=== PATIENT | male | born 1965 | race Caucasian/White ===

== ENCOUNTER 2016-05-24 19:09 | Emergency (ER) | payer MEDICARE ==
[~2016-05-24] VITALS: Ht 175.3 cm; Wt 79.4 kg
[2016-05-24] MEDS ORDERED: LITH600C PO (19:51)
[2016-05-24] MEDS ORDERED: SERO400T PO (19:51)
[2016-05-24 20:23] LABS: MEAN CORPUSCULAR HEMOGLOBIN 32.9 pg (27.0-33.0); MEAN CORPUSCULAR HGB CONC 34.6 g/dl (32.0-36.5); MEAN CORPUSCULAR VOLUME 95.1 fl (80.0-96.0); RED CELL DISTRIBUTION WIDTH 12.7 % (11.5-14.5); WHITE BLOOD COUNT 5.7 K/mm3 (4.0-10.0)
[2016-05-24 20:35] LABS: METHADONE URINE NEGATIVE (NEGATIVE)
[2016-05-24 20:50] LABS: ALBUMIN 4.2 GM/DL (3.2-5.2); ALBUMIN/GLOBULIN RATIO 1.45 (1.00-1.93); ALKALINE PHOSPHATASE 69 U/L (45-117); ALT/SGPT 181 U/L (12-78); ANION GAP 10 MEQ/L (8-16); AST/SGOT 118 U/L (15-37); BILIRUBIN,DIRECT 0.1 MG/DL (0.0-0.2); BILIRUBIN,TOTAL 0.3 MG/DL (0.2-1.0); BLOOD UREA NITROGEN 6 MG/DL (7-18); CALCIUM LEVEL 8.2 MG/DL (8.5-10.1); CARBON DIOXIDE LEVEL 23 MEQ/L (21-32); CHLORIDE LEVEL 104 MEQ/L (98-107); CREATININE FOR GFR 0.54 MG/DL (0.70-1.30); GLOMERULAR FILTRATION RATE > 60.0 (>56); GLUCOSE, FASTING 87 MG/DL (70-105); SODIUM LEVEL 137 MEQ/L (136-145); TOTAL PROTEIN 7.1 GM/DL (6.4-8.2)
[2016-05-25] MEDS ORDERED: METAL LOCK LOOP XX ONE ×2 (02:40→11:15)
[2016-05-25] MEDS ORDERED: OXAZEPAM 15 MG CAP PO ONE (06:45)
[2016-05-25 13:13] VITALS: BP 160/91
[2016-05-26] MEDS ORDERED: METAL LOCK LOOP XX ONE (18:40)
== END 2016-05-25 14:21 | disposition home or self-care (01) ==
LOC: M ED 19:09
DX: F10.229 Alcohol dependence with intoxication, unspecified (principal); F32.9 Major depressive disorder, single episode, unspecified; R45.851 Suicidal ideations; Z91.5 Personal history of self-harm; F17.210 Nicotine dependence, cigarettes, uncomplicated
CPT/HCPCS: 36415; 80048; 80076; 80178; 80306; 84443; 85027; 99285; G0480

== ENCOUNTER 2016-08-25 12:15 | Emergency (ER) | payer MEDICARE, OTHER ==
[~2016-08-25] VITALS: Ht 175.3 cm; Wt 79.5 kg
[~2016-08-25 12:15] MED LIST: LITH600C PO; SERO400T PO
[2016-08-25] MEDS ORDERED: ATIV1TAB7 PO (12:40)
[2016-08-25] MEDS ORDERED: GABA-283 PO (12:40)
[2016-08-25] MEDS ORDERED: AMLO10TA2 PO (12:40)
[2016-08-25 13:02] LABS: MEAN CORPUSCULAR HGB CONC 34.5 g/dl (32.0-36.5); MEAN CORPUSCULAR VOLUME 95.6 fl (80.0-96.0); RED CELL DISTRIBUTION WIDTH 13.3 % (11.5-14.5); WHITE BLOOD COUNT 9.2 K/mm3 (4.0-10.0)
[2016-08-25 13:22] LABS: ALBUMIN 3.7 GM/DL (3.2-5.2); ALBUMIN/GLOBULIN RATIO 1.03 (1.00-1.93); ALKALINE PHOSPHATASE 90 U/L (45-117); ALT/SGPT 63 U/L (12-78); ANION GAP 9 MEQ/L (8-16); AST/SGOT 49 U/L (15-37); BILIRUBIN,DIRECT 0.1 MG/DL (0.0-0.2); BILIRUBIN,TOTAL 0.4 MG/DL (0.2-1.0); BLOOD UREA NITROGEN 4 MG/DL (7-18); CALCIUM LEVEL 8.6 MG/DL (8.5-10.1); CARBON DIOXIDE LEVEL 25 MEQ/L (21-32); CHLORIDE LEVEL 103 MEQ/L (98-107); CREATININE FOR GFR 0.48 MG/DL (0.70-1.30); GLOMERULAR FILTRATION RATE > 60.0 (>56); GLUCOSE, FASTING 84 MG/DL (70-105); POTASSIUM SERUM 4.1 MEQ/L (3.5-5.1); SODIUM LEVEL 137 MEQ/L (136-145); TOTAL PROTEIN 7.3 GM/DL (6.4-8.2)
[2016-08-25 14:36] LABS: METHADONE URINE NEGATIVE (NEGATIVE)
[2016-08-25 22:22] VITALS: BP 134/74
== END 2016-08-25 22:24 | disposition home or self-care (01) ==
LOC: M ED 14:49
DX: F10.229 Alcohol dependence with intoxication, unspecified (principal); F32.9 Major depressive disorder, single episode, unspecified; Z91.5 Personal history of self-harm; F17.200 Nicotine dependence, unspecified, uncomplicated; Z79.899 Other long term (current) drug therapy; Z88.6 Allergy status to analgesic agent; Z88.5 Allergy status to narcotic agent; Z88.0 Allergy status to penicillin; Z91.040 Latex allergy status
CPT/HCPCS: 36415; 80048; 80076; 80306; 84443; 85027; 99284; G0480

== ENCOUNTER 2017-02-03 22:08 | Emergency (ER) | payer MEDICARE ==
[~2017-02-03] VITALS: Ht 177.8 cm; Wt 77.3 kg
[~2017-02-03 22:08] MED LIST changes: +AMLO10TA2 PO; +ATIV1TAB7 PO; +GABA-283 PO
[2017-02-03 23:15] LABS: MEAN CORPUSCULAR HEMOGLOBIN 32.7 pg (27.0-33.0); MEAN CORPUSCULAR HGB CONC 35.2 g/dl (32.0-36.5); PLATELET COUNT, AUTOMATED 297 10^3/uL (150-450); RED CELL DISTRIBUTION WIDTH 13.5 % (11.5-14.5); WHITE BLOOD COUNT 5.9 10^3/uL (4.0-10.0)
[2017-02-03 23:46] LABS: METHADONE URINE NEGATIVE (NEGATIVE)
[2017-02-03 23:58] LABS: ALBUMIN/GLOBULIN RATIO 1.14 (1.00-1.93); ALKALINE PHOSPHATASE 58 U/L (45-117); ALT/SGPT 74 U/L (12-78); ANION GAP 8 MEQ/L (8-16); AST/SGOT 63 U/L (7-37); BILIRUBIN,DIRECT < 0.1 MG/DL (0.0-0.2); BILIRUBIN,TOTAL 0.2 MG/DL (0.2-1.0); BLOOD UREA NITROGEN 8 MG/DL (7-18); CALCIUM LEVEL 8.5 MG/DL (8.5-10.1); CARBON DIOXIDE LEVEL 27 MEQ/L (21-32); CHLORIDE LEVEL 108 MEQ/L (98-107); CREATININE FOR GFR 0.75 MG/DL (0.70-1.30); GLOMERULAR FILTRATION RATE > 60.0 (>56); GLUCOSE, FASTING 92 MG/DL (70-105); POTASSIUM SERUM 4.2 MEQ/L (3.5-5.1); SODIUM LEVEL 143 MEQ/L (136-145); TOTAL PROTEIN 7.5 GM/DL (6.4-8.2)
[2017-02-04] MEDS ORDERED: LORazepam 1 MG TAB PO STA (10:24)
[2017-02-04] MEDS ORDERED: OXAZEPAM 15 MG CAP PO ONE (12:00)
[2017-02-04 18:29] VITALS: BP 172/112
== END 2017-02-04 18:32 ==
LOC: M ED 22:08
DX: F10.229 Alcohol dependence with intoxication, unspecified (principal)
CPT/HCPCS: 80048; 80076; 80307; 84443; 85027; 99284; G0480

== ENCOUNTER 2017-04-11 15:11 | Inpatient (IN) | payer MEDICARE ==
[2017-04-11 16:17] LABS: HEMATOCRIT 39.2 % (42.0-52.0); HEMOGLOBIN 13.7 g/dl (14.0-18.0); MEAN CORPUSCULAR HEMOGLOBIN 32.4 pg (27.0-33.0); MEAN CORPUSCULAR HGB CONC 34.9 g/dl (32.0-36.5); MEAN CORPUSCULAR VOLUME 92.7 fl (80.0-96.0); PLATELET COUNT, AUTOMATED 255 10^3/uL (150-450); RED BLOOD COUNT 4.23 10^6/uL (4.30-6.10); RED CELL DISTRIBUTION WIDTH 13.2 % (11.5-14.5); WHITE BLOOD COUNT 7.7 10^3/uL (4.0-10.0)
[2017-04-11 16:30] LABS: AMPHETAMINES LEVEL URINE NEGATIVE (NEGATIVE); BARBITURATES URINE NEGATIVE (NEGATIVE); BENZODIAZEPINES URINE NEGATIVE (NEGATIVE); CANNABINOIDS URINE NEGATIVE (NEGATIVE); COCAINE METABOLITE URINE NEGATIVE (NEGATIVE); METHADONE URINE NEGATIVE (NEGATIVE); OPIATES URINE NEGATIVE (NEGATIVE); PHENCYCLIDINE URINE NEGATIVE (NEGATIVE)
[2017-04-11 16:41] LABS: ALBUMIN 4.6 GM/DL (3.2-5.2); ALBUMIN/GLOBULIN RATIO 1.48 (1.00-1.93); ALKALINE PHOSPHATASE 65 U/L (45-117); ALT/SGPT 39 U/L (12-78); ANION GAP 10 MEQ/L (8-16); AST/SGOT 35 U/L (7-37); BILIRUBIN,DIRECT < 0.1 MG/DL (0.0-0.2); BILIRUBIN,TOTAL 0.2 MG/DL (0.2-1.0); BLOOD UREA NITROGEN 9 MG/DL (7-18); CARBON DIOXIDE LEVEL 25 MEQ/L (21-32); CHLORIDE LEVEL 105 MEQ/L (98-107); CREATININE FOR GFR 0.56 MG/DL (0.70-1.30); ETHYL ALCOHOL (ETHANOL) 0.307 % (0.000-0.010); GLOMERULAR FILTRATION RATE > 60.0 (>56); GLUCOSE, FASTING 83 MG/DL (70-100); POTASSIUM SERUM 4.1 MEQ/L (3.5-5.1); SALICYLATE LEVEL 5.7 MG/DL (5.0-30.0); SODIUM LEVEL 140 MEQ/L (136-145); THYROID STIMULATING HORMONE 0.272 uIU/ML (0.358-3.740); TOTAL PROTEIN 7.7 GM/DL (6.4-8.2)
[2017-04-11 16:47] LABS: ACETAMINOPHEN LEVEL < 2.0 UG/ML (10.0-30.0)
[2017-04-12] MEDS: PHENobarbital 30 MG TAB PO (04:30)
[2017-04-12] MEDS ORDERED: MOM 30ML SUSPENSION UDC PO (06:15)
[2017-04-12] MEDS ORDERED: MAALOX 30 ML SUSP *UDC PO (06:15)
[2017-04-12] MEDS: THIAMINE 100 MG TAB PO ×2 (10:58→21:15)
[2017-04-12] MEDS: FOLIC ACID 1 MG TAB PO (10:58)
[2017-04-12] MEDS: MULTIVITAMINS/MINERALS THERAP 1 TAB PO (10:58)
[2017-04-12] MEDS: LORazepam 2 MG TAB PO (11:06)
[2017-04-12] MEDS: NICOTINE 21MG/24HR 1 EA TRANSDERMAL TD (12:01)
[2017-04-12] MEDS: LISINOPRIL 40 MG TAB PO (12:31)
[2017-04-12] MEDS: QUEtiapine FUMARATE 200 MG TAB PO ×2 (12:49→21:15)
[2017-04-12] MEDS: levETIRAcetam 250MG TABLET (KEPPRA) PO ×2 (12:49→21:16)
[2017-04-12] MEDS: traZODone 50 MG TAB PO (21:15)
[2017-04-13] MEDS: MULTIVITAMINS/MINERALS THERAP 1 TAB PO (08:38)
[2017-04-13] MEDS: FOLIC ACID 1 MG TAB PO (08:38)
[2017-04-13] MEDS: THIAMINE 100 MG TAB PO ×2 (08:38→20:22)
[2017-04-13] MEDS: levETIRAcetam 250MG TABLET (KEPPRA) PO ×2 (08:38→20:22)
[2017-04-13] MEDS: LISINOPRIL 40 MG TAB PO (08:38)
[2017-04-13] MEDS: QUEtiapine FUMARATE 200 MG TAB PO ×2 (08:38→20:22)
[2017-04-13] MEDS: NICOTINE 21MG/24HR 1 EA TRANSDERMAL TD (08:39)
[2017-04-13] MEDS: LORazepam 2 MG TAB PO (14:32)
[2017-04-14] MEDS: LISINOPRIL 40 MG TAB PO (08:22)
[2017-04-14] MEDS: FOLIC ACID 1 MG TAB PO (08:23)
[2017-04-14] MEDS: levETIRAcetam 250MG TABLET (KEPPRA) PO ×2 (08:23→20:12)
[2017-04-14] MEDS: MULTIVITAMINS/MINERALS THERAP 1 TAB PO (08:23)
[2017-04-14] MEDS: THIAMINE 100 MG TAB PO ×2 (08:23→20:12)
[2017-04-14] MEDS: QUEtiapine FUMARATE 200 MG TAB PO ×2 (08:23→21:26)
[2017-04-14] MEDS: NICOTINE 21MG/24HR 1 EA TRANSDERMAL TD (08:24)
[2017-04-14] MEDS: hydrOXYzine 50 MG TAB PO (17:07)
[2017-04-15] MEDS: LISINOPRIL 40 MG TAB PO (08:06)
[2017-04-15] MEDS: MULTIVITAMINS/MINERALS THERAP 1 TAB PO (08:06)
[2017-04-15] MEDS: SERTRALINE HCL 50 MG TAB PO (08:06)
[2017-04-15] MEDS: QUEtiapine FUMARATE 200 MG TAB PO ×2 (08:06→20:04)
[2017-04-15] MEDS: FOLIC ACID 1 MG TAB PO (08:06)
[2017-04-15] MEDS: levETIRAcetam 250MG TABLET (KEPPRA) PO ×2 (08:06→20:04)
[2017-04-15] MEDS: NICOTINE 21MG/24HR 1 EA TRANSDERMAL TD (08:08)
[2017-04-15 08:17] LABS: FREE THYROXINE INDEX 1.9 % (1.4-3.8); T UPTAKE 33 % (33-40); THYROXINE (T4) 5.9 UG/DL (4.5-12.0)
[2017-04-15] MEDS ORDERED: traZODone 50 MG TAB PO (18:30)
[2017-04-16] MEDS: SERTRALINE HCL 50 MG TAB PO (08:41)
[2017-04-16] MEDS: FOLIC ACID 1 MG TAB PO (08:41)
[2017-04-16] MEDS: LISINOPRIL 40 MG TAB PO (08:41)
[2017-04-16] MEDS: QUEtiapine FUMARATE 200 MG TAB PO (08:41)
[2017-04-16] MEDS: levETIRAcetam 250MG TABLET (KEPPRA) PO (08:41)
[2017-04-16] MEDS: MULTIVITAMINS/MINERALS THERAP 1 TAB PO (08:41)
[2017-04-16] MEDS: NICOTINE 21MG/24HR 1 EA TRANSDERMAL TD (08:42)
== END 2017-04-16 13:57 | disposition home or self-care (01) | DRG 897 ==
LOC: M ED INP 04-12 06:15 → M PSY 04-12 09:06 → M ED 15:11
DX: F10.24 Alcohol dependence with alcohol-induced mood disorder (principal); R45.851 Suicidal ideations; I10 Essential (primary) hypertension; S62.101D Fracture of unspecified carpal bone, right wrist, subsequent encounter for fracture with routine healing; F17.210 Nicotine dependence, cigarettes, uncomplicated; R94.6 Abnormal results of thyroid function studies; Z79.899 Other long term (current) drug therapy; Z98.1 Arthrodesis status; Z88.0 Allergy status to penicillin; Z91.040 Latex allergy status; Z88.6 Allergy status to analgesic agent; Z88.5 Allergy status to narcotic agent; Z88.8 Allergy status to other drugs, medicaments and biological substances; X58.XXXD Exposure to other specified factors, subsequent encounter; Y93.9 Activity, unspecified

== ENCOUNTER 2017-10-01 10:29 | Day surgery (SDC) | payer MEDICARE ==
[2017-10-01] MEDS ORDERED: PROPOFOL 200 MG/20 ML VIAL As Ordered ×2 (10:39→12:32)
[2017-10-01] MEDS ORDERED: fentaNYL 100 MCG/2 ML INJECTION (J3010) As Ordered (10:40)
[2017-10-01] MEDS: NS 1,000 ML IV (10:45)
[2017-10-01] MEDS: MIDAZOLAM INJ 2 MG/2 ML VIAL (J2250) IV ×2 (11:27→11:32)
[2017-10-01] MEDS ORDERED: LIDOCAINE 2% INJ 100 MG/5 ML SDV (FOR ANES.) As Ordered (12:15)
== END 2017-10-01 13:27 | disposition home or self-care (01) ==
LOC: M OPP 10:29
DX: Z12.11 Encounter for screening for malignant neoplasm of colon (principal); Z80.0 Family history of malignant neoplasm of digestive organs; D12.5 Benign neoplasm of sigmoid colon; K62.1 Rectal polyp; K64.0 First degree hemorrhoids; K92.1 Melena; K44.9 Diaphragmatic hernia without obstruction or gangrene; K31.89 Other diseases of stomach and duodenum; I10 Essential (primary) hypertension; Z87.19 Personal history of other diseases of the digestive system; F32.9 Major depressive disorder, single episode, unspecified; F41.9 Anxiety disorder, unspecified; R56.9 Unspecified convulsions; J44.9 Chronic obstructive pulmonary disease, unspecified; J45.909 Unspecified asthma, uncomplicated; G47.30 Sleep apnea, unspecified; Z98.1 Arthrodesis status; F17.210 Nicotine dependence, cigarettes, uncomplicated; Z88.8 Allergy status to other drugs, medicaments and biological substances; Z91.040 Latex allergy status; Z88.2 Allergy status to sulfonamides; Z79.899 Other long term (current) drug therapy; Z80.42 Family history of malignant neoplasm of prostate
CPT/HCPCS: 45385

== ENCOUNTER 2018-05-08 11:50 | Emergency (ER) | payer MEDICARE, OTHER ==
[~2018-05-08] VITALS: Ht 177.8 cm; Wt 80.5 kg
[~2018-05-08 11:50] MED LIST changes: -AMLO10TA2 PO; +AMLO10TA5 PO; +ASPI1TAB PO; +FOLI1TAB11 PO; -GABA-283 PO; +GABA-845 PO; +KEPP1TAB PO; +KEPP250T5 PO; +LISI40TA PO; +NICO21PAT TD; +QUET1TAB9 PO; +RISP1TAB3 PO; +SERO200T PO; +SERT50TA PO; +TRAZO50TA PO; +VENTAER INH
[2018-05-08] MEDS ORDERED: HALOPERIDOL 5 MG/ML VIAL (J1630) IM ONE (13:00)
[2018-05-08] MEDS ORDERED: LORazepam 2 MG/ML VIAL (J2060) IM ONE (13:00)
[2018-05-08] MEDS ORDERED: LORazepam 2 MG/ML VIAL (J2060) As Ordered ONE (13:01)
[2018-05-08] MEDS ORDERED: HALOPERIDOL 5 MG/ML VIAL (J1630) As Ordered ONE (13:02)
[2018-05-08 14:10] LABS: HEMATOCRIT 40.4 % (42.0-52.0); HEMOGLOBIN 14.2 g/dl (13.5-17.5); MEAN CORPUSCULAR HEMOGLOBIN 31.8 pg (27.0-33.0); MEAN CORPUSCULAR HGB CONC 35.1 g/dl (32.0-36.5); MEAN CORPUSCULAR VOLUME 90.4 fl (80.0-96.0); PLATELET COUNT, AUTOMATED 266 10^3/uL (150-450); RED BLOOD COUNT 4.47 10^6/uL (4.30-6.10); WHITE BLOOD COUNT 8.5 10^3/uL (4.0-10.0)
[2018-05-08 14:18] LABS: AMPHETAMINES LEVEL URINE NEGATIVE (NEGATIVE); BARBITURATES URINE NEGATIVE (NEGATIVE); BENZODIAZEPINES URINE NEGATIVE (NEGATIVE); CANNABINOIDS URINE NEGATIVE (NEGATIVE); COCAINE METABOLITE URINE NEGATIVE (NEGATIVE); METHADONE URINE NEGATIVE (NEGATIVE); OPIATES URINE NEGATIVE (NEGATIVE); PHENCYCLIDINE URINE NEGATIVE (NEGATIVE)
[2018-05-08 14:28] LABS: ACETAMINOPHEN LEVEL < 2.0 UG/ML (10.0-30.0); ALBUMIN 4.4 GM/DL (3.2-5.2); ALT/SGPT 35 U/L (12-78); BILIRUBIN,DIRECT < 0.1 MG/DL (0.0-0.2); BILIRUBIN,TOTAL 0.2 MG/DL (0.2-1.0); BLOOD UREA NITROGEN 7 MG/DL (7-18); CALCIUM LEVEL 8.2 MG/DL (8.5-10.1); CARBON DIOXIDE LEVEL 17 MEQ/L (21-32); CHLORIDE LEVEL 104 MEQ/L (98-107); CREATININE FOR GFR 0.61 MG/DL (0.70-1.30); ETHYL ALCOHOL (ETHANOL) 0.231 % (0.000-0.010); GLOMERULAR FILTRATION RATE > 60.0 (>56); GLUCOSE, FASTING 87 MG/DL (70-100); SALICYLATE LEVEL 7.5 MG/DL (5.0-30.0); SODIUM LEVEL 135 MEQ/L (136-145); THYROID STIMULATING HORMONE 0.407 uIU/ML (0.358-3.740); TOTAL PROTEIN 7.7 GM/DL (6.4-8.2)
--- NOTE | 2018-05-08 16:11 | REP ---
RIGHT WRIST, FOUR VIEWS: There is no evidence of an acute fracture, dislocation or intrinsic bone disease. IMPRESSION: No fracture or dislocation. Electronically Signed by Rafi Be MD 05/11/2018 12:00 P
--- NOTE | 2018-05-08 16:12 | REP ---
RIGHT HAND: There is no evidence of an acute fracture, dislocation or intrinsic bone disease. IMPRESSION: No fracture or dislocation. Electronically Signed by Rafi Be MD 05/11/2018 12:01 P
[2018-05-08] MEDS ORDERED: OXAZEPAM 15 MG CAP PO ONE (20:45)
[2018-05-08] MEDS ORDERED: OXAZ30CA2 PO (21:24)
[2018-05-08 21:41] VITALS: BP 139/94
== END 2018-05-08 22:06 | disposition home or self-care (01) ==
LOC: M ED 11:50
DX: F10.129 Alcohol abuse with intoxication, unspecified (principal); F32.9 Major depressive disorder, single episode, unspecified; F43.0 Acute stress reaction; I10 Essential (primary) hypertension; F41.9 Anxiety disorder, unspecified; R45.851 Suicidal ideations; Z79.899 Other long term (current) drug therapy; Z88.0 Allergy status to penicillin; Z88.5 Allergy status to narcotic agent; Z88.8 Allergy status to other drugs, medicaments and biological substances; Z91.040 Latex allergy status
CPT/HCPCS: 73110; 73130; 80048; 80076; 80307; 84443; 85027; 96372; 99285; G0480; J1630; J2060

== ENCOUNTER 2018-05-25 23:09 | Emergency (ER) | payer MEDICARE ==
[~2018-05-25 23:09] MED LIST changes: -ASPI1TAB PO; +ASPI81TA26 PO; +OXAZ30CA2 PO; +SERT-141 PO; -SERT50TA PO
[2018-05-25] MEDS ORDERED: OLANZapine INTRAMUSCULAR 10 MG VIAL (S0166) IM ONE (23:15)
[2018-05-25] MEDS ORDERED: LORazepam 2 MG/ML VIAL (J2060) IM ONE (23:15)
[2018-05-25 23:51] LABS: HEMATOCRIT 39.6 % (42.0-52.0); HEMOGLOBIN 13.7 g/dl (13.5-17.5); MEAN CORPUSCULAR HEMOGLOBIN 31.7 pg (27.0-33.0); MEAN CORPUSCULAR HGB CONC 34.6 g/dl (32.0-36.5); MEAN CORPUSCULAR VOLUME 91.7 fl (80.0-96.0); PLATELET COUNT, AUTOMATED 175 10^3/uL (150-450); RED BLOOD COUNT 4.32 10^6/uL (4.30-6.10); WHITE BLOOD COUNT 7.5 10^3/uL (4.0-10.0)
--- NOTE | 2018-05-26 00:21 | REPVR ---
EXAM: CT Head Without Contrast EXAM DATE/TIME: 05/25/2018 11:21 PM CLINICAL HISTORY: 53 years old, male; Injury or trauma; Fall TECHNIQUE: Imaging protocol: Axial computed tomography images of the head/brain without contrast. Radiation optimization: All CT scans at this facility use at least one of these dose optimization techniques: automated exposure control; mA and/or kV adjustment per patient size (includes targeted exams where dose is matched to clinical indication); or iterative reconstruction. COMPARISON: No relevant prior studies available. FINDINGS: Brain: No evidence of mass, midline shift, or mass effect. Mild small vessel ischemic changes. No evidence of hemorrhage. Ventricles: Normal. No ventriculomegaly. Bones/joints: Unremarkable. No acute fracture. Sinuses: Mild mucosal thickening of the ethmoidal air cells and bilateral maxillary sinuses. Mastoid air cells: Visualized mastoid air cells are unremarkable. No mastoid effusion. Soft tissues: Mild right parietal soft tissue swelling. IMPRESSION: No acute intracranial abnormality. Electronically signed by: Cailin Mitchell On 05/26/2018 00:21:03 AM
[2018-05-26 00:23] LABS: AMPHETAMINES LEVEL URINE NEGATIVE (NEGATIVE); BARBITURATES URINE NEGATIVE (NEGATIVE); BENZODIAZEPINES URINE NEGATIVE (NEGATIVE); CANNABINOIDS URINE NEGATIVE (NEGATIVE); COCAINE METABOLITE URINE NEGATIVE (NEGATIVE); METHADONE URINE NEGATIVE (NEGATIVE); OPIATES URINE NEGATIVE (NEGATIVE); PHENCYCLIDINE URINE NEGATIVE (NEGATIVE)
--- NOTE | 2018-05-26 00:27 | REPVR ---
EXAM: CT Cervical Spine Without Contrast EXAM DATE/TIME: 05/25/2018 11:21 PM CLINICAL HISTORY: 53 years old, male; Injury or trauma; Fall; Initial encounter; Concussion /head injury TECHNIQUE: Imaging protocol: Axial computed tomography images of the cervical spine without intravenous contrast. Coronal and sagittal reformatted images were created and reviewed. Radiation optimization: All CT scans at this facility use at least one of these dose optimization techniques: automated exposure control; mA and/or kV adjustment per patient size (includes targeted exams where dose is matched to clinical indication); or iterative reconstruction. COMPARISON: No relevant prior studies available. FINDINGS: Vertebrae: No acute fracture. Normal alignment. Discs/Spinal canal/Neural foramina: No spinal stenosis. No neural foraminal narrowing. Soft tissues: Unremarkable. Lungs: Lung apices are normal. IMPRESSION: No acute findings. Electronically signed by: Cailin Mitchell On 05/26/2018 00:26:31 AM
[2018-05-26 00:39] LABS: ACETAMINOPHEN LEVEL < 2.0 UG/ML (10.0-30.0); ALBUMIN 4.2 GM/DL (3.2-5.2); ALT/SGPT 75 U/L (12-78); BILIRUBIN,DIRECT < 0.1 MG/DL (0.0-0.2); BILIRUBIN,TOTAL 0.2 MG/DL (0.2-1.0); BLOOD UREA NITROGEN 7 MG/DL (7-18); CALCIUM LEVEL 8.7 MG/DL (8.5-10.1); CARBON DIOXIDE LEVEL 23 MEQ/L (21-32); CHLORIDE LEVEL 111 MEQ/L (98-107); ETHYL ALCOHOL (ETHANOL) 0.291 % (0.000-0.010); GLOMERULAR FILTRATION RATE > 60.0 (>56); GLUCOSE, FASTING 89 MG/DL (70-100); POTASSIUM SERUM 4.1 MEQ/L (3.5-5.1); SALICYLATE LEVEL 4.7 MG/DL (5.0-30.0); SODIUM LEVEL 143 MEQ/L (136-145); THYROID STIMULATING HORMONE 0.771 uIU/ML (0.358-3.740); TOTAL PROTEIN 7.3 GM/DL (6.4-8.2)
[2018-05-26] MEDS ORDERED: NS 1,000 ML IV ONE ×2 (01:15→07:30)
[2018-05-26] MEDS ORDERED: OXAZEPAM 15 MG CAP PO ONE (01:15)
--- NOTE | 2018-05-26 06:53 | ECGEPIP ---
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
[2018-05-26] MEDS ORDERED: LORazepam 2 MG TAB PO PRN (07:30)
[2018-05-26] MEDS ORDERED: THIAMINE 100 MG TAB PO SCH (09:00)
[2018-05-26] MEDS ORDERED: FOLIC ACID 1 MG TAB PO SCH (09:00)
[2018-05-26] MEDS ORDERED: MULTIVITAMINS/MINERALS THERAP 1 TAB PO SCH (09:00)
[2018-05-26] MEDS ORDERED: levETIRAcetam INJection 1,000 MG in D5W 100 ML IV ONE (10:45)
[2018-05-26 12:01] VITALS: BP 140/109
== END 2018-05-26 13:50 | disposition home or self-care (01) ==
LOC: M ED 23:09
DX: F10.10 Alcohol abuse, uncomplicated (principal); R56.9 Unspecified convulsions; F17.210 Nicotine dependence, cigarettes, uncomplicated
CPT/HCPCS: 70450; 72125; 80048; 80076; 80307; 84443; 85027; 93005; 96361; 96365; 96366; 96372; 99285; G0480; J1953; J2060

== ENCOUNTER 2018-11-09 23:56 | Inpatient (IN) | payer MEDICARE ==
[~2018-11-09] VITALS: Ht 175.3 cm; Wt 79.5 kg
[~2018-11-09 23:56] MED LIST changes: -QUET1TAB9 PO; +QUET200T2 PO; +TRAZ1TAB10 PO; -TRAZO50TA PO
[2018-11-10] MEDS ORDERED: LISI-538 PO (00:08)
[2018-11-10] MEDS ORDERED: VENL150C43 (00:08)
[2018-11-10 00:44] LABS: HEMATOCRIT 42.2 % (42.0-52.0); HEMOGLOBIN 14.8 g/dl (13.5-17.5); MEAN CORPUSCULAR HEMOGLOBIN 33.7 pg (27.0-33.0); MEAN CORPUSCULAR HGB CONC 35.1 g/dl (32.0-36.5); MEAN CORPUSCULAR VOLUME 96.1 fl (80.0-96.0); PLATELET COUNT, AUTOMATED 148 10^3/uL (150-450); RED BLOOD COUNT 4.39 10^6/uL (4.30-6.10); WHITE BLOOD COUNT 8.3 10^3/uL (4.0-10.0)
[2018-11-10 00:50] LABS: AMPHETAMINES LEVEL URINE NEGATIVE (NEGATIVE); BARBITURATES URINE NEGATIVE (NEGATIVE); BENZODIAZEPINES URINE NEGATIVE (NEGATIVE); CANNABINOIDS URINE NEGATIVE (NEGATIVE); COCAINE METABOLITE URINE NEGATIVE (NEGATIVE); METHADONE URINE NEGATIVE (NEGATIVE); OPIATES URINE NEGATIVE (NEGATIVE); PHENCYCLIDINE URINE NEGATIVE (NEGATIVE)
[2018-11-10] MEDS ORDERED: levETIRAcetam INJection 1,000 MG in D5W 100 ML IV ONE (01:00)
[2018-11-10 01:26] LABS: ACETAMINOPHEN LEVEL < 2.0 UG/ML (10.0-30.0); ALBUMIN 4.2 GM/DL (3.2-5.2); ALT/SGPT 194 U/L (12-78); BILIRUBIN,DIRECT 0.1 MG/DL (0.0-0.2); BILIRUBIN,TOTAL 0.2 MG/DL (0.2-1.0); BLOOD UREA NITROGEN 7 MG/DL (7-18); CARBON DIOXIDE LEVEL 23 MEQ/L (21-32); CHLORIDE LEVEL 108 MEQ/L (98-107); CREATININE FOR GFR 0.59 MG/DL (0.70-1.30); ETHYL ALCOHOL (ETHANOL) 0.279 % (0.000-0.010); GLOMERULAR FILTRATION RATE > 60.0 (>56); GLUCOSE, FASTING 86 MG/DL (70-100); POTASSIUM SERUM 3.8 MEQ/L (3.5-5.1); SALICYLATE LEVEL 6.7 MG/DL (5.0-30.0); SODIUM LEVEL 141 MEQ/L (136-145); THYROID STIMULATING HORMONE 0.783 uIU/ML (0.358-3.740); TOTAL PROTEIN 7.4 GM/DL (6.4-8.2)
[2018-11-10] MEDS ORDERED: METAL LOCK LOOP XX ONE (03:42)
[2018-11-10] MEDS ORDERED: OXAZEPAM 15 MG CAP PO ONE ×2 (12:30→19:00)
[2018-11-10] MEDS ORDERED: ASPI81TA85 PO (13:31)
[2018-11-10] MEDS ORDERED: B-12100021 PO (13:31)
[2018-11-10] MEDS ORDERED: OMEP-218 PO (13:32)
[2018-11-10] MEDS ORDERED: LISINOPRIL 20 MG TAB PO ONE (16:15)
[2018-11-10] MEDS ORDERED: NICOTINE 21MG/24HR 1 EA TRANSDERMAL TD ONE (16:15)
[2018-11-10] MEDS ORDERED: MAALOX 30 ML SUSP *UDC PO PRN (21:30)
[2018-11-10] MEDS ORDERED: MOM 30ML SUSPENSION UDC PO PRN (21:30)
[2018-11-10] MEDS ORDERED: ACETAMINOPHEN TAB 650MG DOSE (2X325MG) PO PRN (21:30)
[2018-11-10] MEDS: THIAMINE 100 MG TAB PO SCH (21:57)
[2018-11-10] MEDS: LORazepam 2 MG TAB PO PRN (22:11)
[2018-11-11] VITALS (8 sets, daily range): BP systolic 117–145; BP diastolic 67–95
[2018-11-11] MEDS: traZODone 50 MG TAB PO PRN ×2 (00:36→20:17)
[2018-11-11] MEDS: FOLIC ACID 1 MG TAB PO SCH (08:49)
[2018-11-11] MEDS: THIAMINE 100 MG TAB PO SCH (08:49)
[2018-11-11] MEDS: MULTIVITAMINS/MINERALS THERAP 1 TAB PO SCH (08:49)
[2018-11-11] MEDS ORDERED: NITROGLYCERIN 0.3 MG SUBL TAB SL PRN (12:00)
[2018-11-11] MEDS ORDERED: ALBUTEROL SULFATE 2.5 MG/0.5 ML INH NEB SOLN INH PRN (12:00)
[2018-11-11] MEDS: ALBUTEROL SULFATE 2.5 MG/0.5 ML INH NEB SOLN INH SCH ×3 (12:00→18:05)
--- NOTE | 2018-11-11 12:09 | HPEPDOC ---
General Date of Admission Nov 10, 2018 at 21:27 Date of Service: Nov 11, 2018 Chief Complaint The patient is a 53-year-old male who presented to the ER after experiencing suicidal thoughts History of Present Illness Patient is a 53-year-old male with a past medical history significant for hypertension, COPD, history of alcohol abuse with withdrawal symptoms (Seizures), Depression / Anxiety / Hx of Suicidal Ideation who presented to the emergency room after experiencing suicidal thoughts. Patient reported that he received a letter from his daughter that was discouraging.. He soon felt depressed and began drinking heavily. He noted to his family that he felt unsafe and he contacted suicide Hotline. Hospitalist service was consultated for medical screening evaluation. . C urrently, patient reports mild headache. He does report a mild cough with chest tightness, however, this is not unusual for him. He denies any palpitations, shortness of breath, nausea, vomiting, abdominal pain, constipation, diarrhea, discomfort with urination. Patient denies any fevers or chills over the last 2 weeks. She reports that his appetite is normal. However, he does report a weight loss over the last 1 month of 10 pounds. Home Medications Scheduled Aspirin (Aspir 81) 81 Mg Tablet.dr, 81 MG PO DAILY, (Reported) Cyanocobalamin (Vitamin B-12) (B-12) 1,000 Mcg Tablet, 1,000 MCG PO DAILY, (Reported) Lisinopril (Lisinopril) 20 Mg Tablet, 20 MG PO DAILY, (Reported) Omeprazole (Omeprazole) 20 Mg Capsule.dr, 20 MG PO DAILY, (Reported) Allergies Coded Allergies: Penicillins (Verified Allergy, Unknown, 11/10/18) diphenhydramine (Verified Allergy, Unknown, 11/10/18) hydrocodone (Verified Allergy, Unknown, 11/10/18) latex (Verified Allergy, Unknown, 11/10/18) phenytoin (Verified Allergy, Unknown, 11/10/18) primidone (Verified Allergy, Unknown, 11/10/18) Past Medical History Medical History Hypertension, COPD, history of alcohol abuse with withdrawal symptoms (Seizures), Depression / Anxiety / Hx of Suicidal Ideation Surgical History Bilateral knee arthroscopy Lumbar fusion L4-5 Hernia repair at R inguinal area Right cervical lymph node biopsy, found to be benign Family History - Patient reports that his father was an alcoholic. 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 Review of Systems Other systems 10 point review of systems complete, all negative otherwise stated in HPI Vital Signs - Vitals: BP 135/88, HR 67, RR 18, Sat 97%RA, Temp 97.8F - General: Lying in bed, No acute distress, Speaking in full sentences, AAOx3 - HEENT: NC, AT, PERRLA - CVS: RRR, +S1S2 - Lungs: Fair air entry bilaterally, No rales / rhonchi; mild wheezing can be appreciated throughout upper and lower lung summers bilaterally - Abdomen: Soft, Non-distended, Non-tender - Extremities: No lower extremity edema, No calf tenderness - Neuro: No focal motor or sensory deficit - Skin: No visible rashes Plan / VTE VTE Prophylaxis Ordered?: Yes Plan Plan Suicidal ideation - Patient presented to the emergency room after experiencing suicidal thoughts and depression after receiving a discouraging her from his daughter - This currently being managed by psychiatry Transaminitis - likely 2/2 alcohol use - Will repeat lab work tomorrow AM to ensure stability Hypertension - BP well controlled - c/w Lisinorpil with holding parameters COPD - Patient is in no respiratory distress - Physical exam does reveal mild expiratory wheezing bilaterally - Will start Albuterol and Symbicort History of alcohol abuse - Patient is currently on CIWA scale with withdrawal precautions - c/w MVI, Thiamine and Folate Hx of withdrawal symptoms - Patient has a reported history of Seizures - Will restart Keppra from outpatient Depression / Anxiety / Hx of Suicidal Ideation - Currently being managed by psychiatry GERD - Will start Omeprazole DVT prophylaxis - c/w early ambulation Greenskeeper Laborer was present for the duration of his history and physical examination We will continue to follow this patient at this time for medical optimization JENA HERNÁNDEZ MD Nov 11, 2018 12:09
[2018-11-11] MEDS: LISINOPRIL 10 MG TAB PO SCH (12:44)
[2018-11-11] MEDS: ASPIRIN 81 MG ENTERIC TAB PO SCH (12:44)
[2018-11-11] MEDS: levETIRAcetam 250MG TABLET (KEPPRA) PO SCH ×2 (12:44→20:18)
[2018-11-11] MEDS: VENLAFAXINE **XR** 75MG CAPSULE PO SCH (12:45)
[2018-11-11] MEDS: OMEPRAZOLE 20 MG CAP PO SCH (12:46)
[2018-11-11] MEDS: FLUTICASONE PROP 0.05% NASAL SPRAY 16 GM (FLONASE) NARES SCH ×2 (12:48→20:18)
[2018-11-11] MEDS: SYMBICORT 160/4.5MCG INHALER 6GM INH SCH ×2 (12:48→20:17)
[2018-11-11] MEDS: LORazepam 2 MG TAB PO PRN (14:44)
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
[2018-11-11] MEDS: QUEtiapine FUMARATE 100 MG TAB PO SCH (20:17)
[2018-11-11] MEDS: LORazepam 1 MG TAB PO SCH (20:34)
[2018-11-12 06:00] VITALS: BP 144/78
[2018-11-12 06:31] VITALS: BP 144/78
[2018-11-12] MEDS: ALBUTEROL SULFATE 2.5 MG/0.5 ML INH NEB SOLN INH SCH ×5 (08:00→17:59)
[2018-11-12 10:06] LABS: ALBUMIN 3.4 GM/DL (3.2-5.2); ALT/SGPT 120 U/L (12-78); BILIRUBIN,TOTAL 0.3 MG/DL (0.2-1.0); BLOOD UREA NITROGEN 16 MG/DL (7-18); CALCIUM LEVEL 9.1 MG/DL (8.5-10.1); CARBON DIOXIDE LEVEL 26 MEQ/L (21-32); CHLORIDE LEVEL 108 MEQ/L (98-107); GLOMERULAR FILTRATION RATE > 60.0 (>56); GLUCOSE, FASTING 93 MG/DL (70-100); SODIUM LEVEL 141 MEQ/L (136-145); TOTAL PROTEIN 6.3 GM/DL (6.4-8.2)
[2018-11-12] MEDS: ASPIRIN 81 MG ENTERIC TAB PO SCH (10:06)
[2018-11-12] MEDS: levETIRAcetam 250MG TABLET (KEPPRA) PO SCH ×2 (10:06→20:27)
[2018-11-12] MEDS: THIAMINE 100 MG TAB PO SCH (10:06)
[2018-11-12] MEDS: LISINOPRIL 10 MG TAB PO SCH (10:06)
[2018-11-12] MEDS: MULTIVITAMINS/MINERALS THERAP 1 TAB PO SCH (10:06)
[2018-11-12] MEDS: OMEPRAZOLE 20 MG CAP PO SCH (10:06)
[2018-11-12] MEDS: FOLIC ACID 1 MG TAB PO SCH (10:06)
[2018-11-12] MEDS: LORazepam 1 MG TAB PO SCH (10:07)
[2018-11-12] MEDS: FLUTICASONE PROP 0.05% NASAL SPRAY 16 GM (FLONASE) NARES SCH ×2 (10:07→20:26)
[2018-11-12] MEDS: SYMBICORT 160/4.5MCG INHALER 6GM INH SCH ×2 (10:07→20:26)
[2018-11-12] MEDS: VENLAFAXINE **XR** 75MG CAPSULE PO SCH (10:07)
[2018-11-12 10:42] VITALS: BP 138/95
[2018-11-12] MEDS: LORazepam 2 MG TAB PO PRN (10:48)
[2018-11-12] MEDS: NICOTINE 21MG/24HR 1 EA TRANSDERMAL TD PRN (10:49)
--- NOTE | 2018-11-12 12:08 | IPNPDOC ---
Text Note Date of Service The patient was seen on 11/12/18. NOTE Subjective: Patient is a 53-year-old male with a past medical history significant for hypertension, COPD, history of alcohol abuse with withdrawal symptoms (Seizures), Depression / Anxiety / Hx of Suicidal Ideation who presented to the emergency room after experiencing suicidal thoughts. Patient reported that he received a letter from his daughter that was discouraging.. He soon felt depressed and began drinking heavily. He noted to his family that he felt unsafe and he contacted suicide Hotline. Hospitalist service was consulted for medical screening evaluation. Patient was seen and examined at the bedside. Currently patient reports that his breathing is doing significantly better. He denies any chest pain, palpitations or significant cough. He does report mild wheezing in eyes. A nausea, vomiting, abdominal pain. Denies any diarrhea. Objective: Vitals (See below) General: Lying in bed, no acute distress, comfortable, AAOx3 HEENT: NC, AT CVS: RRR, +S1S2 Lungs: Fair air entry b/l, mild wheezing appreciated bilaterally. Has improved significantly from yesterday, no rhonchi or rales Abdomen: Soft, ND, NT Extremities: - Edema, - Calf tenderness Assessment and plan: Suicidal ideation - Patient presented to the emergency room after experiencing suicidal thoughts and depression after receiving a discouraging her from his daughter - This currently being managed by psychiatry Transaminitis - likely 2/2 alcohol use - Hepatitis panel was pending - Counts appear to be improving Hypertension - BP well controlled - c/w Lisinopril with holding parameters COPD - Patient is in no respiratory distress - Physical exam shows improvement of wheezing - c/w Albuterol and Symbicort History of alcohol abuse - Patient is currently on CIWA scale with withdrawal precautions - c/w MVI, Thiamine and Folate Hx of withdrawal symptoms / Current Withdrawal precations - Patient has a reported history of Seizures - c/w Keppra from outpatient - c/w CIWA protocol and Ativan PRN - Will discuss with Psychiatry about considering Serax Depression / Anxiety / Hx of Suicidal Ideation - Currently being managed by psychiatry GERD - c/w Omeprazole DVT prophylaxis - c/w early ambulation Miniature Model Maker was present for the duration of his history and physical examination We will continue to follow this patient at this time for medical optimization VS,Fishbone, I+O VS, Fishbone, I+O Laboratory Tests 11/12/18 09:01 Calcium Level 9.1, Aspartate Amino Transf (AST/SGOT) 68 H, Alanine Aminotransferase (ALT/SGPT) 120 H, Alkaline Phosphatase 59, Total Bilirubin 0.3, Total Protein 6.3 L, Albumin 3.4 Vital Signs Date Time Temp Pulse Resp B/P (MAP) Pulse Ox O2 Delivery O2 Flow Rate FiO2 11/12/18 10:42 82 138/95 11/12/18 06:31 97.9 14 11/11/18 14:31 99 11/10/18 20:18 Room Air JENA HERNÁNDEZ MD Nov 12, 2018 12:08
[2018-11-12] MEDS: OXAZEPAM 15 MG CAP PO SCH ×2 (14:48→23:44)
[2018-11-12 18:00] VITALS: BP 128/80
--- NOTE | 2018-11-12 18:21 | MHIPN ---
DATE: 11/12/2018 SUBJECTIVE: "I'm feeling a little drowsy and when can I go home." OBJECTIVE: He is a 55-year-old male, , living with his who was admitted on legal status 9.39 for suicidal thoughts. He had an argument with his daughter. He got upset and wanted to kill himself by hanging. He changed his mind and called the crisis line. His was alerted. She went to the garage and found him with a dog chain. The patient was preparing for hanging. However, he denies it. He was intoxicated at the time. The patient has long history of alcohol dependence. He is partially compliant with his medication. Currently, the patient is somewhat drowsy. I spoke to his hospitalist who reported that the patient is withdrawing and he wants to place him on Serax instead of Ativan. He is clinical institute withdrawal assessment (CIWA) protocol. MENTAL STATUS EXAMINATION: Casually dressed, laying in his bed, somewhat drowsy. He was drowsy but after the evaluation he felt better. Speech is spontaneous. Mood is depressed. Affect is appropriate for the mood. Thought process: Linear and goal-directed. Thought content: Denied any suicidal or homicidal ideas. Denies any hallucinations. Cognition: Alert, oriented to time, place and person. Memory: Immediate, remote, recent are good. Insight and judgment are limited. VITAL SIGNS: Temperature 97.9, pulse is 56, respiratory rate is 14, blood pressure is 124/78. REVIEW OF SYSTEMS: Denied chest pain or palpitations. Denied abdominal pain or dysuria. Denied cough or shortness of breath. Denied dizziness, numbness or tingling. Gait is normal. CURRENT MEDICATIONS: - oxazepam 15 mg by mouth every eight hours - thiamine 100 mg daily - quetiapine 100 mg at night - venlafaxine 150 mg once daily - Keppra 1500 mg twice daily - lisinopril 10 mg daily - lorazepam 2 mg protocol as needed for CIWA protocol He has been followed up by Dr. Muir for medial issues. DIAGNOSES: 1. Mood disorder, not otherwise specified. 2. Rule out schizoaffective disorder. 3. Alcohol use disorder. 4. Posttraumatic stress disorder (PTSD). PLAN: Continue the current medications. Continue individual, group and milieu therapy. Watch for withdrawals.
[2018-11-12 20:26] VITALS: BP 134/91
[2018-11-12] MEDS: QUEtiapine FUMARATE 100 MG TAB PO SCH (20:27)
[2018-11-13] MEDS: OXAZEPAM 15 MG CAP PO SCH ×3 (06:26→21:47)
[2018-11-13 06:30] VITALS: BP 154/92
[2018-11-13] MEDS: ALBUTEROL SULFATE 2.5 MG/0.5 ML INH NEB SOLN INH SCH ×5 (06:36→18:33)
[2018-11-13] MEDS: SYMBICORT 160/4.5MCG INHALER 6GM INH SCH ×2 (08:39→20:00)
[2018-11-13] MEDS: LISINOPRIL 10 MG TAB PO SCH (08:40)
[2018-11-13] MEDS: FLUTICASONE PROP 0.05% NASAL SPRAY 16 GM (FLONASE) NARES SCH ×2 (08:40→20:51)
[2018-11-13] MEDS: FOLIC ACID 1 MG TAB PO SCH (08:40)
[2018-11-13] MEDS: OMEPRAZOLE 20 MG CAP PO SCH (08:40)
[2018-11-13] MEDS: levETIRAcetam 250MG TABLET (KEPPRA) PO SCH ×2 (08:40→20:51)
[2018-11-13] MEDS: ASPIRIN 81 MG ENTERIC TAB PO SCH (08:41)
[2018-11-13] MEDS: VENLAFAXINE **XR** 75MG CAPSULE PO SCH (08:41)
[2018-11-13] MEDS: MULTIVITAMINS/MINERALS THERAP 1 TAB PO SCH (08:41)
[2018-11-13] MEDS: THIAMINE 100 MG TAB PO SCH (08:41)
[2018-11-13] MEDS: NICOTINE 21MG/24HR 1 EA TRANSDERMAL TD PRN (08:44)
[2018-11-13 10:38] LABS: HEPATITIS B SURFACE ANTIGEN NEGATIVE (NEGATIVE)
[2018-11-13 11:05] LABS: HEPATITIS C VIRUS ABY INDEX 0.1 INDEX (<0.8)
[2018-11-13 11:06] LABS: HEPATITIS B CORE ANTIBODY IGM NEGATIVE (NEGATIVE)
[2018-11-13 11:07] LABS: HEPATITIS A ANTIBODY IGM NEGATIVE (NEGATIVE)
[2018-11-13 18:00] VITALS: BP 118/71
--- NOTE | 2018-11-13 19:37 | MHIPN ---
DATE: 11/13/2018 SUBJECTIVE: "I'm feeling better today, I don't have any withdrawals, I want to take withdrawal injection." OBJECTIVE: He is a 55-year-old male, , living with his , who was admitted for suicidal thoughts. He had an argument with his daughter, got upset, wanted to kill himself by hanging. He changed his mind and called the crisis line. His found him with a dog chain in his garage preparing for hanging. However, he denies it. He was intoxicated at the time. The patient has a long history of alcohol dependence. He is partially compliant with his medication. Currently, the patient is alert. However, he was drowsy yesterday. His medication was changed from lorazepam to oxazepam. MENTAL STATUS EXAMINATION: Casually dressed, cooperative, made good eye contact. Psychomotor activity is normal. Speech is spontaneous, goal-directed. Thought process: Linear, goal-directed. Mood is mildly depressed. Affect is appropriate for the mood. Thought content: Denied any delusions. Denied any suicidal or homicidal ideas. Cognition: Alert, oriented to time, place, and person. Memory: Immediate, remote, recent are good. Insight and judgment are good. VITAL SIGNS: Blood pressure 154/92, temperature 97.7, pulse 65, and respirations 12. REVIEW OF SYSTEMS: Denied chest pain or palpitations. Denied abdominal pain or dysuria. Denied shortness of breath or cough. Denied dizziness, numbness, or tingling. Gait is normal. MEDICATIONS: - oxazepam 50 mg every eight hours as needed - quetiapine 100 mg at night - venlafaxine 150 mg by mouth daily - Keppra 1500 mg twice a day for seizure disorder - lorazepam 2 mg as per [facility] protocol PLAN: Continue the current medications. Continue individual and group therapy. The patient will be discharged home with an outpatient substance abuse program referral.
[2018-11-13] MEDS: traZODone 50 MG TAB PO PRN (20:51)
[2018-11-13] MEDS: QUEtiapine FUMARATE 100 MG TAB PO SCH (20:51)
[2018-11-14 06:00] VITALS: BP 118/75
[2018-11-14] MEDS: OXAZEPAM 15 MG CAP PO SCH ×3 (06:00→23:02)
[2018-11-14 06:22] VITALS: BP 118/75
[2018-11-14] MEDS: ALBUTEROL SULFATE 2.5 MG/0.5 ML INH NEB SOLN INH SCH ×4 (08:00→18:44)
[2018-11-14] MEDS: SYMBICORT 160/4.5MCG INHALER 6GM INH SCH ×2 (09:11→20:27)
[2018-11-14] MEDS: VENLAFAXINE **XR** 75MG CAPSULE PO SCH (09:12)
[2018-11-14] MEDS: ASPIRIN 81 MG ENTERIC TAB PO SCH (09:12)
[2018-11-14] MEDS: THIAMINE 100 MG TAB PO SCH (09:12)
[2018-11-14] MEDS: OMEPRAZOLE 20 MG CAP PO SCH (09:12)
[2018-11-14] MEDS: FOLIC ACID 1 MG TAB PO SCH (09:12)
[2018-11-14] MEDS: FLUTICASONE PROP 0.05% NASAL SPRAY 16 GM (FLONASE) NARES SCH ×2 (09:12→20:27)
[2018-11-14] MEDS: LISINOPRIL 10 MG TAB PO SCH (09:12)
[2018-11-14] MEDS: MULTIVITAMINS/MINERALS THERAP 1 TAB PO SCH (09:12)
[2018-11-14] MEDS: levETIRAcetam 250MG TABLET (KEPPRA) PO SCH ×2 (09:12→20:26)
[2018-11-14] MEDS: LORazepam 2 MG TAB PO PRN ×2 (09:55→20:27)
[2018-11-14] MEDS: NICOTINE 21MG/24HR 1 EA TRANSDERMAL TD PRN (09:55)
[2018-11-14 16:13] VITALS: BP 129/82
[2018-11-14] MEDS: traZODone 50 MG TAB PO PRN (20:26)
[2018-11-14] MEDS: QUEtiapine FUMARATE 50 MG TAB PO SCH (20:26)
[2018-11-14 23:03] VITALS: BP 99/58
[2018-11-15] MEDS: OXAZEPAM 15 MG CAP PO SCH ×3 (06:44→20:44)
[2018-11-15] MEDS: ALBUTEROL SULFATE 2.5 MG/0.5 ML INH NEB SOLN INH SCH ×4 (07:14→19:31)
[2018-11-15] MEDS: LISINOPRIL 10 MG TAB PO SCH (09:00)
[2018-11-15] MEDS: levETIRAcetam 250MG TABLET (KEPPRA) PO SCH ×2 (09:06→20:16)
[2018-11-15] MEDS: THIAMINE 100 MG TAB PO SCH (09:06)
[2018-11-15] MEDS: SYMBICORT 160/4.5MCG INHALER 6GM INH SCH ×2 (09:06→20:16)
[2018-11-15] MEDS: VENLAFAXINE **XR** 75MG CAPSULE PO SCH (09:08)
[2018-11-15] MEDS: FOLIC ACID 1 MG TAB PO SCH (09:08)
[2018-11-15] MEDS: ASPIRIN 81 MG ENTERIC TAB PO SCH (09:08)
[2018-11-15] MEDS: MULTIVITAMINS/MINERALS THERAP 1 TAB PO SCH (09:08)
[2018-11-15] MEDS: OMEPRAZOLE 20 MG CAP PO SCH (09:08)
[2018-11-15] MEDS: NICOTINE 21MG/24HR 1 EA TRANSDERMAL TD PRN (09:11)
[2018-11-15] MEDS: FLUTICASONE PROP 0.05% NASAL SPRAY 16 GM (FLONASE) NARES SCH ×2 (09:25→20:16)
[2018-11-15 13:03] LABS: CK-MB VALUE MASS < 1.0 NG/ML (<3.6); CPK CREATINE PHOSPHOKINASE 55 U/L (39-308); MB/CK RELATIVE INDEX 1.82 (< OR =4); TROPONIN I < 0.02 NG/ML (< 0.10)
[2018-11-15 14:21] LABS: BLOOD UREA NITROGEN 22 MG/DL (7-18); CALCIUM LEVEL 9.5 MG/DL (8.5-10.1); CARBON DIOXIDE LEVEL 28 MEQ/L (21-32); CHLORIDE LEVEL 105 MEQ/L (98-107); CREATININE FOR GFR 0.83 MG/DL (0.70-1.30); GLOMERULAR FILTRATION RATE > 60.0 (>56); GLUCOSE, FASTING 107 MG/DL (70-100); POTASSIUM SERUM 4.9 MEQ/L (3.5-5.1); SODIUM LEVEL 139 MEQ/L (136-145)
[2018-11-15 15:57] VITALS: BP 116/85
--- NOTE | 2018-11-15 17:17 | ECGEPIP ---
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
[2018-11-15] MEDS: QUEtiapine FUMARATE 50 MG TAB PO SCH (20:16)
[2018-11-15] MEDS: traZODone 50 MG TAB PO PRN (20:16)
[2018-11-16] MEDS: OXAZEPAM 15 MG CAP PO SCH ×3 (06:00→21:06)
[2018-11-16 06:29] VITALS: BP 102/62
[2018-11-16] MEDS: ALBUTEROL SULFATE 2.5 MG/0.5 ML INH NEB SOLN INH SCH ×3 (06:47→15:30)
[2018-11-16] MEDS: SYMBICORT 160/4.5MCG INHALER 6GM INH SCH ×2 (08:00→20:03)
[2018-11-16] MEDS: FLUTICASONE PROP 0.05% NASAL SPRAY 16 GM (FLONASE) NARES SCH ×2 (08:29→20:03)
[2018-11-16] MEDS: VENLAFAXINE **XR** 75MG CAPSULE PO SCH (08:30)
[2018-11-16] MEDS: NICOTINE 21MG/24HR 1 EA TRANSDERMAL TD PRN (08:30)
[2018-11-16] MEDS: levETIRAcetam 250MG TABLET (KEPPRA) PO SCH ×2 (08:30→20:03)
[2018-11-16] MEDS: MULTIVITAMINS/MINERALS THERAP 1 TAB PO SCH (08:31)
[2018-11-16] MEDS: OMEPRAZOLE 20 MG CAP PO SCH (08:31)
[2018-11-16] MEDS: FOLIC ACID 1 MG TAB PO SCH (08:31)
[2018-11-16] MEDS: ASPIRIN 81 MG ENTERIC TAB PO SCH (08:31)
[2018-11-16] MEDS: LISINOPRIL 10 MG TAB PO SCH (08:32)
[2018-11-16] MEDS: THIAMINE 100 MG TAB PO SCH (08:32)
--- NOTE | 2018-11-16 16:34 | MHIPN ---
DATE: 11/14/2018 SUBJECTIVE: "I am feeling fine, I have no tremors. I want to be on Vitriol injection instead of naltrexone orally. OBJECTIVE: He is a 55-year-old male, , living with his , who was admitted for suicidal thoughts. He had an argument with his daughter, got upset and wanted to kill himself by hanging. He changed his mind and called the crisis line. His found him in a dark room in his garage preparing for hanging; however, he denies that he wanted to hang himself. The patient was intoxicated at the time. He has a long history of alcohol dependence. He is partially compliant with his medication. Currently, the patient is alert, oriented to time, place and person. MENTAL STATUS EXAMINATION: Casually dressed, cooperative. Made good eye contact. Psychomotor activity is normal. Speech is spontaneous, goal directed. Thought process is linear, goal directed. Mood is mildly anxious. Affect is appropriate for the mood. Thought content: Denies any delusions. Denies any suicidal or homicidal ideas. Cognition: Alert and oriented to time, place and person. Memory for immediate, remote and recent are good. REVIEW OF SYSTEMS: Denies chest pain, palpitations. Denies cough or shortness of breath. Denies abdominal pain, dysuria. Denies numbness or tingling or dizziness. Gait is normal. MEDICATIONS: - oxazepam 15 mg every 8 hours as needed - quetiapine 100 mg at night - venlafaxine 150 mg by mouth - Keppra 1500 mg twice a day - lorazepam 2 mg as per Clinical [place] Withdrawal Assessment (CIWA) protocol. PLAN: Increase the Seroquel to 150 mg at night as the patient complains of mood swings. Continue the rest of the medications. He will need either inpatient or outpatient rehabilitation treatment.
[2018-11-16 16:40] VITALS: BP 122/80
[2018-11-16] MEDS: QUEtiapine FUMARATE 50 MG TAB PO SCH (20:03)
[2018-11-16] MEDS: traZODone 50 MG TAB PO PRN (20:05)
[2018-11-17] MEDS: OXAZEPAM 15 MG CAP PO SCH (05:19)
[2018-11-17 07:02] VITALS: BP 135/73
[2018-11-17] MEDS: SYMBICORT 160/4.5MCG INHALER 6GM INH SCH (07:49)
[2018-11-17] MEDS: ALBUTEROL SULFATE 2.5 MG/0.5 ML INH NEB SOLN INH SCH ×2 (08:00→11:40)
--- NOTE | 2018-11-17 08:03 | MHIPN ---
DATE: 11/16/2018 SUBJECTIVE: I have stopped the lorazepam and I am feeling good. OBJECTIVE: This is a 55-year-old male, living with his . He was admitted because of suicidal thoughts. He had an argument with his daughter, got upset and wanted to kill himself by hanging. He changed his mind and called the crisis line. His found him in the garage preparing to hang himself. The patient has history of alcohol dependence and he was intoxicated. Currently patient is improving. His sleep and appetite are good. His benzodiazepines have been weaned off. MENTAL STATUS EXAM: Causally dressed, cooperative, made good eye contact. Psychomotor activity is normal. Speech is spontaneous and goal directed. Thought process is linear and goal directed. Mood is mildly depressed. Affect is appropriate for the mood. Thought content, denies any delusions. Denied any suicidal or homicidal ideations. Cognition alert and oriented to time, place and person. Memory, immediate and remote are good. Insight and judgment are fair. VITAL SIGNS: Temperature 98.6, pulse 73, respiratory rate 16, blood pressure 102/62. REVIEW OF SYSTEMS: Denies chest pain, palpitation, denied abdominal pain and dysuria. Denied cough but shortness of breath. Denied dizziness numbness and tingling. Gait is normal. CURRENT MEDICATIONS: Quetiapine 150 mg at night. Patient refused his Serax today, venlafaxine 150 mg once daily. LABS: CBC were within normal limits. AST and ALT are improving. Patient complained of chest pain. Troponin I was done and it was less than 0.92. His labs ethyl alcohol at the time of his admission was 0.279. DIAGNOSIS: Mood disorder, not specific, rule out schizoaffective disorder, alcohol use disorder, PTSD. PLAN: Continue current medication. Continue individual, group and milieu therapy. Coordination of his care was done with social work lecturer and nursing staff.
[2018-11-17] MEDS: VENLAFAXINE **XR** 75MG CAPSULE PO SCH (08:15)
[2018-11-17] MEDS: MULTIVITAMINS/MINERALS THERAP 1 TAB PO SCH (08:15)
[2018-11-17] MEDS: ASPIRIN 81 MG ENTERIC TAB PO SCH (08:15)
[2018-11-17] MEDS: FLUTICASONE PROP 0.05% NASAL SPRAY 16 GM (FLONASE) NARES SCH (08:15)
[2018-11-17] MEDS: THIAMINE 100 MG TAB PO SCH (08:15)
[2018-11-17] MEDS: FOLIC ACID 1 MG TAB PO SCH (08:15)
[2018-11-17] MEDS: OMEPRAZOLE 20 MG CAP PO SCH (08:15)
[2018-11-17] MEDS: levETIRAcetam 250MG TABLET (KEPPRA) PO SCH (08:15)
[2018-11-17 08:17] VITALS: BP 110/78
[2018-11-17] MEDS: LISINOPRIL 10 MG TAB PO SCH (08:17)
[2018-11-17] MEDS: NICOTINE 21MG/24HR 1 EA TRANSDERMAL TD PRN (08:20)
[2018-11-17] MEDS ORDERED: VIVI380I IM (11:01)
[2018-11-17] MEDS ORDERED: VENL150C43 PO (11:01)
[2018-11-17] MEDS ORDERED: NICO21PAT TD (11:02)
--- NOTE | 2018-11-17 11:03 | MHDSPDOC ---
[facility] Discharge Summary Discharge Summary DATE OF ADMISSION: Nov 10, 2018 at 21:27 DATE OF DISCHARGE: 11/17/18 Date of Service: 11/17/2018 Diagnoses Unspecified depressive disorder. Rule out schizoaffective versus substance induced. Alcohol use disorder, severe. PTSD, chronic. 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 He had been brought in after his became concerned. He was initially seeing in the ER by this provider where he reported that he had little connection to outpatient Psychiatry. His primary care had been managing the majority of his medications. He reported he suffered from severe alcohol problems, but was interested in treatment and additionally in Vivitrol. He was admitted to the inpatient unit. Consultants Involved Hospitalist/PCP screening Treatment and Progress On The Unit The patient was admitted to the unit and subsequently resumed on his home medications as well as placed on a alcohol withdrawal protocol. He was titrated up to 150 mg of Effexor and 150 mg of quetiapine at night with positive effects. After he had detoxed from his alcohol, he had become much improved, able to go to groups social and had requested to go. He did not meet involuntary criteria as he was denying any suicidal or homicidal ideation for significant portion of his admission. He had been free of any signs of major mental health problems and was able to attend to his needs on the unit and declined further voluntary admission. Thus, he was discharged in good edith. He was provided a Vivitrol injection as he had tried naltrexone with positive results in the past, but noted that his non-compliance as an outpatient made it difficult to fully benefit. Discharge Assessment A 53-year-old man with a history of severe alcohol problems and mood issues, he reported history of schizoaffective disorder, presents severely depressed and reportedly suicidal. He make significant progress after detoxing from alcohol suggesting a likely substance-induced component with his mood disorder. His overall diagnosis is unclear as his significant alcohol use could complicate the picture and further neuropsychological testing could be helpful. Mental Status Examination General: Well dressed with good hygiene Speech: Spontaneous and fluid Thought processes: Linear and logical MSK: Smooth and coordinated gait, no signs of tremors or involuntary orofacial movements Thought content: Future orientated Abstract reasoning, and computation: Intact Description of associations: Intact Description of abnormal or psychotic thoughts: Denies any suicidal or homicidal ideation. Denies any auditory or visual hallucinations. Does not appear to be responding to internal stimuli. Does not appear to be endorsing any bizarre or paranoid ideation. Judgment: fair Insight: fair Orientation: Alert and orientated 3 Cognition: Grossly normal Recent and remote memory: Intact Attention span and concentration: Intact Fund of knowledge: Adequate Mood: "okay" Affect: Euthymic with a full range Follow Up The social work team worked during the predischarge meeting in order to evaluate for further issues of lethality address them fully before discharge. They worked on safety planning with the patient's family members in order to ensure that the patient will have a safe and effective discharge. Time Spent The amount of time spent in the coordination of care for this patient was approximately 20 minutes. Friday Vital Signs/I&Os Vital Signs Date Time Temp Pulse Resp B/P (MAP) Pulse Ox O2 Delivery O2 Flow Rate FiO2 11/17/18 08:17 110/78 11/17/18 07:02 97.3 66 14 11/11/18 14:31 99 Medications Scheduled Aspirin (Aspir 81) 81 Mg Tablet.dr, 81 MG PO DAILY, (Reported) Cyanocobalamin (Vitamin B-12) (B-12) 1,000 Mcg Tablet, 1,000 MCG PO DAILY, (Reported) Lisinopril (Lisinopril) 20 Mg Tablet, 20 MG PO DAILY, (Reported) Naltrexone Microspheres (Vivitrol) 380 Mg Elsi.er.rec, 380 MG IM Q30D for alcohol for 30 Days, #380 Omeprazole (Omeprazole) 20 Mg Capsule.dr, 20 MG PO DAILY, (Reported) Venlafaxine HCl (Venlafaxine HCl ER) 150 Mg Cap.er.24h, 1 CAP PO DAILY for mood for 7 Days, #7 Scheduled PRN Nicotine (Nicotine Patch) 21 Mg Patch.td24, 1 PATCH TD DAILY PRN for NICOTIN WITHDRAWL for 30 Days, #30 Allergies Coded Allergies: Penicillins (Verified Allergy, Unknown, 11/10/18) diphenhydramine (Verified Allergy, Unknown, 11/10/18) hydrocodone (Verified Allergy, Unknown, 11/10/18) latex (Verified Allergy, Unknown, 11/10/18) phenytoin (Verified Allergy, Unknown, 11/10/18) primidone (Verified Allergy, Unknown, 11/10/18) JOEL CABRERA DO Nov 17, 2018 11:03
[2018-11-17] MEDS ORDERED: FLUBLOK(EGG FREE)(QUAD)INFLUENZA VACC 0.5ML SYRINGE (90682)18YRS&OLDER IM ONE (12:00)
== END 2018-11-17 13:35 | disposition home or self-care (01) | DRG 881 ==
LOC: M ED 23:56 → M ED INP 11-10 21:27 → M PSY 11-10 23:19
PROVIDERS: ADMIT Psychiatry & Neurology Addiction Medicine; ATTEND Psychiatry & Neurology Addiction Medicine
DX: F32.9 Major depressive disorder, single episode, unspecified (principal); G40.89 Other seizures; F10.20 Alcohol dependence, uncomplicated; F43.12 Post-traumatic stress disorder, chronic; F25.9 Schizoaffective disorder, unspecified; Z79.899 Other long term (current) drug therapy; Z88.0 Allergy status to penicillin; Z91.040 Latex allergy status; Z88.8 Allergy status to other drugs, medicaments and biological substances; M19.90 Unspecified osteoarthritis, unspecified site; J43.9 Emphysema, unspecified; I10 Essential (primary) hypertension; Z62.810 Personal history of physical and sexual abuse in childhood; K21.9 Gastro-esophageal reflux disease without esophagitis

== ENCOUNTER → 2018-11-27 | Outpatient (CLI) | payer MEDICARE ==
[~2018-11-27] MED LIST changes: +ASPI81TA85 PO; +B-12100021 PO; +LISI-538 PO; +OMEP-218 PO; +VENL150C43; +VENL150C43 PO; +VIVI380I IM
== END ==
LOC: M OUTALCOH 08:02
PROVIDERS: ATTEND Psychiatry & Neurology Psychiatry
DX: F10.20 Alcohol dependence, uncomplicated (principal)

== ENCOUNTER 2018-12-10 09:00 | Outpatient (RCR) | payer MEDICARE | END 2018-12-31 | LOC: M OUTALCOH 09:00 | PROVIDERS: ATTEND Psychiatry & Neurology Psychiatry | DX: F10.20 Alcohol dependence, uncomplicated (principal); F17.200 Nicotine dependence, unspecified, uncomplicated ==

== ENCOUNTER 2019-01-05 14:40 | Emergency (ER) | payer MEDICARE ==
[~2019-01-05] VITALS: Ht 177.8 cm; Wt 72.4 kg
[2019-01-05 15:58] LABS: HEMATOCRIT 43.7 % (42.0-52.0); HEMOGLOBIN 14.5 g/dl (13.5-17.5); RED BLOOD COUNT 4.52 10^6/uL (4.30-6.10); WHITE BLOOD COUNT 7.8 10^3/uL (4.0-10.0)
[2019-01-05 15:59] LABS: MEAN CORPUSCULAR HEMOGLOBIN 32.1 pg (27.0-33.0); MEAN CORPUSCULAR HGB CONC 33.2 g/dl (32.0-36.5); MEAN CORPUSCULAR VOLUME 96.7 fl (80.0-96.0); PLATELET COUNT, AUTOMATED 203 10^3/uL (150-450)
[2019-01-05] MEDS ORDERED: OXAZEPAM 15 MG CAP PO ONE (16:00)
[2019-01-05 16:27] LABS: AMPHETAMINES LEVEL URINE NEGATIVE (NEGATIVE); BARBITURATES URINE NEGATIVE (NEGATIVE); BENZODIAZEPINES URINE NEGATIVE (NEGATIVE); CANNABINOIDS URINE NEGATIVE (NEGATIVE); COCAINE METABOLITE URINE NEGATIVE (NEGATIVE); METHADONE URINE NEGATIVE (NEGATIVE); OPIATES URINE NEGATIVE (NEGATIVE); PHENCYCLIDINE URINE NEGATIVE (NEGATIVE)
[2019-01-05 16:47] LABS: ACETAMINOPHEN LEVEL < 2.0 UG/ML (10.0-30.0); ALBUMIN 4.4 GM/DL (3.2-5.2); ALT/SGPT 179 U/L (12-78); BILIRUBIN,DIRECT 0.1 MG/DL (0.0-0.2); BILIRUBIN,TOTAL 0.4 MG/DL (0.2-1.0); BLOOD UREA NITROGEN 6 MG/DL (7-18); CALCIUM LEVEL 9.1 MG/DL (8.5-10.1); CARBON DIOXIDE LEVEL 28 MEQ/L (21-32); CHLORIDE LEVEL 104 MEQ/L (98-107); CREATININE FOR GFR 0.79 MG/DL (0.70-1.30); GLOMERULAR FILTRATION RATE > 60.0 (>56); GLUCOSE, FASTING 104 MG/DL (70-100); POTASSIUM SERUM 4.3 MEQ/L (3.5-5.1); SODIUM LEVEL 138 MEQ/L (136-145); THYROID STIMULATING HORMONE 0.501 uIU/ML (0.358-3.740); TOTAL PROTEIN 8.2 GM/DL (6.4-8.2)
[2019-01-05] MEDS ORDERED: THIAMINE 100 MG TAB PO SCH (21:00)
[2019-01-06] MEDS ORDERED: OXAZEPAM 15 MG CAP PO ONE
[2019-01-06] MEDS ORDERED: LORazepam 2 MG TAB PO PRN
[2019-01-06] MEDS ORDERED: LORazepam 2 MG/ML VIAL (J2060) IM STA (00:03)
[2019-01-06 02:13] VITALS: BP 151/94
[2019-01-06] MEDS ORDERED: FOLIC ACID 1 MG TAB PO SCH (09:00)
[2019-01-06] MEDS ORDERED: MULTIVITAMINS/MINERALS THERAP 1 TAB PO SCH (09:00)
== END 2019-01-06 02:16 | disposition home or self-care (01) ==
LOC: M ED 14:40
DX: F10.929 Alcohol use, unspecified with intoxication, unspecified (principal); F19.10 Other psychoactive substance abuse, uncomplicated; I10 Essential (primary) hypertension; J45.909 Unspecified asthma, uncomplicated; G47.33 Obstructive sleep apnea (adult) (pediatric); E78.5 Hyperlipidemia, unspecified; F20.9 Schizophrenia, unspecified; Z88.0 Allergy status to penicillin; Z88.5 Allergy status to narcotic agent; Z88.8 Allergy status to other drugs, medicaments and biological substances; Z91.040 Latex allergy status; Z79.899 Other long term (current) drug therapy
CPT/HCPCS: 80048; 80076; 80307; 84443; 85027; 96372; 99284; G0480; J2060

== ENCOUNTER 2019-03-26 18:08 | Emergency (ER) | payer MEDICARE ==
[~2019-03-26] VITALS: Ht 177.8 cm; Wt 76.2 kg
[2019-03-26] MEDS ORDERED: LEVE10003 (21:10)
[2019-03-26] MEDS ORDERED: TRAZ-252 (21:10)
[2019-03-26] MEDS ORDERED: SERO1TAB3 PO (21:10)
[2019-03-26 21:56] VITALS: BP 133/74
== END 2019-03-26 21:57 | disposition home or self-care (01) ==
LOC: M ED 18:08
DX: F43.20 Adjustment disorder, unspecified (principal); I10 Essential (primary) hypertension; F33.9 Major depressive disorder, recurrent, unspecified; G40.909 Epilepsy, unspecified, not intractable, without status epilepticus; F10.10 Alcohol abuse, uncomplicated; Z79.899 Other long term (current) drug therapy; Z79.82 Long term (current) use of aspirin; Z88.0 Allergy status to penicillin; Z88.5 Allergy status to narcotic agent; Z88.8 Allergy status to other drugs, medicaments and biological substances; Z91.040 Latex allergy status; F17.210 Nicotine dependence, cigarettes, uncomplicated

== ENCOUNTER 2019-07-20 01:25 | Emergency (ER) | payer MEDICARE ==
[~2019-07-20] VITALS: Ht 175.3 cm; Wt 80.9 kg
[~2019-07-20 01:25] MED LIST changes: +LEVE10003; +SERO1TAB3 PO; +TRAZ-252
[2019-07-20 01:42] VITALS: BP 145/77
== END 2019-07-20 02:40 | disposition home or self-care (01) ==
LOC: M ED 01:25
DX: F32.9 Major depressive disorder, single episode, unspecified (principal); I10 Essential (primary) hypertension; J44.9 Chronic obstructive pulmonary disease, unspecified; F41.9 Anxiety disorder, unspecified; F10.10 Alcohol abuse, uncomplicated; F17.200 Nicotine dependence, unspecified, uncomplicated; Z88.0 Allergy status to penicillin; Z88.8 Allergy status to other drugs, medicaments and biological substances; Z88.5 Allergy status to narcotic agent; Z91.040 Latex allergy status; Z79.899 Other long term (current) drug therapy; Z79.82 Long term (current) use of aspirin

== ENCOUNTER 2019-09-06 19:13 | Emergency (ER) | payer MEDICARE ==
[~2019-09-06] VITALS: Ht 177.8 cm; Wt 75.0 kg
[~2019-09-06 19:13] MED LIST changes: -AMLO10TA5 PO; +AMLO1TAB25 PO; -ASPI81TA85 PO; +ASPI81TA86 PO
[2019-09-06] MEDS ORDERED: DIVA250T67 (19:34)
[2019-09-06] MEDS ORDERED: lisinopriL 20 MG TAB PO ONE (20:00)
[2019-09-06] MEDS ORDERED: FOLIC ACID 1 MG TAB PO SCH (20:00)
[2019-09-06] MEDS ORDERED: DIVALPROEX 250 MG TAB PO ONE (20:00)
[2019-09-06] MEDS ORDERED: OXAZEPAM 15 MG CAP PO ONE (20:00)
[2019-09-06] MEDS ORDERED: MULTIVITAMINS/MINERALS THERAP 1 TAB PO SCH (20:00)
[2019-09-06] MEDS ORDERED: LORazepam 2 MG TAB PO PRN (20:00)
[2019-09-06] MEDS ORDERED: THIAMINE 100 MG TAB PO SCH (21:00)
[2019-09-06] MEDS ORDERED: cloNIDine 0.1 MG TAB PO ONE (21:45)
[2019-09-06 22:07] VITALS: BP 169/100
[2019-09-06 22:08] VITALS: BP 169/100
== END 2019-09-06 23:14 | disposition home or self-care (01) ==
LOC: M ED 19:13
DX: F10.129 Alcohol abuse with intoxication, unspecified (principal); Y90.1 Blood alcohol level of 20-39 mg/100 ml; G40.909 Epilepsy, unspecified, not intractable, without status epilepticus; Z79.899 Other long term (current) drug therapy; Z79.82 Long term (current) use of aspirin; Z88.0 Allergy status to penicillin; Z88.5 Allergy status to narcotic agent; Z88.8 Allergy status to other drugs, medicaments and biological substances; Z91.040 Latex allergy status; F17.210 Nicotine dependence, cigarettes, uncomplicated

== ENCOUNTER 2019-11-04 16:12 | Emergency (ER) | payer MEDICARE ==
[~2019-11-04] VITALS: Ht 177.8 cm; Wt 81.8 kg
[~2019-11-04 16:12] MED LIST changes: +DIVA250T67
[2019-11-04] MEDS ORDERED: OXAZEPAM 15 MG CAP PO ONE (16:30)
[2019-11-04] MEDS ORDERED: FOLI1TAB11 PO (16:31)
[2019-11-04] MEDS ORDERED: lisinopriL 10 MG TAB PO ONE ×2 (16:45→17:15)
[2019-11-04 17:31] VITALS: BP 165/105
[2019-11-04 18:17] VITALS: BP 143/80
== END 2019-11-04 18:52 | disposition home or self-care (01) ==
LOC: M ED 16:12
DX: F10.10 Alcohol abuse, uncomplicated (principal); F31.9 Bipolar disorder, unspecified; Z79.899 Other long term (current) drug therapy; Z79.82 Long term (current) use of aspirin; Z88.0 Allergy status to penicillin; Z88.8 Allergy status to other drugs, medicaments and biological substances; Z88.5 Allergy status to narcotic agent; Z91.040 Latex allergy status

== ENCOUNTER 2020-02-08 19:16 | Inpatient (IN) | payer MEDICARE ==
[~2020-02-08] VITALS: Ht 177.8 cm; Wt 78.3 kg
[~2020-02-08 19:16] MED LIST changes: +RISP-8 PO; -RISP1TAB3 PO
[2020-02-08] MEDS ORDERED: OXAZEPAM 15 MG CAP PO ONE (20:30)
[2020-02-08] MEDS ORDERED: SERT50TA29 PO (20:50)
[2020-02-08] MEDS ORDERED: QUET100T2 PO (20:50)
[2020-02-08] MEDS ORDERED: ASPI81TA26 PO (20:50)
[2020-02-08] MEDS ORDERED: traZODone 50 MG TAB PO PRN (21:30)
[2020-02-08] MEDS ORDERED: MAALOX 30 ML SUSP *UDC PO PRN (21:30)
[2020-02-08] MEDS ORDERED: LORazepam 2 MG TAB PO PRN (21:30)
[2020-02-08] MEDS ORDERED: MOM 30ML SUSPENSION UDC PO PRN (21:30)
[2020-02-08] MEDS ORDERED: ACETAMINOPHEN TAB 650MG DOSE (2X325MG) PO PRN (21:30)
[2020-02-08 23:32] VITALS: BP 131/90
[2020-02-09] MEDS ORDERED: FLUBLOK(EGG FREE)(QUAD)INFLUENZA VACC 0.5ML SYRINGE 18YRS & OLDER IM ONE (09:00)
[2020-02-09] MEDS ORDERED: SERTRALINE HCL 50 MG TAB PO SCH (09:00)
[2020-02-09] MEDS ORDERED: NICOTINE 21MG/24HR 1 EA TRANSDERMAL TD SCH (09:00)
[2020-02-09] MEDS ORDERED: ASPIRIN 81 MG ENTERIC TAB PO SCH (09:00)
[2020-02-09] MEDS ORDERED: lisinopriL 20 MG TAB PO SCH (09:00)
[2020-02-09] MEDS ORDERED: THIAMINE 100 MG TAB PO SCH (09:00)
[2020-02-09] MEDS ORDERED: FOLIC ACID 1 MG TAB PO SCH (09:00)
[2020-02-09] MEDS ORDERED: MULTIVITAMINS/MINERALS THERAP 1 TAB PO SCH (09:00)
[2020-02-09 09:49] VITALS: BP 138/96
[2020-02-09 09:55] VITALS: BP 138/96
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
[2020-02-09] MEDS ORDERED: VITMTA PO (12:03)
[2020-02-09] MEDS ORDERED: THIA100TA PO (12:03)
[2020-02-09] MEDS ORDERED: FOLI1TAB11 PO (12:03)
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
--- NOTE | 2020-02-09 13:37 | HPEPDOC ---
[facility] Medical History & Physical Date of Admission Feb 09, 2020 Date of Service: Feb 09, 2020 History and Physical CHIEF COMPLAINT: suicidal ideation HISTORY OF PRESENT ILLNESS: 53 yo M with a hx of hypertension, COPD, history of alcohol abuse with withdrawal symptoms (Seizures), Depression and suicidal i deation. He was seen at [facility] for alcohol intoxication and made a SI statement to a provider about shooting his dogs and himself. Hospitalist service consulted for medical screening evaluation. Patient denies any physical complaints. He denies chest pain, shortness of breath, subjective fevers or chills. He does states that his last etoh induced seizure was 1 week ago. He is compliant with his medications but continues to drink. PAST MEDICAL HISTORY: etoh use disorder seizure disorder HTN COPD Depression PAST SURGICAL HISTORY: Bilateral knee arthroscopy Lumbar fusion L4-5 Hernia repair at R inguinal area Right cervical lymph node biopsy, found to be benign SOCIAL HISTORY: heavy smoker, 2 packs per day etoh use disorder, drinks 30 pack of beer daily Lives with Denies illicits FAMILY HISTORY: Father: hx of etoh use disorder ALLERGIES: Please see below. REVIEW OF SYSTEMS: 10 point ROS completed, negative unless otherwise stated in HPI. HOME MEDICATIONS: Please see below. PHYSICAL EXAMINATION: VITAL SIGNS: please see below GENERAL APPEARANCE: alert and oriented. appears mildly anxious/tremulous HEENT: PERRLA CARDIOVASCULAR: RRR, normal S1, S2 LUNGS: CTAB ABDOMEN: soft, non tender MUSCULOSKELETAL: normal ROM, no edema. EXTREMITIES: no joint deformity NEUROLOGICAL: no focal neuro deficits PSYCHIATRIC: denies SI. Calm and cooperative LABORATORY DATA: See below. IMAGING: MICROBIOLOGY: Please see below. ASSESSMENT: 54 yo M admitted to [facility] for SI. Hospitalist consult for medical screening. . PLAN: #Transaminitis - consistent with prior labs - alcoholic hepatitis - actively drinking - in counseling #HTN - BP well controlled - conitnue lisinopril #COPD - not in exacerbation - c/w inhalers #Seizure disorder - C/w meds #ETOH disorder - mildly tremulous - declined serax, wishes to proceed with slow taper of etoh consumption - he was offered to stay in [facility] or go to detox in [place], patient declined and wished to go home. - advised to return CATHERINE to nearest ER or call 911 if experiences severe withdrawal or seizures - patient is decisional and has competence to refuse - c/w thiamine, folic acid, MVT #SI/depression: per psychiatry DVT ppx: early ambulation Vital Signs Vital Signs Date Time Temp Pulse Resp B/P (MAP) Pulse Ox O2 Delivery O2 Flow Rate FiO2 02/09/20 11:06 16 02/09/20 09:55 88 138/96 02/08/20 23:32 98.5 98 Room Air Home Medications Scheduled Aspirin (Aspirin EC) 81 Mg Tablet.dr, 81 MG PO DAILY Cyanocobalamin (Vitamin B-12) (B-12) 1,000 Mcg Tablet, 1,000 MCG PO DAILY Folic Acid (Folic Acid) 1 Mg Tablet, 1 MG PO DAILY for Vitamin Replacement Lisinopril (Lisinopril) 20 Mg Tablet, 20 MG PO DAILY Multivitamins (Thera M Plus Tablet) 1 Each Tablet, 1 TAB PO DAILY for Vitamin Replacement Quetiapine Fumarate (Quetiapine Fumarate) 100 Mg Tablet, 200 MG PO QHS Sertraline HCl (Sertraline HCl) 50 Mg Tablet, 50 MG PO DAILY Thiamine Hcl (Vitamin B-1) 100 Mg Tablet, 100 MG PO BID for Vitamin Replacement Allergies Coded Allergies: Penicillins (Verified Allergy, Mild, hives, 02/08/20) diphenhydramine (Verified Allergy, Mild, rash, 02/08/20) hydrocodone (Verified Allergy, Mild, rash, 02/08/20) latex (Verified Allergy, Mild, hives, 02/08/20) phenytoin (Verified Allergy, Mild, rash, 02/08/20) primidone (Verified Allergy, Mild, rash, 02/08/20) A-FIB/CHADSVASC A-FIB History Current/History of A-Fib/PAF?: No Current PO Anticoag Therapy: No STEVAN CONDE MD Feb 09, 2020 13:36
== END 2020-02-09 14:43 | disposition home or self-care (01) | DRG 897 ==
LOC: M ED 19:16 → M ED INP 21:27 → M PSY 23:21
PROVIDERS: ADMIT Psychiatry & Neurology Psychiatry; ATTEND Psychiatry & Neurology Psychiatry
DX: F10.24 Alcohol dependence with alcohol-induced mood disorder (principal); F32.9 Major depressive disorder, single episode, unspecified; Z79.899 Other long term (current) drug therapy; Z88.0 Allergy status to penicillin; Z91.040 Latex allergy status; Z88.8 Allergy status to other drugs, medicaments and biological substances; Z88.5 Allergy status to narcotic agent; G40.909 Epilepsy, unspecified, not intractable, without status epilepticus; J44.9 Chronic obstructive pulmonary disease, unspecified; I10 Essential (primary) hypertension; F17.200 Nicotine dependence, unspecified, uncomplicated

== ENCOUNTER 2020-02-12 10:22 | Emergency (ER) | payer MEDICARE ==
[~2020-02-12] VITALS: Ht 177.8 cm; Wt 80.5 kg
[~2020-02-12 10:22] MED LIST changes: +QUET100T2 PO; +SERT50TA29 PO; +THIA100TA PO; +VITMTA PO
[2020-02-12 15:06] VITALS: BP 136/94
[2020-02-13] MEDS ORDERED: SERT50TA29 PO (21:48)
[2020-02-13] MEDS ORDERED: B-1100TA2 PO (21:50)
[2020-02-13] MEDS ORDERED: NALT50TA4 PO (21:50)
== END 2020-02-12 15:07 | disposition home or self-care (01) ==
LOC: M ED 10:22
DX: T43.591A Poisoning by other antipsychotics and neuroleptics, accidental (unintentional), initial encounter (principal); F10.10 Alcohol abuse, uncomplicated; F31.9 Bipolar disorder, unspecified; Z91.5 Personal history of self-harm; Z88.0 Allergy status to penicillin; Z88.8 Allergy status to other drugs, medicaments and biological substances; Z88.5 Allergy status to narcotic agent; Z91.040 Latex allergy status; F17.200 Nicotine dependence, unspecified, uncomplicated; Z79.899 Other long term (current) drug therapy; Z79.82 Long term (current) use of aspirin

== ENCOUNTER 2020-02-22 15:36 | Emergency (ER) | payer MEDICARE ==
[~2020-02-22] VITALS: Ht 177.8 cm; Wt 85.5 kg
[~2020-02-22 15:36] MED LIST changes: +B-1100TA2 PO; +NALT50TA4 PO
[2020-02-22 16:00] VITALS: BP 131/84
== END 2020-02-22 17:40 | disposition home or self-care (01) ==
LOC: M ED 15:36
DX: F43.0 Acute stress reaction (principal); F10.10 Alcohol abuse, uncomplicated; I10 Essential (primary) hypertension; R56.9 Unspecified convulsions; F17.200 Nicotine dependence, unspecified, uncomplicated; Z79.82 Long term (current) use of aspirin; Z79.899 Other long term (current) drug therapy; Z88.0 Allergy status to penicillin; Z88.5 Allergy status to narcotic agent; Z88.8 Allergy status to other drugs, medicaments and biological substances; Z91.040 Latex allergy status

== ENCOUNTER 2020-09-14 07:36 | Observation (INO) | payer MEDICARE ==
[~2020-09-14] VITALS: Ht 177.8 cm; Wt 81.0 kg
[~2020-09-14 07:36] MED LIST changes: +GABA-283 PO; -GABA-845 PO; -LISI-538 PO; +LISI20TA33 PO; -LISI40TA PO; +LISI40TA4 PO
[2020-09-14] MEDS ORDERED: LORazepam 2 MG/ML VIAL IV STA (08:03)
[2020-09-14] MEDS ORDERED: levETIRAcetam INJection 1,000 MG in D5W 100 ML IV ONE (08:05)
[2020-09-14] MEDS ORDERED: MULTIVITAMIN -ADULT INJECTION 10 ML, THIAMINE INJection 100 MG, FOLIC ACID 1 MG in NS 1... IV ONE (08:10)
[2020-09-14 08:27] LABS: BASO # 0.1 10^3/uL (0.0-0.2); BASO % 1.3 % (0.0-1.0); EOS # 0.5 10^3/uL (0.0-0.5); EOS % 6.6 % (0.0-3.0); HEMATOCRIT 39.6 % (42.0-52.0); HEMOGLOBIN 13.4 g/dl (13.5-17.5); LYMPH % 26.6 % (24.0-44.0); MEAN CORPUSCULAR HEMOGLOBIN 31.5 pg (27.0-33.0); MEAN CORPUSCULAR HGB CONC 33.8 g/dl (32.0-36.5); MONO # 0.8 10^3/uL (0.0-0.8); MONO % 10.5 % (2.0-8.0); NEUTROPHILS # 4.1 10^3/uL (1.5-8.5); NEUTROPHILS % 54.5 % (36.0-66.0); PLATELET COUNT, AUTOMATED 257 10^3/uL (150-450); RED BLOOD COUNT 4.26 10^6/uL (4.30-6.10); WHITE BLOOD COUNT 7.6 10^3/uL (4.0-10.0)
[2020-09-14 08:38] LABS: INR 0.84; PROTHROMBIN TIME 11.7 SECONDS (12.5-14.3)
--- NOTE | 2020-09-14 08:47 | REP ---
INDICATION: seizure COMPARISON: None. TECHNIQUE: Portable AP view of the chest FINDINGS: Examination is limited by underpenetration, portable technique, and poor inspiratory effort which accentuate the pulmonary vasculature and interstitium. Subtle area of right infrahilar airspace disease cannot be excluded. No discrete focal consolidation, effusion, or pneumothorax. Skeletal structures appear intact. IMPRESSION: Limited examination cannot exclude right basilar airspace disease. <Electronically signed by Tim Ferrera > 09/14/20 [id number]
[2020-09-14 08:59] LABS: RSV AMPLIFICATION NEGATIVE (NEGATIVE)
[2020-09-14 09:10] LABS: ALBUMIN 4.3 GM/DL (3.2-5.2); ALT/SGPT 112 U/L (12-78); BILIRUBIN,DIRECT < 0.1 MG/DL (0.0-0.2); BILIRUBIN,TOTAL 0.2 MG/DL (0.2-1.0); BLOOD UREA NITROGEN 5 MG/DL (7-18); CALCIUM LEVEL 8.9 MG/DL (8.5-10.1); CARBON DIOXIDE LEVEL 25 MEQ/L (21-32); CHLORIDE LEVEL 103 MEQ/L (98-107); CREATININE FOR GFR 0.56 MG/DL (0.70-1.30); GLOMERULAR FILTRATION RATE > 60.0 (>56); GLUCOSE, FASTING 99 MG/DL (70-100); POTASSIUM SERUM 4.4 MEQ/L (3.5-5.1); SODIUM LEVEL 138 MEQ/L (136-145); TOTAL PROTEIN 8.1 GM/DL (6.4-8.2)
[2020-09-14] MEDS ORDERED: HYDR-3363 PO (09:42)
[2020-09-14] MEDS ORDERED: QUET50TA3 PO (09:42)
[2020-09-14] MEDS ORDERED: SILD100T PO (09:42)
[2020-09-14] MEDS ORDERED: NITR0.4S14 SL (09:42)
[2020-09-14] MEDS ORDERED: MED REC COMMENT (09:44)
[2020-09-14] MEDS ORDERED: HOME MED LIST COMPLETE! XX SCH (09:45)
[2020-09-14] MEDS ORDERED: ACETAMINOPHEN TAB 650MG DOSE (2X325MG) PO PRN (11:40)
[2020-09-14] MEDS ORDERED: MOM 30ML SUSPENSION UDC PO PRN (11:40)
[2020-09-14] MEDS ORDERED: MAALOX 30 ML SUSP *UDC PO PRN (11:40)
[2020-09-14] MEDS ORDERED: OXAZEPAM 15 MG CAP PO ONE (12:00)
[2020-09-14 12:04] LABS: AMPHETAMINES LEVEL URINE NEGATIVE (NEGATIVE); BARBITURATES URINE NEGATIVE (NEGATIVE); BENZODIAZEPINES URINE POSITIVE (NEGATIVE); CANNABINOIDS URINE NEGATIVE (NEGATIVE); COCAINE METABOLITE URINE NEGATIVE (NEGATIVE); METHADONE URINE NEGATIVE (NEGATIVE); OPIATES URINE NEGATIVE (NEGATIVE); PHENCYCLIDINE URINE NEGATIVE (NEGATIVE)
[2020-09-14] MEDS: SERTRALINE HCL 50 MG TAB PO SCH (12:09)
[2020-09-14] MEDS: QUEtiapine FUMARATE 100 MG TAB PO SCH (12:10)
[2020-09-14] MEDS: FOLIC ACID 1 MG TAB PO SCH (12:11)
[2020-09-14] MEDS: THIAMINE 100 MG TAB PO SCH ×2 (12:11→22:10)
[2020-09-14] MEDS: MULTIVITAMINS/MINERALS THERAP 1 TAB PO SCH (12:12)
[2020-09-14] MEDS: DOCUSATE SODIUM 100MG CAPSULE PO SCH ×2 (12:21→22:10)
[2020-09-14] MEDS ORDERED: NICOTINE 14 MG/24 HR TRANSDERMAL TD ONE (13:00)
[2020-09-14] MEDS ORDERED: NS 1,000 ML IV ONE (14:25)
--- NOTE | 2020-09-14 15:33 | HPEPDOC ---
General Date of Admission Sep 14, 2020 at 11:36 Date of Service: Sep 14, 2020 Attending Physician: TRELL JIM MD Chief Complaint The patient is a 55-year-old male admitted with a reason for visit of Alcohol Abuse With Intoxication, Withdrawal Seizur. History of Present Illness History of present illness: 55-year old male patient history of hypertension, COPD, history of alcohol abuse with withdrawal symptoms including seizures, depression with suicidal ideation in the past. Was brought into the emergency department by EMS as patient is alcohol intoxicated. Patient was drowsy, and could not answer any of the question. Most of the history was obtained from ED physician. Patient presented in the ENT office for an appointment but patient was alcohol intoxicated during that time and did not get the procedure he needs to get. In the ED patient did have an clonic seizure, no incontinence, which lasted about 10 minutes followed by about 5 to 10 minutes of postictal state. In the ED patient was given 1 g of Ativan, 1000 mg of Keppra and a banana bag. When I saw him in the ED patient was drowsy from the medication he got Most of the history has been taken from the prior admissions. Past medical history: Hypertension COPD History of alcohol abuse with withdrawal symptoms including seizures Depression with suicidal ideation Past surgical history: Bilateral knee arthroscopy Lumbar fusion L4-L5 Hernia repair at right inguinal area Right cervical node biopsy, found to be benign. Social history: Heavy smoker, smokes 2 packs/day Alcohol drinks heavily. Denies any illicit drug use Family History: History of EtOH use disorder REVIEW OF SYSTEMS: Could not elicit as patient was nonresponsive/drowsy PHYSICAL EXAMINATION: General: Patient was drowsy from the medication he got in the ED. Was opening eyes to vocal commands. Eyes: Conjunctiva clear, pupils equal round and reactive to light. Cardiovascular: S1, S2, normal rhythm, no murmur appreciated Respiratory: Chest is clear to auscultation bilaterally and lateral lungs Abdomen: Soft, bowel sounds positive. Extremities: No edema appreciated Central nervous system (SOLE TIER): Patient is drowsy. Pertinent Diagnostic tests: Initial vitals were stable, patient is on 3 L of nasal cannula saturating at 95% LABS: CBC: WBC 7.6, Hb 13.4, HCT 39.6, platelet 257 CMP: NA 138, K4.4, CL 103, HCO3 25, BUN 5, CR 0.56, AST 81, ALT 112, alk phos 103. Toxicology: Ethyl alcohol 0.34, positive for benzodiazepines. Imaging: Chest x-ray done on 07/15/2020: FINDINGS: Examination is limited by underpenetration, portable technique, and poor inspiratory effort which accentuate the pulmonary vasculature and interstitium. Subtle area of right infrahilar airspace disease cannot be excluded. No discrete focal consolidation, effusion, or pneumothorax. Skeletal structures appear intact. Impression: Limited examination cannot exclude right basilar airspace disease. Assessment: 55-year-old male patient with PMH HTN, COPD, alcohol abuse, with withdrawal symptoms including seizures in the past, depression with suicidal ideology in the past was brought in by EMS with alcohol intoxication, in the ED patient had an withdrawal seizure with EtOH level of 0.3. Patient is being admitted for further management and evaluation Plan: Alcohol intoxication: -Patient has an blood alcohol level of 0.34 -We will put him on CIWA protocol -We will start him on thiamine, vitamin B12 and folic acid. -Patient is on fall precaution, aspiration precaution, seizure precaution -Patient did get a dose of Ativan, Keppra, Serax in the ED -Keep him n.p.o. for now, once patient is much awake we can put him on regular diet. -Given that he is n.p.o. we will continue him on maintenance dose of IV fluids. Alcohol withdrawal seizures: -Patient has a seizure episode in the ED, witnessed, clonic type, lasted about less than 10 minutes. -He was given a dose of Keppra in the ED -We will get a head CT to rule out any intracranial bleed -We will get an EEG to rule out any baseline seizure activity. -Patient is not on any seizure medication at home. Elevated transaminases: -Patient has elevated AST and ALT [ALT more than AST] Active smoker: -We will place patient on nicotine patches COPD: -Patient is not in exacerbation. -Patient does not use any inhalers at home Hypertension: -Patient's blood pressure is well controlled -He actually is hypotensive given that he got Ativan. -We will hold his lisinopril for now. Will consider restarting it tomorrow if patient is having high blood pressures. DVT prophylaxis; -We will start patient on Lovenox 40 mg daily. Home Medications Scheduled Lisinopril (Lisinopril) 20 Mg Tablet, 20 MG PO DAILY, (Reported) Quetiapine Fumarate (Quetiapine Fumarate) 50 Mg Tablet, 100 MG PO DAILY, ( Reported) Sertraline HCl (Sertraline HCl) 50 Mg Tablet, 50 MG PO DAILY, (Reported) Scheduled PRN Hydroxyzine HCl (Hydroxyzine HCl) 25 Mg Tablet, 25 MG PO Q6H PRN for ANXIETY, (Reported) Nitroglycerin (Nitroglycerin) 0.4 Mg Tab.subl, 0.4 MG SL ASDIRECTED PRN for CHEST PAIN, (Reported) Sildenafil Citrate (Sildenafil Citrate) 100 Mg Tablet, 100 MG PO ASDIRECTED PRN for ERECTILE DYSFUNCTION, (Reported) Miscellaneous Medications [Med Rec Comment] , (Reported) LIST OBTAINED FROM PHARMACY; UNABLE TO OBTAIN INFORMATION FROM PATIENT Allergies Coded Allergies: Penicillins (Verified Allergy, Mild, hives, 02/08/20) diphenhydramine (Verified Allergy, Mild, rash, 02/08/20) hydrocodone (Verified Allergy, Mild, rash, 02/08/20) latex (Verified Allergy, Mild, hives, 02/08/20) phenytoin (Verified Allergy, Mild, rash, 02/08/20) primidone (Verified Allergy, Mild, rash, 02/08/20) A-FIB/CHADSVASC A-FIB History Current/History of A-Fib/PAF?: No Current PO Anticoag Therapy: No Vital Signs Vital Signs Date Time Temp Pulse Resp B/P (MAP) Pulse Ox O2 Delivery O2 Flow Rate FiO2 09/14/20 14:34 111 20 95 Nasal Cannula 3.0 09/14/20 14:26 94/51 (65) 09/14/20 07:36 97.7 Laboratory Data Labs 24H Laboratory Tests 2 09/14/20 08:15: Immature Granulocyte % (Auto) 0.5, Neutrophils (%) (Auto) 54.5, Lymphocytes (%) (Auto) 26.6, Monocytes (%) (Auto) 10.5H, Eosinophils (%) (Auto) 6.6H, Basophils (%) (Auto) 1.3H, Neutrophils # (Auto) 4.1, Lymphocytes # (Auto) 2.0, Monocytes # (Auto) 0.8, Eosinophils # (Auto) 0.5, Basophils # (Auto) 0.1, Nucleated Red Blood Cells % (auto) 0.0, Prothrombin Time 11.7L, Prothromb Time International Ratio 0.84, Anion Gap 10, Glomerular Filtration Rate > 60.0, Calcium Level 8.9, Total Bilirubin 0.2, Direct Bilirubin < 0.1, Aspartate Amino Transf (AST/SGOT) 81H, Alanine Aminotransferase (ALT/SGPT) 112H, Alkaline Phosphatase 103, Total Protein 8.1, Albumin 4.3, Albumin/Globulin Ratio 1.1, Ethyl Alcohol Level 0.340H, Coronavirus (COVID-19)(PCR) NEGATIVE, Influenza Type A (RT-PCR) NEGATIVE, Influenza Type B (RT-PCR) NEGATIVE, Respiratory Syncytial Virus (PCR) NEGATIVE 09/14/20 11:23: Urine Opiates Screen NEGATIVE, Urine Methadone Screen NEGATIVE, Urine Barbiturates Screen NEGATIVE, Urine Phencyclidine Screen NEGATIVE, Urine Amphetamines Screen NEGATIVE, Urine Benzodiazepines Screen POSITIVEH, Urine Cocaine Metabolite Screen NEGATIVE, Urine Cannabinoids Screen NEGATIVE CBC/BMP Laboratory Tests 09/14/20 08:15 Plan / VTE VTE Prophylaxis Ordered?: Yes GME ATTESTATION GME ATTESTATION My faculty preceptor for this patient encounter was physically present during the encounter and was fully available. All aspects of the patient interview, examination, medical decision making process, and medical care plan development were reviewed and approved by the faculty preceptor. The faculty preceptor is aware and concurs with the plan as stated in the body of this note and will attest to such by his/her cosignature. ATTENDING NOTE I, Trell Jim MD, have independently examined this patient and performed my ow n physical exam, as well as reviewed the documentation and edited where necessary. I have discussed in detail with the resident / student the findings and plan of treatment as documented by the resident / student and edited their note. I agree with their findings and treatment plan and have edited their documentation. Jak Kaye MD Sep 14, 2020 15:33 TRELL JIM MD Sep 19, 2020 14:39
[2020-09-14] MEDS: NS 1,000 ML IV SCH (15:35)
--- NOTE | 2020-09-14 16:00 | REPVR ---
PROCEDURE INFORMATION: Exam: CT Head Without Contrast Exam date and time: 09/14/2020 3:04 PM Age: 55 years old Clinical indication: Other: Seizure; Additional info: Patient had a seizure TECHNIQUE: Imaging protocol: Computed tomography of the head without contrast. Radiation optimization: All CT scans at this facility use at least one of these dose optimization techniques: automated exposure control; mA and/or kV adjustment per patient size (includes targeted exams where dose is matched to clinical indication); or iterative reconstruction. COMPARISON: CT Head without contrast 05/25/2018 11:20 PM FINDINGS: Brain: There are patchy areas of low density consistent with chronic ischemic changes and unchanged since 2019. Symmetric cerebral sulci. Cerebral ventricles: Normal appearing ventricles. Paranasal sinuses: Clear paranasal sinuses. Mastoid air cells: Clear mastoid air cells. Orbital cavity: Symmetric orbits. Bones/joints: No evidence of fracture. Soft tissues: No evidence of soft tissue swelling. IMPRESSION: No evidence of bleed. No evidence of mass effect. Electronically signed by: Daniel López On 09/14/2020 16:00:18 PM
--- NOTE | 2020-09-14 16:51 | ECGEPIP ---
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
[2020-09-15] VITALS (9 sets, daily range): BP systolic 118–137; BP diastolic 70–83
[2020-09-15] MEDS: NS 1,000 ML IV SCH (00:08)
[2020-09-15] MEDS: LORazepam 2 MG TAB PO PRN ×2 (01:43→20:56)
[2020-09-15 05:44] LABS: BASO # 0.1 10^3/uL (0.0-0.2); BASO % 1.3 % (0.0-1.0); EOS # 0.3 10^3/uL (0.0-0.5); EOS % 4.2 % (0.0-3.0); HEMATOCRIT 35.1 % (42.0-52.0); HEMOGLOBIN 11.5 g/dl (13.5-17.5); LYMPH # 1.3 10^3/uL (1.5-5.0); LYMPH % 16.9 % (24.0-44.0); MEAN CORPUSCULAR HEMOGLOBIN 31.2 pg (27.0-33.0); MEAN CORPUSCULAR HGB CONC 32.8 g/dl (32.0-36.5); MEAN CORPUSCULAR VOLUME 95.1 fl (80.0-96.0); MONO % 12.7 % (2.0-8.0); NEUTROPHILS # 4.9 10^3/uL (1.5-8.5); NEUTROPHILS % 64.5 % (36.0-66.0); PLATELET COUNT, AUTOMATED 207 10^3/uL (150-450); RED BLOOD COUNT 3.69 10^6/uL (4.30-6.10); WHITE BLOOD COUNT 7.6 10^3/uL (4.0-10.0)
[2020-09-15 06:14] LABS: ALBUMIN 3.5 GM/DL (3.2-5.2); ALT/SGPT 85 U/L (12-78); BILIRUBIN,TOTAL 0.7 MG/DL (0.2-1.0); BLOOD UREA NITROGEN 8 MG/DL (7-18); CALCIUM LEVEL 7.7 MG/DL (8.5-10.1); CARBON DIOXIDE LEVEL 26 MEQ/L (21-32); CHLORIDE LEVEL 106 MEQ/L (98-107); CREATININE FOR GFR 0.55 MG/DL (0.70-1.30); GLOMERULAR FILTRATION RATE > 60.0 (>56); GLUCOSE, FASTING 64 MG/DL (70-100); MAGNESIUM LEVEL 1.8 MG/DL (1.8-2.4); POTASSIUM SERUM 4.3 MEQ/L (3.5-5.1); SODIUM LEVEL 139 MEQ/L (136-145); TOTAL PROTEIN 6.4 GM/DL (6.4-8.2)
[2020-09-15] MEDS: FOLIC ACID 1 MG TAB PO SCH (09:11)
[2020-09-15] MEDS: SERTRALINE HCL 50 MG TAB PO SCH (09:11)
[2020-09-15] MEDS: MULTIVITAMINS/MINERALS THERAP 1 TAB PO SCH (09:11)
[2020-09-15] MEDS: ENOXAPARIN 40MG/0.4ML SYRINGE (J1650 PER 10MG) SC SCH (09:11)
[2020-09-15] MEDS: DOCUSATE SODIUM 100MG CAPSULE PO SCH ×2 (09:11→20:56)
[2020-09-15] MEDS: THIAMINE 100 MG TAB PO SCH ×2 (09:11→20:56)
[2020-09-15] MEDS: QUEtiapine FUMARATE 100 MG TAB PO SCH (10:01)
--- NOTE | 2020-09-15 18:28 | IPNPDOC ---
Text Note Date of Service The patient was seen on 09/15/20. NOTE Subjective: Patient was seen at bedside. Patient is alert oriented x3 this morning. He reports having pain in his right upper quadrant about 3/10, epigastric region about 5/10, left upper quadrant and left chest about 8 / 10. His right upper quadrant can be due to his alcohol and elevated transaminitis from it, epigastric pain can be because of his gastritis from low alcohol intake, likely his left upper quadrant to left chest pain due to either a rib fracture because of his fall. Patient reports he had a fall and since then he is having this pain. We will get a chest x-ray to rule out any rib fractures. On further questioning he reports he has a history of seizure disorder and takes Keppra at home per the reconciled medication does not have Keppra. Nurse reported that he had hallucinations overnight and was given Ativan . Today morning when I went to see him patient is very shaky and having tremors in his hands. Objective: General: Patient is alert oriented x3. Able to answer most of the questions. Cardiac: S1 and S2 normal, regular rate and rhythm, no murmurs appreciated. Respiratory: Clear to auscultation bilaterally, no wheezes or rhonchi appr eciated. Patient reports having pain on palpation on the right side over the ribs. He reports to have a fall in the past and is having pain on palpation. Abdomen: Reports having right upper quadrant pain and epigastric pain on palpation. Extremities: No pedal edema appreciated SPORTS JOURNALIST: Patient is alert oriented x3, patient has tremors in his bilateral upper limbs. Labs: Vitals are stable CBC: WBC 7.8, Hb 11.5, HCT 35.1, platelets 0.7, BMP: NA 139, K4.3, CL 106, HCO3 26, BUN 8, creatinine 0.5, glucose 69 MG 1.8, AST 64 [trended down from 81], ALT 85 [trended down from 112] Imaging: Imaging: Chest x-ray done on 09/14/2020: FINDINGS: Examination is limited by underpenetration, portable technique, and poor inspiratory effort which accentuate the pulmonary vasculature and interstitium. Subtle area of right infrahilar airspace disease cannot be excluded. No discrete focal consolidation, effusion, or pneumothorax. Skeletal structures appear intact. Impression: Limited examination cannot exclude right basilar airspace disease. Head CT without contrast done on 09/14/2020: Reported as: No evidence of bleed. No evidence of mass-effect. Assessment: Assessment: 55-year-old male patient with PMH HTN, COPD, alcohol abuse, with withdrawal symptoms including seizures in the past, depression with suicidal ideology in the past was brought in by EMS with alcohol intoxication, in the ED patient had an withdrawal seizure with EtOH level of 0.3. Patient is being admitted for further management and evaluation. Plan: Alcohol intoxication: -Patient has an blood alcohol level was 0.34 on admission -We will continue CIWA protocol, thiamine, vitamin B12, folic acid. -Patient does have bilateral tremors, patient is still on fall precaution, aspiration precaution, seizure precaution given -Patient is on regular diet as he is alert oriented x3. -PT OT were ordered for therapeutic purposes Alcohol withdrawal seizures: -Patient has a seizure episode in the ED, witnessed, clonic type, lasted about less than 10 minutes. -He was given a dose of Keppra in the ED -Patient had a head CT which was negative for bleed, EEG was ordered for his seizures- Pending -Patient reports he uses Keppra daily at home but the reconciled medication did not help Keppra. Based on the EEG if needed we will start patient on Keppra. Abdominal pain: -Patient's right quadrant abdominal pain likely due to his transaminitis from alcoholism -Patient's epigastric pain likely due to gastritis. Will start patient on PPI -Patient left-sided chest pain is likely due to rib fractures he sustained when he had a fall. Chest x-ray was ordered for tomorrow morning. Elevated transaminases: Patient AST and ALT are trending down. AST 64, ALT 85 Active smoker: -We will place patient on nicotine patches COPD: -Patient is not in exacerbation. -Patient does not use any inhalers at home Hypertension: -Patient is on lisinopril at home. -We will continue lisinopril. Depression: -We will continue the home medication DVT prophylaxis; -We will start patient on Lovenox 40 mg daily. VS,Fishbone, I+O VS, Fishbone, I+O Laboratory Tests 09/15/20 04:46 Vital Signs Date Time Temp Pulse Resp B/P (MAP) Pulse Ox O2 Delivery O2 Flow Rate FiO2 09/15/20 16:00 99.0 85 16 118/70 (86) 95 Room Air 09/15/20 12:00 2.0 I&O- Last 24 Hours up to 6 AM 09/15/20 06:00 Intake Total 1370 ml Balance 1370 ml GME ATTESTATION GME ATTESTATION My faculty preceptor for this patient encounter was physically present during the encounter and was fully available. All aspects of the patient interview, exa mination, medical decision making process, and medical care plan development were reviewed and approved by the faculty preceptor. The faculty preceptor is aware and concurs with the plan as stated in the body of this note and will attest to such by his/her cosignature. ATTENDING NOTE I, Trell Pop MD, have independently examined this patient and performed my own physical exam, as well as reviewed the documentation and edited where necessary. I have discussed in detail with the resident / student the findings and plan of treatment as documented by the resident / student and edited their note. I agree with their findings and treatment plan and have edited their documentation. Jak Kaye MD Sep 15, 2020 18:28 TRELL POP MD Sep 19, 2020 14:48
[2020-09-16] VITALS (10 sets, daily range): BP systolic 98–149; BP diastolic 54–99
[2020-09-16] MEDS: LORazepam 2 MG TAB PO PRN ×2 (00:25→09:51)
[2020-09-16] MEDS: NS 1,000 ML IV SCH ×3 (01:00→18:09)
[2020-09-16 05:17] LABS: BASO # 0.1 10^3/uL (0.0-0.2); BASO % 1.5 % (0.0-1.0); EOS # 0.5 10^3/uL (0.0-0.5); EOS % 10.2 % (0.0-3.0); HEMATOCRIT 34.5 % (42.0-52.0); HEMOGLOBIN 11.6 g/dl (13.5-17.5); LYMPH # 1.4 10^3/uL (1.5-5.0); LYMPH % 26.6 % (24.0-44.0); MEAN CORPUSCULAR HEMOGLOBIN 31.1 pg (27.0-33.0); MEAN CORPUSCULAR HGB CONC 33.6 g/dl (32.0-36.5); MEAN CORPUSCULAR VOLUME 92.5 fl (80.0-96.0); MONO # 0.8 10^3/uL (0.0-0.8); MONO % 14.5 % (2.0-8.0); NEUTROPHILS # 2.4 10^3/uL (1.5-8.5); NEUTROPHILS % 46.8 % (36.0-66.0); PLATELET COUNT, AUTOMATED 200 10^3/uL (150-450); RED BLOOD COUNT 3.73 10^6/uL (4.30-6.10); WHITE BLOOD COUNT 5.2 10^3/uL (4.0-10.0)
[2020-09-16 05:57] LABS: ALBUMIN 3.1 GM/DL (3.2-5.2); ALT/SGPT 63 U/L (12-78); BILIRUBIN,TOTAL 0.2 MG/DL (0.2-1.0); BLOOD UREA NITROGEN 10 MG/DL (7-18); CALCIUM LEVEL 8.5 MG/DL (8.5-10.1); CARBON DIOXIDE LEVEL 30 MEQ/L (21-32); CHLORIDE LEVEL 105 MEQ/L (98-107); CREATININE FOR GFR 0.51 MG/DL (0.70-1.30); GLOMERULAR FILTRATION RATE > 60.0 (>56); GLUCOSE, FASTING 90 MG/DL (70-100); MAGNESIUM LEVEL 1.8 MG/DL (1.8-2.4); POTASSIUM SERUM 3.8 MEQ/L (3.5-5.1); SODIUM LEVEL 138 MEQ/L (136-145); TOTAL PROTEIN 6.2 GM/DL (6.4-8.2)
[2020-09-16] MEDS ORDERED: NICOTINE 21MG/24HR 1 EA TRANSDERMAL TD SCH (09:00)
[2020-09-16] MEDS ORDERED: PANTOPRAZOLE 40MG TAB (PROTONIX) PO SCH (09:00)
[2020-09-16] MEDS: QUEtiapine FUMARATE 100 MG TAB PO SCH (09:51)
[2020-09-16] MEDS: ENOXAPARIN 40MG/0.4ML SYRINGE (J1650 PER 10MG) SC SCH (09:51)
[2020-09-16] MEDS: MULTIVITAMINS/MINERALS THERAP 1 TAB PO SCH (09:51)
[2020-09-16] MEDS: THIAMINE 100 MG TAB PO SCH (09:52)
[2020-09-16] MEDS: SERTRALINE HCL 50 MG TAB PO SCH (09:52)
[2020-09-16] MEDS: FOLIC ACID 1 MG TAB PO SCH (09:52)
[2020-09-16] MEDS: DOCUSATE SODIUM 100MG CAPSULE PO SCH ×2 (09:52→21:24)
[2020-09-16] MEDS: levETIRAcetam 250MG TABLET (KEPPRA) PO SCH ×2 (09:52→21:24)
[2020-09-16] MEDS: LORazepam 2 MG TAB PO SCH ×4 (10:00→21:24)
--- NOTE | 2020-09-16 10:26 | IPNPDOC ---
Subjective Date Seen The patient was seen on 09/16/20. Subjective Chief Complaint/HPI Patient complaining of increasing shakes as per patient he feels better if when he gets his Ativan once in a while, also complaining of increasing thirst and dehydration. According to the nursing patient was having visual hallucinations last night. Patient is very cooperative but clearly in the severe withdrawal at the present time. General: Reports: Other Symptoms (Tremors) Constitutional: Denies: Chills, Fever, Malaise, Night Sweats, Weakness, Fatigue, Weight Loss, Lethargy, Other Pulmonary: Denies: Dyspnea, Cough, Pleuritic Chest Pain, Other Symptoms Cardiovascular: Denies: Chest Pain, Palpitations, Orthopnea, Paroxysmal Noc. Dyspnea, Edema, Lt Headedness, Other Symptoms Gastrointestinal: Denies: Nausea, Vomiting, Abdominal Pain, Diarrhea, Constipation, Melena, Hematochezia, Other Symptoms Musculoskeletal: Denies: Neck Pain, Back Pain, Shoulder Pain, Arm Pain, Hand Pain, Leg Pain, Foot Pain, Joint Pain, Muscle Pain, Spasms, Other Symptoms Neurological: Reports: Other Symptoms (Bilateral arm tremors) Psych: Reports: Mood Normal, Anxiety Objective Physical Examination General Exam: Positive: Alert, Cooperative, Other (In moderate distress) Eye Exam: Positive: PERRLA, Conjunctiva & lids normal Chest Exam: Positive: Clear to auscultation, Normal air movement Heart Exam: Positive: Rate Normal, Normal S1, Normal S2 Abdomen Exam: Positive: Normal bowel sounds, Soft Skin Exam: Positive: Nl turgor and temperature Neuro Exam: Positive: Other (Positive resting tremors bilateral upper extremities but no focal motor or sensory deficit) Assessment /Plan Problems (1) Alcohol withdrawal delirium, acute, hypoactive Status: Acute (2) Alcohol related seizure (3) Dehydration Status: Acute (4) Nicotine addiction Status: Acute Plan/VTE VTE Prophylaxis Ordered?: Yes Plan 1. Alcohol withdrawal with acute hypoactive delirium #2 alcohol withdrawal induced seizure #3 clinical dehydration #4 nicotine addiction Patient on physical examination is clearly clearly in a fulminant alcohol withdrawal with the poor control. Patient will require standing dose alcohol detox protocol with Ativan and Ativan as needed as per symptomatic CIWA protocol. Patient also requires thiamine folic acid multivitamin and magnesium and will check all the labs and orders and will add to the orders if needed. Patient will benefit from a higher dose thiamine IV injections for at least 3 days and then he can be continued on p.o. thiamine as it will improve his mental status and improved delirium symptoms. Patient has a history of alcohol withdrawal seizures, he did not get any witnessed seizure in the hospital but will be prudent to place him on Keppra 500 mg p.o. twice daily as prophylactic for at least 7 days. Patient clinically of slow dehydrated with a dry mucous membrane of mouth and dry skin on touch, he will benefit from IV hydration with normal saline 150 cc/h as well as it will help with removal of alcohol metabolic byproduct. Patient is significant history of cigarette smoking he smokes more than 2 packs/day again withdrawal could contribute to his anxiety and will place him on nicotine withdrawal with the NicoDerm 21 mg patch daily. Patient will probably require social work intervention for possible inpatient rehab placement for long-term care otherwise patient will bounce back again with similar symptoms in the near future. DVT prophylaxis as per orders Diet is regular VS, I&O, 24H, Fishbone Vital Signs/I&O Vital Signs Date Time Temp Pulse Resp B/P (MAP) Pulse Ox O2 Delivery O2 Flow Rate FiO2 09/16/20 09:18 125/85 (98) 09/16/20 09:00 100 09/16/20 08:00 98.6 18 98 Room Air 09/16/20 07:48 2.0 I&O- Last 24 Hours up to 6 AM 09/16/20 06:00 Intake Total 3420 ml Output Total 1950 ml Balance 1470 ml Laboratory Data 24H LABS Laboratory Tests 2 09/15/20 16:53: Bedside Glucose (Misc Panel) 84 09/16/20 04:58: Immature Granulocyte % (Auto) 0.4, Neutrophils (%) (Auto) 46.8, Lymphocytes (%) (Auto) 26.6, Monocytes (%) (Auto) 14.5H, Eosinophils (%) (Auto) 10.2H, Basophils (%) (Auto) 1.5H, Neutrophils # (Auto) 2.4, Lymphocytes # (Auto) 1.4L, Monocytes # (Auto) 0.8, Eosinophils # (Auto) 0.5, Basophils # (Auto) 0.1, Nucleated Red Blood Cells % (auto) 0.0, Anion Gap 3L, Glomerular Filtration Rate > 60.0, Calcium Level 8.5, Magnesium Level 1.8, Total Bilirubin 0.2#, Aspartate Amino Transf (AST/SGOT) 35, Alanine Aminotransferase (ALT/SGPT) 63, Alkaline Phosphatase 73, Total Protein 6.2L, Albumin 3.1L, Albumin/Globulin Ratio 1.0 CBC/BMP Laboratory Tests 09/16/20 04:58 SEDRICK TILLMAN MD Sep 16, 2020 10:26
[2020-09-16] MEDS ORDERED: THIAMINE INJection 500 MG in NS 100 ML IV SCH (12:00)
--- NOTE | 2020-09-16 13:48 | REP ---
INDICATION: To rule out any rib fractures as patient had a fall.. COMPARISON: 09/14/2020 portable. TECHNIQUE: PA lateral FINDINGS: Lung summers are much better inflated than on the previous study. There is no pleural effusion, lateral pleural thickening or pneumothorax. See no acute infiltrate atelectasis or parenchymal mass. Heart not grossly enlarged. The aorta is calcified at the arch but without aneurysm hilar and mediastinal contours are unremarkable bony thorax shows no compression deformity in the spine malalignment. Visualized clavicles scapulae and humeral heads were unremarkable. See no visualized or displaced rib fractures on these images. IMPRESSION: No acute cardiopulmonary change. There is no visible of the fracture or spine compression deformity. Please recall that two-view chest radiography cannot "rule out" a rib fracture. A dedicated rib series is much more sensitive for rib injuries. <Electronically signed by Wilmer Saxena > 09/16/20 [id number]
--- NOTE | 2020-09-16 18:22 | EEG ---
ELECTROENCEPHALOGRAM DATE: 09/15/2020 REFERRING PHYSICIAN: Dr. Trell Jim DIAGNOSIS: Seizure. EEG# [id number] HISTORY: The patient is a 55-year-old man who was admitted to [facility] due to a possible seizure. His blood alcohol level was 0.34. He is currently taking folic acid, oxazepam, Sertraline, thiamine, Lisinopril, quetiapine, etc. TECHNICAL DESCRIPTION: This digital electroencephalogram (EEG) was recorded by 21 scalp, ear, and two electrocardiogram (EKG) electrodes and was reviewed in bipolar and referential montages following reformatting in 10-20 international electrode placement system. INTERPRETATION: The patient was noted to be in awake and drowsy states during this EEG. Resting and awake background rhythm consisted of 9 Hz alpha activity measuring 15-30 microvolts in amplitude which was symmetric and reactive to eye opening. Attenuation of posterior dominant rhythm was seen during transition to drowsiness. Anteriorly low voltage, mixed frequency activity was noted. Excessive beta activity was noted in frontal head regions. Stages I and II sleep were reviewed and were symmetric bilaterally. Hyperventilation was not performed. Photic stimulation remained unremarkable. EKG revealed normal sinus rhythm. No focal, lateralizing, or epileptiform abnormalities were seen. No relevant clinical activity was noted. CONCLUSION: This EEG in awake, drowsy states, stage I and II sleep is within normal limits. Excessive beta activity is due to medication effect.
[2020-09-16] MEDS ORDERED: RAMELTEON 8 MG TAB (ROZEREM) PO PRN (21:35)
[2020-09-17] VITALS: BP 128/80
[2020-09-17] MEDS: LORazepam 2 MG TAB PO SCH ×2 (02:32→06:03)
[2020-09-17 04:00] VITALS: BP 154/94
[2020-09-17 05:45] LABS: BASO # 0.1 10^3/uL (0.0-0.2); BASO % 1.6 % (0.0-1.0); EOS # 0.7 10^3/uL (0.0-0.5); EOS % 10.8 % (0.0-3.0); HEMATOCRIT 32.5 % (42.0-52.0); HEMOGLOBIN 10.9 g/dl (13.5-17.5); LYMPH # 1.6 10^3/uL (1.5-5.0); LYMPH % 25.4 % (24.0-44.0); MEAN CORPUSCULAR HEMOGLOBIN 31.2 pg (27.0-33.0); MEAN CORPUSCULAR HGB CONC 33.5 g/dl (32.0-36.5); MEAN CORPUSCULAR VOLUME 93.1 fl (80.0-96.0); MONO # 0.7 10^3/uL (0.0-0.8); MONO % 11.7 % (2.0-8.0); NEUTROPHILS # 3.2 10^3/uL (1.5-8.5); PLATELET COUNT, AUTOMATED 212 10^3/uL (150-450); RED BLOOD COUNT 3.49 10^6/uL (4.30-6.10); WHITE BLOOD COUNT 6.3 10^3/uL (4.0-10.0)
[2020-09-17 06:09] LABS: ALT/SGPT 59 U/L (12-78); BILIRUBIN,TOTAL 0.3 MG/DL (0.2-1.0); BLOOD UREA NITROGEN 5 MG/DL (7-18); CALCIUM LEVEL 8.4 MG/DL (8.5-10.1); CARBON DIOXIDE LEVEL 28 MEQ/L (21-32); CHLORIDE LEVEL 106 MEQ/L (98-107); CREATININE FOR GFR 0.52 MG/DL (0.70-1.30); GLOMERULAR FILTRATION RATE > 60.0 (>56); GLUCOSE, FASTING 93 MG/DL (70-100); MAGNESIUM LEVEL 1.8 MG/DL (1.8-2.4); POTASSIUM SERUM 3.8 MEQ/L (3.5-5.1); SODIUM LEVEL 138 MEQ/L (136-145); TOTAL PROTEIN 6.2 GM/DL (6.4-8.2)
[2020-09-17] MEDS: NS 1,000 ML IV SCH (06:24)
[2020-09-17 08:00] VITALS: BP 148/95
[2020-09-17] MEDS ORDERED: THIAMINE 200MG/2ML VIAL (J3411 PER 100MG) IV SCH (09:00)
--- NOTE | 2020-09-17 11:36 | DS.PDOC ---
Discharge Summary General Date of Admission Sep 14, 2020 at 11:36 Date of Discharge 09/17/2020 Attending Physician: SHALINI FERGUSON MD [facility] Discharge Summary Patient elected to sign out AMA and was cognitively able to make that decision. PROCEDURES PERFORMED DURING STAY: EEG ADMITTING DIAGNOSES: Acute alcohol intoxication with seizure activity DISCHARGE DIAGNOSES: Acute alcohol intoxication with delirium tremens COMPLICATIONS/CHIEF COMPLAINT: Alcohol Abuse With Intoxication, Withdrawal Seizure. HISTORY OF PRESENT ILLNESS: 55-year old male patient history of hypertension, COPD, history of alcohol abuse with withdrawal symptoms including seizures, depression with suicidal ideation in the past. Was brought into the emergency department by EMS as patient is alcohol intoxicated. Patient was drowsy, and could not answer any of the question. Most of the history was obtained from ED physician. Patient presented in the ENT office for an appointment but patient was alcohol intoxicated during that time and did not get the procedure he needs to get. In the ED patient did have an clonic seizure, no incontinence, which lasted about 10 minutes followed by about 5 to 10 minutes of postictal state. In the ED patient was given 1 g of Ativan, 1000 mg of Keppra and a banana bag. When I saw him in the ED patient was drowsy from the medication he got HOSPITAL COURSE: Patient received Ativan multiple times during admission including 2 hours prior to signing out AMA however was able to reiterate the risks of leaving AMA to include repeat seizures, heart attacks, falls, strokes, and or serious injury. DISCHARGE MEDICATIONS: Please see below. ALLERGIES: Please see below. PHYSICAL EXAMINATION ON DISCHARGE: VITAL SIGNS: Please see below. GENERAL: WD/WN HEENT: EOMI NECK: Supple CARDIOVASCULAR EXAMINATION: RRR, no M/R/G, no peripheral edema RESPIRATORY EXAMINATION: CTAB, no accessory muscle use ABDOMINAL EXAMINATION: Non distended EXTREMITIES: No obvious deformities SKIN: No appreciated laceration NEUROLOGICAL EXAMINATION: AOx3 PSYCHIATRIC EXAMINATION: Euthymic LABORATORY DATA: Please see below. IMAGING: CXR: IMPRESSION: Limited examination cannot exclude right basilar airspace disease. CT Head: IMPRESSION: No evidence of bleed. No evidence of mass effect. EEG: INTERPRETATION: The patient was noted to be in awake and drowsy states during this EEG. Resting and awake background rhythm consisted of 9 Hz alpha activity measuring 15-30 microvolts in amplitude which was symmetric and reactive to eye opening. Attenuation of posterior dominant rhythm was seen during transition to drowsiness. Anteriorly low voltage, mixed frequency activity was noted. Excessive beta activity was noted in frontal head regions. Stages I and II sleep were reviewed and were symmetric bilaterally. Hyperventilation was not performed. Photic stimulation remained unremarkable. EKG revealed normal sinus rhythm. No focal, lateralizing, or epileptiform abnormalities were seen. No relevant clinical activity was noted. PROGNOSIS: Fair ACTIVITY: [As tolerated]. DIET: Regular, abstain from alcohol DISCHARGE PLAN: Follow up with counselor and established PCM within 3 days of discharge. DISPOSITION: 07 Against Medical Advice. ITEMS TO FOLLOWUP ON ON OUTPATIENT: 1. Alcohol withdrawals 2. Seizure history DISCHARGE CONDITION: [Stable]. TIME SPENT ON DISCHARGE: Greater than 33 minutes. Vital Signs/I&Os Vital Signs Date Time Temp Pulse Resp B/P (MAP) Pulse Ox O2 Delivery O2 Flow Rate FiO2 09/17/20 08:00 97.6 87 16 148/95 (112) 97 Nasal Cannula 2.0 I&O- Last 24 Hours up to 6 AM 09/17/20 06:00 Intake Total 4880 ml Output Total 3025 ml Balance 1855 ml Laboratory Data Labs 24H Laboratory Tests 2 09/17/20 05:11: Immature Granulocyte % (Auto) 0.5, Neutrophils (%) (Auto) 50.0, Lymphocytes (%) (Auto) 25.4, Monocytes (%) (Auto) 11.7H, Eosinophils (%) (Auto) 10.8H, Basophils (%) (Auto) 1.6H, Neutrophils # (Auto) 3.2, Lymphocytes # (Auto) 1.6, Monocytes # (Auto) 0.7, Eosinophils # (Auto) 0.7H, Basophils # (Auto) 0.1, Nucleated Red Blood Cells % (auto) 0.0, Anion Gap 4L, Glomerular Filtration Rate > 60.0, Calcium Level 8.4L, Magnesium Level 1.8, Total Bilirubin 0.3, Aspartate Amino Transf (AST/SGOT) 35, Alanine Aminotransferase (ALT/SGPT) 59, Alkaline Phosphatase 73, Total Protein 6.2L, Albumin 3.0L, Albumin/Globulin Ratio 0.9 CBC/BMP Laboratory Tests 09/17/20 05:11 Discharge Medications Scheduled Lisinopril (Lisinopril) 20 Mg Tablet, 20 MG PO DAILY, (Reported) Quetiapine Fumarate (Quetiapine Fumarate) 50 Mg Tablet, 100 MG PO DAILY, (Rep orted) Sertraline HCl (Sertraline HCl) 50 Mg Tablet, 50 MG PO DAILY, (Reported) Scheduled PRN Hydroxyzine HCl (Hydroxyzine HCl) 25 Mg Tablet, 25 MG PO Q6H PRN for ANXIETY, (Reported) Nitroglycerin (Nitroglycerin) 0.4 Mg Tab.subl, 0.4 MG SL ASDIRECTED PRN for CHEST PAIN, (Reported) Sildenafil Citrate (Sildenafil Citrate) 100 Mg Tablet, 100 MG PO ASDIRECTED PRN for ERECTILE DYSFUNCTION, (Reported) Miscellaneous Medications [Med Rec Comment] , (Reported) LIST OBTAINED FROM PHARMACY; UNABLE TO OBTAIN INFORMATION FROM PATIENT Allergies Coded Allergies: Penicillins (Verified Allergy, Mild, hives, 02/08/20) diphenhydramine (Verified Allergy, Mild, rash, 02/08/20) hydrocodone (Verified Allergy, Mild, rash, 02/08/20) latex (Verified Allergy, Mild, hives, 02/08/20) phenytoin (Verified Allergy, Mild, rash, 02/08/20) primidone (Verified Allergy, Mild, rash, 02/08/20) SHALINI FERGUSON MD [facility] Sep 17, 2020 11:36
[2020-09-17] MEDS ORDERED: LORazepam 2 MG TAB PO SCH (12:00)
[2020-09-18] MEDS ORDERED: LORazepam 1 MG TAB PO SCH (10:00)
[2020-09-19] MEDS ORDERED: LORazepam 1 MG TAB PO SCH (12:00)
== END 2020-09-17 09:06 | disposition left against medical advice (07) ==
LOC: M ED 07:36 → M PCU 07:37 → UNDOADMIN 11:36 → M ED INP 11:36 → M PCU 21:45 → UNDODISIN 09-17 09:06
PROVIDERS: ADMIT Internal Medicine; ATTEND Internal Medicine
DX: F10.129 Alcohol abuse with intoxication, unspecified (principal); R56.9 Unspecified convulsions; F10.131 Alcohol abuse with withdrawal delirium; I10 Essential (primary) hypertension; J44.9 Chronic obstructive pulmonary disease, unspecified; F32.9 Major depressive disorder, single episode, unspecified; F17.200 Nicotine dependence, unspecified, uncomplicated; E86.0 Dehydration; R74.01 Elevation of levels of liver transaminase levels; Z79.899 Other long term (current) drug therapy; Z88.0 Allergy status to penicillin; Z88.5 Allergy status to narcotic agent; Z88.8 Allergy status to other drugs, medicaments and biological substances; Z91.040 Latex allergy status; Z98.1 Arthrodesis status; Z20.822 Contact with and (suspected) exposure to COVID-19
CPT/HCPCS: 36415; 70450; 71045; 71046; 80048; 80053; 80076; 80307; 82077; 83735; 85025; 85610; 87631; 93005; 93041; 94760; 95819; 96361; 96365; 96366; 96372; 96375; 97161; 97165; 99285; G0378; J1650; J1953; J2060; J3411

== ENCOUNTER 2020-09-17 09:34 | Emergency (ER) | payer MEDICARE ==
[~2020-09-17] VITALS: Ht 177.8 cm; Wt 86.3 kg
[~2020-09-17 09:34] MED LIST changes: +HYDR-3363 PO; +MED REC COMMENT; +NITR0.4S14 SL; +QUET50TA3 PO; +SILD100T PO
--- NOTE | 2020-09-17 10:31 | REP ---
INDICATION: trauma. COMPARISON: None. TECHNIQUE: AP pelvis with two views bilateral hips FINDINGS: AP pelvis pelvic ring intact SI joints symmetric. Iliac wings, pubic rami, symphysis pubis, acetabula E intact. No gross fracture about the hips. There is sacralization of transverse processes of L5 right greater than left. Degenerative disc and facet changes lower lumbar spine at L4-5. Right hip: Two views show minor degenerative spurring acetabular roof. Hip joint space is preserved. There is no evidence of AVN or fracture. Femoral head, neck, trochanters and subtrochanteric femoral shaft are unremarkable. Acetabulum, pubic rami, pubic symphysis and inferior right SI joint were unremarkable. Left hip: Two view show minor degenerative spurring acetabular roof. Hip joint space is preserved. There is no evidence of AVN or fracture. Femoral head, neck, trochanters and subtrochanteric femoral shaft are unremarkable. Acetabulum, pubic rami, symphysis pubis and inferior left SI joint were unremarkable. IMPRESSION: 1. Minor degenerative changes at the hips with acetabular roof small spurs and sclerosis. 2. Facet arthropathy and degenerative disc changes L4-5 and sacralization transverse processes of L5. 3. No acute bony abnormality of the pelvis and bilateral hips. <Electronically signed by Wilmer Saxena > 09/17/20 [id number]
[2020-09-17 11:46] VITALS: BP 166/104
== END 2020-09-17 11:48 | disposition home or self-care (01) ==
LOC: M ED 09:34
DX: S70.02XA Contusion of left hip, initial encounter (principal); V03.10XA Pedestrian on foot injured in collision with car, pick-up truck or van in traffic accident, initial encounter; Y92.481 Parking lot as the place of occurrence of the external cause; I10 Essential (primary) hypertension; J44.9 Chronic obstructive pulmonary disease, unspecified; F10.10 Alcohol abuse, uncomplicated; F33.9 Major depressive disorder, recurrent, unspecified; Z79.899 Other long term (current) drug therapy; Z88.0 Allergy status to penicillin; Z88.5 Allergy status to narcotic agent; Z88.8 Allergy status to other drugs, medicaments and biological substances; Z91.040 Latex allergy status; F17.210 Nicotine dependence, cigarettes, uncomplicated

== ENCOUNTER 2020-10-24 22:38 | Emergency (ER) | payer MEDICARE ==
[~2020-10-24] VITALS: Ht 177.8 cm; Wt 84.1 kg
[~2020-10-24 22:38] MED LIST changes: -QUET50TA3 PO; +QUET50TA4 PO
[2020-10-25 01:33] VITALS: BP 164/87
== END 2020-10-25 02:09 | disposition home or self-care (01) ==
LOC: M ED 22:38
DX: F10.129 Alcohol abuse with intoxication, unspecified (principal); Z79.899 Other long term (current) drug therapy; Z88.0 Allergy status to penicillin; Z88.8 Allergy status to other drugs, medicaments and biological substances; Z88.5 Allergy status to narcotic agent; Z91.040 Latex allergy status

== ENCOUNTER → 2021-01-22 | Outpatient (REF) | LOC: M LAB REF 17:37 | PROVIDERS: ATTEND Hospitalist | DX: Z00.00 Encounter for general adult medical examination without abnormal findings (principal) ==

== ENCOUNTER 2023-03-17 06:39 | Inpatient (IN) | payer MEDICARE ==
[~2023-03-17] VITALS: Ht 177.8 cm; Wt 95.4 kg
[~2023-03-17 06:39] MED LIST changes: -GABA-283 PO; +GABA-284 PO; +OMEP-173 PO; -OMEP-218 PO; +RISP-105 PO; -RISP-8 PO
[2023-03-17 07:58] LABS: HEMATOCRIT 37.4 % (42.0-52.0); HEMOGLOBIN 12.8 g/dl (13.5-17.5); MEAN CORPUSCULAR HEMOGLOBIN 29.2 pg (27.0-33.0); MEAN CORPUSCULAR HGB CONC 34.2 g/dl (32.0-36.5); MEAN CORPUSCULAR VOLUME 85.4 fl (80.0-96.0); PLATELET COUNT, AUTOMATED 245 10^3/uL (150-450); RED BLOOD COUNT 4.38 10^6/uL (4.30-6.10); WHITE BLOOD COUNT 8.3 10^3/uL (4.0-10.0)
[2023-03-17 08:21] LABS: ETHYL ALCOHOL (ETHANOL) 0.239 % (0.000-0.010)
[2023-03-17 08:23] LABS: ALBUMIN 4.1 G/DL (3.2-5.2); ALKALINE PHOSPHATASE 78 U/L (46-116); ALT/SGPT 41 U/L (7.0-40); AST/SGOT 39 U/L (<34); BILIRUBIN,DIRECT < 0.1 MG/DL (<0.4); BILIRUBIN,TOTAL 0.3 MG/DL (0.3-1.2); BLOOD UREA NITROGEN 13 MG/DL (9-23); CALCIUM LEVEL 8.7 MG/DL (8.5-10.1); CARBON DIOXIDE LEVEL 20 MMOL/L (20-31); CHLORIDE LEVEL 100 MMOL/L (98-107); CREATININE FOR GFR 0.53 MG/DL (0.70-1.30); GLOMERULAR FILTRATION RATE > 60.0 (>56); GLUCOSE, FASTING 101 MG/DL (60-100); SALICYLATE LEVEL < 3.0 MG/DL (<30); SODIUM LEVEL 132 MMOL/L (136-145); TOTAL PROTEIN 7.1 G/DL (5.7-8.2)
[2023-03-17] MEDS ORDERED: TRAZ-252 PO (08:26)
[2023-03-17] MEDS ORDERED: LAMO25TA4 PO (08:26)
[2023-03-17] MEDS ORDERED: QUET100T2 PO (08:26)
[2023-03-17] MEDS ORDERED: PRAZ1CAP PO (08:26)
[2023-03-17] MEDS ORDERED: DULO1CAP5 PO (08:26)
[2023-03-17] MEDS ORDERED: GABA-282 PO (08:26)
[2023-03-17] MEDS ORDERED: CELE1CAP99 PO (08:26)
[2023-03-17] MEDS ORDERED: PRAZ2CAP PO (08:26)
[2023-03-17] MEDS ORDERED: MED REC COMMENT (08:29)
[2023-03-17] MEDS ORDERED: HOME MED LIST COMPLETE! XX SCH ×2 (08:30→16:40)
[2023-03-17] MEDS ORDERED: LORazepam 2 MG TAB PO PRN ×2 (08:30→16:35)
[2023-03-17] MEDS ORDERED: THIAMINE 100 MG TAB PO SCH (09:00)
[2023-03-17] MEDS ORDERED: FOLIC ACID 1MG TAB PO SCH (09:00)
[2023-03-17] MEDS ORDERED: MULTIVITAMINS/MINERALS THERAP 1 TAB PO SCH (09:00)
[2023-03-17 09:21] LABS: AMPHETAMINES LEVEL URINE NEGATIVE (NEGATIVE); BARBITURATES URINE NEGATIVE (NEGATIVE); BENZODIAZEPINES URINE NEGATIVE (NEGATIVE); COCAINE METABOLITE URINE NEGATIVE (NEGATIVE)
[2023-03-17 09:22] LABS: CANNABINOIDS URINE NEGATIVE (NEGATIVE); METHADONE URINE NEGATIVE (NEGATIVE); OPIATES URINE NEGATIVE (NEGATIVE); PHENCYCLIDINE URINE NEGATIVE (NEGATIVE)
[2023-03-17] MEDS ORDERED: traZODone 50 MG TAB PO PRN (16:35)
[2023-03-17] MEDS ORDERED: MAALOX 30 ML SUSP *UDC PO PRN (16:35)
[2023-03-17] MEDS ORDERED: IBUPROFEN 400MG TAB PO PRN (16:35)
[2023-03-17] MEDS ORDERED: ACETAMINOPHEN TAB 650MG DOSE (2X325MG) PO PRN (16:35)
[2023-03-17] MEDS ORDERED: MOM 30ML SUSPENSION UDC PO PRN (16:35)
[2023-03-17] MEDS ORDERED: VENTAER INH (16:35)
[2023-03-17] MEDS ORDERED: diphenhydrAMINE 25MG CAP PO PRN (16:35)
[2023-03-17] MEDS ORDERED: ADV100INH INH (16:36)
[2023-03-17] MEDS: THIAMINE 100 MG TAB PO SCH (21:03)
[2023-03-17 23:49] VITALS: BP 140/83; TEMP 98.3; O2SAT 98
[2023-03-18 01:11] VITALS: BP 140/83
[2023-03-18] MEDS: THIAMINE 100 MG TAB PO SCH ×2 (08:11→21:17)
[2023-03-18] MEDS: MULTIVITAMINS/MINERALS THERAP 1 TAB PO SCH ×2 (08:11→11:15)
[2023-03-18] MEDS: FOLIC ACID 1MG TAB PO SCH (08:11)
[2023-03-18] MEDS ORDERED: PRAZOSIN 1 MG CAP PO SCH ×3 (09:00→14:23)
[2023-03-18] MEDS ORDERED: traZODone 50 MG TAB PO SCH (09:00)
[2023-03-18] MEDS ORDERED: QUEtiapine FUMARATE 100 MG TAB PO SCH ×2 (09:00→21:00)
[2023-03-18 09:30] VITALS: BP 127/84
[2023-03-18] MEDS ORDERED: NITROGLYCERIN 0.4MG SUBL TABLET SL PRN (10:20)
[2023-03-18] MEDS: ALBUTEROL 90 MCG/ACT 8GM HFA INHALER INH SCH (11:11)
[2023-03-18] MEDS: NICOTINE 21MG/24HR 1 EA TRANSDERMAL TD SCH (11:14)
[2023-03-18] MEDS: SERTRALINE HCL 50 MG TAB PO SCH (11:14)
[2023-03-18] MEDS: GABAPENTIN 300 MG CAP PO SCH (11:15)
[2023-03-18] MEDS: lamoTRIgine 25MG TAB PO SCH ×2 (11:15→21:17)
[2023-03-18] MEDS: ADVAIR HFA 45/21MCG INHALER INH SCH ×2 (11:24→21:16)
[2023-03-18] MEDS: CelecoXIB (CeleBREX) 100 MG CAP PO SCH ×2 (13:12→21:17)
[2023-03-18 16:24] VITALS: BP 111/71; TEMP 98.6; O2SAT 96
[2023-03-18 17:30] VITALS: BP 111/71
[2023-03-18] MEDS: traZODone 50 MG TAB PO SCH (21:17)
[2023-03-18] MEDS: QUEtiapine FUMARATE 100 MG TAB PO SCH (21:17)
[2023-03-19] VITALS: BP 114/57
[2023-03-19 06:42] VITALS: BP 129/83
[2023-03-19 06:49] VITALS: BP 129/83; TEMP 97.1; O2SAT 98
[2023-03-19 08:33] VITALS: BP 129/71
[2023-03-19] MEDS: ALBUTEROL 90 MCG/ACT 8GM HFA INHALER INH SCH (08:34)
[2023-03-19] MEDS: ADVAIR HFA 45/21MCG INHALER INH SCH ×2 (08:34→21:36)
[2023-03-19] MEDS: SERTRALINE HCL 50 MG TAB PO SCH (08:35)
[2023-03-19] MEDS: lamoTRIgine 25MG TAB PO SCH ×2 (08:35→20:17)
[2023-03-19] MEDS: GABAPENTIN 300 MG CAP PO SCH (08:35)
[2023-03-19] MEDS: CelecoXIB (CeleBREX) 100 MG CAP PO SCH ×2 (08:35→20:17)
[2023-03-19] MEDS: FOLIC ACID 1MG TAB PO SCH (08:36)
[2023-03-19] MEDS: THIAMINE 100 MG TAB PO SCH (08:36)
[2023-03-19] MEDS: MULTIVITAMINS/MINERALS THERAP 1 TAB PO SCH (08:36)
[2023-03-19] MEDS: PRAZOSIN 1 MG CAP PO SCH (08:36)
[2023-03-19] MEDS: NICOTINE 21MG/24HR 1 EA TRANSDERMAL TD SCH (08:41)
[2023-03-19 17:31] VITALS: BP 115/77; TEMP 98.4
[2023-03-19] MEDS: QUEtiapine FUMARATE 100 MG TAB PO SCH (20:17)
[2023-03-19] MEDS: traZODone 50 MG TAB PO SCH (20:17)
[2023-03-20] MEDS: ADVAIR HFA 45/21MCG INHALER INH SCH ×3 (09:00→21:47)
[2023-03-20] MEDS: ALBUTEROL 90 MCG/ACT 8GM HFA INHALER INH SCH ×2 (09:00→10:11)
[2023-03-20 09:45] VITALS: BP 162/102
[2023-03-20] MEDS: NICOTINE 21MG/24HR 1 EA TRANSDERMAL TD SCH (10:09)
[2023-03-20] MEDS: GABAPENTIN 300 MG CAP PO SCH (10:10)
[2023-03-20] MEDS: SERTRALINE HCL 50 MG TAB PO SCH (10:11)
[2023-03-20] MEDS: lamoTRIgine 25MG TAB PO SCH ×2 (10:11→21:47)
[2023-03-20] MEDS: CelecoXIB (CeleBREX) 100 MG CAP PO SCH ×2 (10:11→21:47)
[2023-03-20] MEDS: PRAZOSIN 1 MG CAP PO SCH (10:19)
[2023-03-20 13:00] VITALS: BP 135/92
[2023-03-20] MEDS ORDERED: LORazepam 2 MG TAB PO PRN (13:00)
[2023-03-20] MEDS: FOLIC ACID 1MG TAB PO SCH (13:31)
[2023-03-20] MEDS: MULTIVITAMINS/MINERALS THERAP 1 TAB PO SCH (13:31)
[2023-03-20] MEDS: THIAMINE 100 MG TAB PO SCH ×2 (13:31→21:47)
[2023-03-20 17:12] VITALS: BP 128/84; TEMP 98.4; O2SAT 95
[2023-03-20 21:08] VITALS: BP 162/102
[2023-03-20] MEDS: QUEtiapine FUMARATE 100 MG TAB PO SCH (21:47)
[2023-03-20] MEDS: traZODone 50 MG TAB PO SCH (21:47)
[2023-03-21 06:35] VITALS: BP 128/79
[2023-03-21 06:36] VITALS: BP 128/79; TEMP 97.8; O2SAT 93
[2023-03-21] MEDS: ALBUTEROL 90 MCG/ACT 8GM HFA INHALER INH SCH (08:07)
[2023-03-21] MEDS: lamoTRIgine 25MG TAB PO SCH (08:09)
[2023-03-21] MEDS: FOLIC ACID 1MG TAB PO SCH (08:09)
[2023-03-21] MEDS: GABAPENTIN 300 MG CAP PO SCH (08:09)
[2023-03-21 08:10] VITALS: BP 150/98
[2023-03-21] MEDS: MULTIVITAMINS/MINERALS THERAP 1 TAB PO SCH (08:10)
[2023-03-21] MEDS: THIAMINE 100 MG TAB PO SCH (08:10)
[2023-03-21] MEDS: CelecoXIB (CeleBREX) 100 MG CAP PO SCH (08:11)
[2023-03-21] MEDS: ADVAIR HFA 45/21MCG INHALER INH SCH (08:14)
[2023-03-21] MEDS: NICOTINE 21MG/24HR 1 EA TRANSDERMAL TD SCH (08:14)
[2023-03-21] MEDS ORDERED: SERTRALINE HCL 50 MG TAB PO SCH (09:00)
[2023-03-21] MEDS ORDERED: SERTRALINE HCL 25 MG TABLET PO SCH (09:00)
[2023-03-21] MEDS ORDERED: NICO21PAT TD (10:16)
[2023-03-21] MEDS ORDERED: SERT50TA29 PO (10:16)
[2023-03-21] MEDS ORDERED: LAMO25TA4 PO (10:16)
[2023-03-21] MEDS ORDERED: QUET100T2 PO (10:16)
[2023-03-21] MEDS ORDERED: SERT25TA21 PO (10:16)
[2023-03-21] MEDS ORDERED: MINI1CAP PO (10:16)
[2023-03-21] MEDS ORDERED: GABA-282 PO (10:16)
[2023-03-21] MEDS ORDERED: OLAN1TAB16 PO (10:17)
[2023-03-21] MEDS ORDERED: PRAZOSIN 1 MG CAP PO SCH (21:00)
== END 2023-03-21 13:27 | disposition home or self-care (01) | DRG 881 ==
LOC: M ED 06:39 → M ED INP 16:34 → M PSY 23:10
PROVIDERS: ADMIT Student in an Organized Health Care Education/Training Program; ATTEND Student in an Organized Health Care Education/Training Program
DX: F32.A Depression, unspecified (principal); E87.1 Hypo-osmolality and hyponatremia; F10.24 Alcohol dependence with alcohol-induced mood disorder; R45.851 Suicidal ideations; F10.229 Alcohol dependence with intoxication, unspecified; F25.9 Schizoaffective disorder, unspecified; F60.89 Other specific personality disorders; R45.850 Homicidal ideations; F17.210 Nicotine dependence, cigarettes, uncomplicated; I10 Essential (primary) hypertension; G89.29 Other chronic pain; M54.9 Dorsalgia, unspecified; J44.9 Chronic obstructive pulmonary disease, unspecified; M19.90 Unspecified osteoarthritis, unspecified site; R74.01 Elevation of levels of liver transaminase levels; K21.9 Gastro-esophageal reflux disease without esophagitis; Z79.899 Other long term (current) drug therapy; Z98.1 Arthrodesis status; Z88.0 Allergy status to penicillin; Z62.811 Personal history of psychological abuse in childhood; Z62.810 Personal history of physical and sexual abuse in childhood; Z88.5 Allergy status to narcotic agent; Z81.8 Family history of other mental and behavioral disorders; Z63.0 Problems in relationship with spouse or partner; Z88.8 Allergy status to other drugs, medicaments and biological substances; Z91.040 Latex allergy status; Z91.51 Personal history of suicidal behavior

== ENCOUNTER 2023-04-03 15:21 | Emergency (ER) | payer MEDICARE ==
[~2023-04-03] VITALS: Ht 177.8 cm; Wt 97.3 kg
[~2023-04-03 15:21] MED LIST changes: +ADV100INH INH; +CELE1CAP99 PO; +DULO1CAP5 PO; +GABA-282 PO; +LAMO25TA4 PO; +MINI1CAP PO; +OLAN1TAB16 PO; +PRAZ1CAP PO; +PRAZ2CAP PO; +SERT25TA21 PO; +TRAZ-252 PO
[2023-04-03] MEDS ORDERED: LORazepam 2 MG TAB PO PRN (15:55)
[2023-04-03] MEDS ORDERED: THIAMINE 100 MG TAB PO SCH (17:00)
[2023-04-03] MEDS ORDERED: FOLIC ACID 1MG TAB PO SCH (17:00)
[2023-04-03] MEDS ORDERED: MULTIVITAMINS/MINERALS THERAP 1 TAB PO SCH (17:00)
[2023-04-03 18:00] VITALS: BP 153/97; TEMP 96.4; O2SAT 98
== END 2023-04-03 18:13 | disposition home or self-care (01) ==
LOC: M ED 15:21
DX: F10.129 Alcohol abuse with intoxication, unspecified (principal); F31.9 Bipolar disorder, unspecified; F25.9 Schizoaffective disorder, unspecified; F43.10 Post-traumatic stress disorder, unspecified; F17.200 Nicotine dependence, unspecified, uncomplicated; Z79.899 Other long term (current) drug therapy; Z88.0 Allergy status to penicillin; Z88.5 Allergy status to narcotic agent; Z88.8 Allergy status to other drugs, medicaments and biological substances; Z91.040 Latex allergy status

== ENCOUNTER 2023-09-23 18:44 | Inpatient (IN) | payer MEDICARE ==
[~2023-09-23] VITALS: Ht 177.8 cm; Wt 87.0 kg
[2023-09-23] MEDS ORDERED: PANT40TA29 PO (19:14)
[2023-09-23] MEDS: levETIRAcetam INJection 1,000 MG in D5W 100 ML IV ONE (20:14)
[2023-09-23] MEDS: NS 1,000 ML IV ONE (20:14)
[2023-09-23 20:30] LABS: BASO # 0.1 10^3/uL (0.0-0.2); BASO % 1.4 % (0.0-1.0); EOS # 0.2 10^3/uL (0.0-0.5); EOS % 3.7 % (0.0-3.0); HEMATOCRIT 35.2 % (42.0-52.0); HEMOGLOBIN 12.2 g/dl (13.5-17.5); LYMPH # 1.6 10^3/uL (1.5-5.0); LYMPH % 25.1 % (24.0-44.0); MEAN CORPUSCULAR HEMOGLOBIN 31.8 pg (27.0-33.0); MEAN CORPUSCULAR HGB CONC 34.7 g/dl (32.0-36.5); MEAN CORPUSCULAR VOLUME 91.7 fl (80.0-96.0); MONO # 0.5 10^3/uL (0.0-0.8); MONO % 8.3 % (2.0-8.0); NEUTROPHILS % 61.3 % (36.0-66.0); PLATELET COUNT, AUTOMATED 121 10^3/uL (150-450); RED BLOOD COUNT 3.84 10^6/uL (4.30-6.10); WHITE BLOOD COUNT 6.5 10^3/uL (4.0-10.0)
[2023-09-23 20:47] LABS: CPK CREATINE PHOSPHOKINASE 289 U/L (46-171); SALICYLATE LEVEL < 3.0 MG/DL (<30)
[2023-09-23 20:49] LABS: THYROID STIMULATING HORMONE 0.206 uIU/ML (0.55-4.78)
[2023-09-23 20:54] LABS: ALKALINE PHOSPHATASE 76 U/L (46-116); ALT/SGPT 176 U/L (7.0-40); AST/SGOT 145 U/L (<34); BILIRUBIN,DIRECT 0.1 MG/DL (<0.4); BILIRUBIN,TOTAL 0.3 MG/DL (0.3-1.2); BLOOD UREA NITROGEN 5 MG/DL (9-23); CALCIUM LEVEL 8.6 MG/DL (8.5-10.1); CARBON DIOXIDE LEVEL 26 MMOL/L (20-31); CHLORIDE LEVEL 108 MMOL/L (98-107); CREATININE FOR GFR 0.52 MG/DL (0.70-1.30); GLOMERULAR FILTRATION RATE > 60.0 (>56); GLUCOSE, FASTING 89 MG/DL (60-100); SODIUM LEVEL 141 MMOL/L (136-145); TOTAL PROTEIN 6.8 G/DL (5.7-8.2)
[2023-09-23 23:56] LABS: AMPHETAMINES LEVEL URINE NEGATIVE (NEGATIVE); BARBITURATES URINE NEGATIVE (NEGATIVE); BENZODIAZEPINES URINE NEGATIVE (NEGATIVE); CANNABINOIDS URINE NEGATIVE (NEGATIVE); COCAINE METABOLITE URINE NEGATIVE (NEGATIVE); METHADONE URINE NEGATIVE (NEGATIVE); OPIATES URINE NEGATIVE (NEGATIVE); PHENCYCLIDINE URINE NEGATIVE (NEGATIVE)
[2023-09-24] MEDS: MULTIVITAMIN -ADULT INJECTION 10 ML, THIAMINE INJection 100 MG, FOLIC ACID 1 MG in NS 1... IV ONE (00:38)
[2023-09-24] MEDS: LORazepam 2 MG TAB PO PRN ×2 (00:38→15:53)
[2023-09-24] MEDS: ASPIRIN 81MG CHEW TABLET PO ONE (11:36)
[2023-09-24] MEDS: NS 1,000 ML IV ONE (12:33)
[2023-09-24] MEDS: levETIRAcetam INJection 1,000 MG in D5W 100 ML IV ONE (12:37)
[2023-09-24] MEDS ORDERED: ALBUTEROL 90 MCG/ACT 8GM HFA INHALER INH PRN (13:55)
[2023-09-24] MEDS ORDERED: HYDR-3363 PO (13:55)
[2023-09-24] MEDS ORDERED: TRAZ-252 PO (13:55)
[2023-09-24] MEDS ORDERED: ACAM0.05 PO (13:55)
[2023-09-24] MEDS ORDERED: MAGN400T2 PO (13:55)
[2023-09-24] MEDS ORDERED: MOM 30ML SUSPENSION UDC PO PRN (13:55)
[2023-09-24] MEDS ORDERED: SERT-141 PO (13:55)
[2023-09-24] MEDS ORDERED: VENTAER INH (13:55)
[2023-09-24] MEDS ORDERED: ASPI81CH33 PO (13:55)
[2023-09-24] MEDS ORDERED: B-1100TA2 PO (13:55)
[2023-09-24] MEDS ORDERED: QUET200T2 PO (13:55)
[2023-09-24] MEDS ORDERED: KEPP10002 PO (13:55)
[2023-09-24] MEDS ORDERED: FLUT1BLS4 INH (13:55)
[2023-09-24] MEDS ORDERED: med rec comment (13:56)
[2023-09-24] MEDS ORDERED: HOME MED LIST COMPLETE! XX SCH (14:00)
[2023-09-24 14:03] LABS: VENOUS BASE EXCESS 0.4 (-2.0-2.0); VENOUS HCO3 24.8 MMOL/L (23.0-27.0); VENOUS O2 SATURATION 99.1 % (60.0-80.0); VENOUS PARTIAL PRESSURE CO2 39.1 mmHg (38.0-50.0); VENOUS PARTIAL PRESSURE O2 159.1 mmHg (30.0-50.0); VENOUS STANDARD HCO3 24.9 MMOL/L
[2023-09-24] MEDS ORDERED: ONDANSETRON 4MG ORAL DISINTEGRATING TAB SL PRN (14:10)
[2023-09-24] MEDS: NICOTINE 21MG/24HR 1 EA TRANSDERMAL TD SCH (14:31)
[2023-09-24] MEDS: GABAPENTIN 300 MG CAP PO SCH (14:31)
[2023-09-24 14:38] LABS: FREE T4 1.01 NG/DL (0.89-1.76)
[2023-09-24 15:01] LABS: MAGNESIUM LEVEL 1.6 MG/DL (1.8-2.4)
[2023-09-24 15:20] LABS: INR 0.99; PARTIAL THROMBOPLASTIN TIME 24.9 SECONDS (24.8-34.2); PROTHROMBIN TIME 12.8 SECONDS (12.5-14.5)
[2023-09-24] MEDS: HEPARIN SOD (PORCINE) 5000UNITS/ML 1ML VIAL/SYRINGE SC SCH (15:50)
[2023-09-24] MEDS: CAPTOpril 12.5 MG TAB PO SCH (15:52)
[2023-09-24 15:54] LABS: HEPATITIS B SURFACE ANTIGEN NEGATIVE (NEGATIVE)
[2023-09-24] MEDS: MAG SULF 1GM/100ML (MAG RUN) 1 GM in IV 1 EA IV SCH (16:02)
[2023-09-24 16:15] LABS: HEPATITIS C VIRUS ABY INDEX < 0.02 INDEX (<0.8)
[2023-09-24 16:16] LABS: HEPATITIS B CORE ANTIBODY IGM NEGATIVE (NEGATIVE)
[2023-09-24] MEDS: diazePAM 5MG TABLET PO SCH (18:00)
[2023-09-24] MEDS: THIAMINE INJection 500 MG in NS 100 ML IV SCH (18:14)
[2023-09-24] MEDS: ACAMPROSATE CALCIUM 333MG TABLET (CAMPRAL) PO SCH (18:15)
[2023-09-24] MEDS: ADVAIR HFA 45/21MCG INHALER INH SCH (19:22)
[2023-09-24 20:57] VITALS: BP 176/109; TEMP 97.5; O2SAT 93
[2023-09-24 20:59] VITALS: BP 176/109
[2023-09-24] MEDS ORDERED: ADVAIR HFA 230/21MCG INHALER INH SCH (21:00)
[2023-09-24] MEDS: DOCUSATE SODIUM 100MG CAPSULE PO SCH (21:06)
[2023-09-24] MEDS: traZODone 50 MG TAB PO SCH (21:06)
[2023-09-24] MEDS: levETIRAcetam 250MG TABLET (KEPPRA) PO SCH (21:06)
[2023-09-24] MEDS: MAGNESIUM OXIDE 400MG TAB (MAG-OX) PO SCH (21:15)
[2023-09-24] MEDS: QUEtiapine FUMARATE 200 MG TAB PO SCH (21:16)
[2023-09-24 21:55] VITALS: BP 121/73; O2SAT 98
[2023-09-24 23:00] VITALS: O2SAT 96
[2023-09-24 23:53] VITALS: BP 135/87; TEMP 98.3; O2SAT 97
[2023-09-24 23:57] VITALS: BP 137/85
[2023-09-25] VITALS (23 sets, daily range): BP systolic 109–143; BP diastolic 56–92; TEMP 98–98.8; O2SAT 93–99
[2023-09-25 06:03] LABS: HEMATOCRIT 35.9 % (42.0-52.0); HEMOGLOBIN 12.4 g/dl (13.5-17.5); MEAN CORPUSCULAR HGB CONC 34.5 g/dl (32.0-36.5); MEAN CORPUSCULAR VOLUME 92.8 fl (80.0-96.0); PLATELET COUNT, AUTOMATED 103 10^3/uL (150-450); RED BLOOD COUNT 3.87 10^6/uL (4.30-6.10)
[2023-09-25 06:26] LABS: ALBUMIN 3.4 G/DL (3.2-5.2); ALKALINE PHOSPHATASE 74 U/L (46-116); ALT/SGPT 120 U/L (7.0-40); AST/SGOT 77 U/L (<34); BILIRUBIN,DIRECT 0.3 MG/DL (<0.4); BILIRUBIN,TOTAL 0.7 MG/DL (0.3-1.2); BLOOD UREA NITROGEN 8 MG/DL (9-23); CALCIUM LEVEL 8.9 MG/DL (8.5-10.1); CARBON DIOXIDE LEVEL 29 MMOL/L (20-31); CHLORIDE LEVEL 104 MMOL/L (98-107); CREATININE FOR GFR 0.51 MG/DL (0.70-1.30); GLOMERULAR FILTRATION RATE > 60.0 (>56); GLUCOSE, FASTING 79 MG/DL (60-100); MAGNESIUM LEVEL 2.5 MG/DL (1.8-2.4); POTASSIUM SERUM 3.8 MMOL/L (3.5-5.1); SODIUM LEVEL 139 MMOL/L (136-145)
[2023-09-25] MEDS: ASPIRIN 81MG CHEW TABLET PO SCH (09:13)
[2023-09-25] MEDS: SERTRALINE HCL 50 MG TAB PO SCH (09:15)
[2023-09-25] MEDS: PRAZOSIN 1 MG CAP PO SCH (09:15)
[2023-09-25] MEDS: MULTIVITAMINS/MINERALS THERAP 1 TAB PO SCH (09:16)
[2023-09-25] MEDS: FOLIC ACID 1MG TAB PO SCH (09:16)
[2023-09-25] MEDS: PANTOPRAZOLE 40MG TAB (PROTONIX) PO SCH (09:16)
[2023-09-25] MEDS: lisinopriL 40MG TAB PO SCH (13:22)
[2023-09-26 03:20] VITALS: BP 139/65; TEMP 98.2; O2SAT 95
[2023-09-26 07:29] LABS: HEMATOCRIT 34.6 % (42.0-52.0); HEMOGLOBIN 11.9 g/dl (13.5-17.5); MEAN CORPUSCULAR HEMOGLOBIN 32.1 pg (27.0-33.0); MEAN CORPUSCULAR HGB CONC 34.4 g/dl (32.0-36.5); MEAN CORPUSCULAR VOLUME 93.3 fl (80.0-96.0); PLATELET COUNT, AUTOMATED 110 10^3/uL (150-450); RED BLOOD COUNT 3.71 10^6/uL (4.30-6.10); WHITE BLOOD COUNT 4.2 10^3/uL (4.0-10.0)
[2023-09-26 08:00] VITALS: BP 154/98; TEMP 96.8
[2023-09-26 08:07] LABS: ALKALINE PHOSPHATASE 73 U/L (46-116); ALT/SGPT 97 U/L (7.0-40); AST/SGOT 55 U/L (<34); BILIRUBIN,DIRECT 0.1 MG/DL (<0.4); BILIRUBIN,TOTAL 0.3 MG/DL (0.3-1.2); BLOOD UREA NITROGEN 13 MG/DL (9-23); CALCIUM LEVEL 9.6 MG/DL (8.5-10.1); CARBON DIOXIDE LEVEL 27 MMOL/L (20-31); CHLORIDE LEVEL 106 MMOL/L (98-107); CREATININE FOR GFR 0.52 MG/DL (0.70-1.30); GLOMERULAR FILTRATION RATE > 60.0 (>56); GLUCOSE, FASTING 133 MG/DL (60-100); MAGNESIUM LEVEL 1.8 MG/DL (1.8-2.4); POTASSIUM SERUM 4.1 MMOL/L (3.5-5.1); SODIUM LEVEL 138 MMOL/L (136-145); TOTAL PROTEIN 5.6 G/DL (5.7-8.2)
[2023-09-26 12:00] VITALS: BP 139/74; TEMP 97.9; O2SAT 97
[2023-09-26 16:00] VITALS: BP 130/74; TEMP 97.5
[2023-09-26 19:38] VITALS: BP 138/81; TEMP 98.3; O2SAT 99
[2023-09-26 23:33] VITALS: BP 134/76; TEMP 98.5; O2SAT 95
[2023-09-27 03:50] VITALS: BP 137/80; TEMP 97.5; O2SAT 94
[2023-09-27 05:43] LABS: HEMATOCRIT 37.4 % (42.0-52.0); HEMOGLOBIN 12.7 g/dl (13.5-17.5); MEAN CORPUSCULAR HEMOGLOBIN 31.9 pg (27.0-33.0); PLATELET COUNT, AUTOMATED 109 10^3/uL (150-450); RED BLOOD COUNT 3.98 10^6/uL (4.30-6.10); WHITE BLOOD COUNT 4.7 10^3/uL (4.0-10.0)
[2023-09-27 06:11] LABS: ALBUMIN 3.3 G/DL (3.2-5.2); ALKALINE PHOSPHATASE 81 U/L (46-116); ALT/SGPT 132 U/L (7.0-40); AST/SGOT 97 U/L (<34); BILIRUBIN,DIRECT < 0.1 MG/DL (<0.4); BILIRUBIN,TOTAL 0.3 MG/DL (0.3-1.2); BLOOD UREA NITROGEN 11 MG/DL (9-23); CALCIUM LEVEL 9.6 MG/DL (8.5-10.1); CARBON DIOXIDE LEVEL 28 MMOL/L (20-31); CHLORIDE LEVEL 109 MMOL/L (98-107); GLOMERULAR FILTRATION RATE > 60.0 (>56); GLUCOSE, FASTING 107 MG/DL (60-100); MAGNESIUM LEVEL 1.8 MG/DL (1.8-2.4); POTASSIUM SERUM 4.6 MMOL/L (3.5-5.1); SODIUM LEVEL 141 MMOL/L (136-145); TOTAL PROTEIN 6.2 G/DL (5.7-8.2)
[2023-09-27 08:00] VITALS: BP 146/88; TEMP 97.3; O2SAT 98
[2023-09-27 08:31] VITALS: BP 146/88
== END 2023-09-27 10:25 | disposition home or self-care (01) | DRG 897 ==
LOC: M ED 18:44 → M ED INP 09-24 13:55 → M PCU 09-24 20:48
PROVIDERS: ADMIT Student in an Organized Health Care Education/Training Program; ATTEND Family Medicine
DX: F10.231 Alcohol dependence with withdrawal delirium (principal); J96.11 Chronic respiratory failure with hypoxia; G40.509 Epileptic seizures related to external causes, not intractable, without status epilepticus; I10 Essential (primary) hypertension; J44.9 Chronic obstructive pulmonary disease, unspecified; F32.A Depression, unspecified; F41.9 Anxiety disorder, unspecified; F17.200 Nicotine dependence, unspecified, uncomplicated; K21.9 Gastro-esophageal reflux disease without esophagitis; G47.00 Insomnia, unspecified; E02 Subclinical iodine-deficiency hypothyroidism; K70.10 Alcoholic hepatitis without ascites; Z88.5 Allergy status to narcotic agent; Z88.8 Allergy status to other drugs, medicaments and biological substances; Z91.040 Latex allergy status; Z99.81 Dependence on supplemental oxygen; Z79.899 Other long term (current) drug therapy; Z79.82 Long term (current) use of aspirin; Z88.0 Allergy status to penicillin; Z98.1 Arthrodesis status

== ENCOUNTER 2024-02-28 22:32 | Emergency (ER) | payer MEDICARE ==
[~2024-02-28] VITALS: Ht 152.4 cm; Wt 63.6 kg
[2024-02-28] MEDS: THIAMINE 100 MG TAB PO SCH (21:00)
[~2024-02-28 22:32] MED LIST changes: +ACAM0.05 PO; -ADV100INH INH; +ADVA1AER8 INH; +ASPI81CH33 PO; +FLUT1BLS4 INH; +GABA-1172 PO; -GABA-282 PO; +KEPP10002 PO; +MAGN400T2 PO; +PANT40TA29 PO; +med rec comment
[2024-02-28 23:17] LABS: BASO # 0.2 10^3/uL (0.0-0.2); EOS # 0.2 10^3/uL (0.0-0.5); EOS % 2.2 % (0.0-3.0); HEMATOCRIT 42.1 % (42.0-52.0); HEMOGLOBIN 14.7 g/dl (13.5-17.5); LYMPH # 1.5 10^3/uL (1.5-5.0); LYMPH % 19.9 % (24.0-44.0); MEAN CORPUSCULAR HEMOGLOBIN 32.6 pg (27.0-33.0); MEAN CORPUSCULAR HGB CONC 34.9 g/dl (32.0-36.5); MEAN CORPUSCULAR VOLUME 93.3 fl (80.0-96.0); MONO # 0.4 10^3/uL (0.0-0.8); MONO % 5.8 % (2.0-8.0); NEUTROPHILS # 5.3 10^3/uL (1.5-8.5); PLATELET COUNT, AUTOMATED 241 10^3/uL (150-450); RED BLOOD COUNT 4.51 10^6/uL (4.30-6.10); WHITE BLOOD COUNT 7.6 10^3/uL (4.0-10.0)
[2024-02-28 23:41] LABS: AMPHETAMINES LEVEL URINE NEGATIVE (NEGATIVE); BARBITURATES URINE NEGATIVE (NEGATIVE); BENZODIAZEPINES URINE NEGATIVE (NEGATIVE); COCAINE METABOLITE URINE NEGATIVE (NEGATIVE)
[2024-02-28 23:42] LABS: CANNABINOIDS URINE NEGATIVE (NEGATIVE); METHADONE URINE NEGATIVE (NEGATIVE); OPIATES URINE NEGATIVE (NEGATIVE); PHENCYCLIDINE URINE NEGATIVE (NEGATIVE)
[2024-02-29 00:05] LABS: ALBUMIN 3.8 G/DL (3.2-5.2); ALKALINE PHOSPHATASE 71 U/L (40-129); ALT/SGPT 56 U/L (7.0-40); AST/SGOT 56 U/L (<34); BILIRUBIN,DIRECT < 0.1 MG/DL (<0.4); BILIRUBIN,TOTAL 0.3 MG/DL (0.3-1.2); BLOOD UREA NITROGEN 16 MG/DL (9-23); CALCIUM LEVEL 9.3 MG/DL (8.5-10.1); CARBON DIOXIDE LEVEL 23 MMOL/L (20-31); CHLORIDE LEVEL 104 MMOL/L (98-107); CPK CREATINE PHOSPHOKINASE 134 U/L (46-171); GLOMERULAR FILTRATION RATE > 60.0 (>56); GLUCOSE, FASTING 119 MG/DL (60-100); POTASSIUM SERUM 4.2 MMOL/L (3.5-5.1); SALICYLATE LEVEL < 3.0 MG/DL (<30); SODIUM LEVEL 141 MMOL/L (136-145); THYROID STIMULATING HORMONE 0.486 uIU/ML (0.55-4.78); TOTAL PROTEIN 7.4 G/DL (5.7-8.2)
[2024-02-29] MEDS: LORazepam 2 MG TAB PO PRN (00:15)
[2024-02-29 07:40] VITALS: BP 166/105
[2024-02-29] MEDS: lisinopriL 40MG TAB PO ONE (07:40)
[2024-02-29] MEDS: FOLIC ACID 1MG TAB PO SCH (09:15)
[2024-02-29] MEDS: MULTIVITAMINS/MINERALS THERAP 1 TAB PO SCH (09:15)
[2024-02-29 09:29] VITALS: BP 147/90; TEMP 97.1; O2SAT 96
== END 2024-02-29 09:45 | disposition home or self-care (01) ==
LOC: EDBD 22:32 → M ED 22:32
DX: F10.120 Alcohol abuse with intoxication, uncomplicated (principal); F32.A Depression, unspecified; F17.210 Nicotine dependence, cigarettes, uncomplicated; Z88.0 Allergy status to penicillin; Z88.5 Allergy status to narcotic agent; Z88.8 Allergy status to other drugs, medicaments and biological substances; Z91.040 Latex allergy status; Z79.51 Long term (current) use of inhaled steroids; Z79.1 Long term (current) use of non-steroidal anti-inflammatories (NSAID); Z79.899 Other long term (current) drug therapy

== ENCOUNTER 2024-04-23 11:08 | Inpatient (IN) | payer MEDICARE ==
[~2024-04-23] VITALS: Ht 177.8 cm; Wt 76.3 kg
[2024-04-23 12:35] LABS: HEMATOCRIT 40.9 % (42.0-52.0); HEMOGLOBIN 13.5 g/dl (13.5-17.5); MEAN CORPUSCULAR HEMOGLOBIN 31.7 pg (27.0-33.0); PLATELET COUNT, AUTOMATED 190 10^3/uL (150-450); RED BLOOD COUNT 4.26 10^6/uL (4.30-6.10); WHITE BLOOD COUNT 8.2 10^3/uL (4.0-10.0)
[2024-04-23 12:53] LABS: AMPHETAMINES LEVEL URINE NEGATIVE (NEGATIVE); BARBITURATES URINE NEGATIVE (NEGATIVE); COCAINE METABOLITE URINE NEGATIVE (NEGATIVE); METHADONE URINE NEGATIVE (NEGATIVE); OPIATES URINE NEGATIVE (NEGATIVE)
[2024-04-23 12:54] LABS: PHENCYCLIDINE URINE NEGATIVE (NEGATIVE)
[2024-04-23 12:56] LABS: ETHYL ALCOHOL (ETHANOL) < 0.003 % (0.000-0.010)
[2024-04-23 12:57] LABS: SALICYLATE LEVEL < 3.0 MG/DL (<30)
[2024-04-23 12:58] LABS: ALBUMIN 3.9 G/DL (3.2-5.2); ALKALINE PHOSPHATASE 75 U/L (40-129); ALT/SGPT 118 U/L (7.0-40); AST/SGOT 103 U/L (<34); BILIRUBIN,DIRECT 0.1 MG/DL (<0.4); BILIRUBIN,TOTAL 0.4 MG/DL (0.3-1.2); BLOOD UREA NITROGEN 13 MG/DL (9-23); CALCIUM LEVEL 9.7 MG/DL (8.5-10.1); CARBON DIOXIDE LEVEL 26 MMOL/L (20-31); CHLORIDE LEVEL 104 MMOL/L (98-107); CREATININE FOR GFR 0.54 MG/DL (0.70-1.30); GLOMERULAR FILTRATION RATE > 60.0 (>56); GLUCOSE, FASTING 109 MG/DL (60-100); SODIUM LEVEL 137 MMOL/L (136-145); TOTAL PROTEIN 7.6 G/DL (5.7-8.2)
[2024-04-23 13:00] LABS: THYROID STIMULATING HORMONE 2.036 uIU/ML (0.55-4.78)
[2024-04-23 13:10] LABS: BENZODIAZEPINES URINE POSITIVE (NEGATIVE); CANNABINOIDS URINE POSITIVE (NEGATIVE)
[2024-04-23] MEDS ORDERED: MOM 30ML SUSPENSION UDC PO PRN (16:40)
[2024-04-23] MEDS ORDERED: diphenhydrAMINE 25MG CAP PO PRN (16:40)
[2024-04-23] MEDS ORDERED: ACETAMINOPHEN 325 MG TAB PO PRN (16:40)
[2024-04-23] MEDS ORDERED: MAALOX 30 ML SUSP *UDC PO PRN (16:40)
[2024-04-23] MEDS ORDERED: HOME MED LIST COMPLETE! XX SCH (18:10)
[2024-04-23 22:22] VITALS: BP 130/90; TEMP 97.6; O2SAT 99
[2024-04-23 22:25] VITALS: BP 130/90; TEMP 97.6; O2SAT 99
[2024-04-23 23:45] VITALS: BP 128/85
[2024-04-23] MEDS ORDERED: ALBUTEROL 90 MCG/ACT 8GM HFA INHALER INH PRN (23:50)
[2024-04-24] MEDS: QUEtiapine FUMARATE 200 MG TAB PO ONE (01:00)
[2024-04-24] MEDS: traZODone 50 MG TAB PO PRN (01:00)
[2024-04-24 07:09] VITALS: BP 133/90; TEMP 97.6; O2SAT 99
[2024-04-24 09:03] VITALS: BP 109/77
[2024-04-24] MEDS: SERTRALINE HCL 50 MG TAB PO SCH (09:11)
[2024-04-24] MEDS: ACAMPROSATE CALCIUM 333MG TABLET (CAMPRAL) PO SCH (09:11)
[2024-04-24] MEDS: FOLIC ACID 1MG TAB PO SCH (09:11)
[2024-04-24] MEDS: PRAZOSIN 1 MG CAP PO SCH (09:11)
[2024-04-24] MEDS: MAGNESIUM OXIDE 400MG TAB (MAG-OX) PO SCH (09:12)
[2024-04-24] MEDS: NICOTINE 14 MG/24 HR TRANSDERMAL TD SCH (09:12)
[2024-04-24] MEDS: PANTOPRAZOLE 40MG TAB (PROTONIX) PO SCH (09:12)
[2024-04-24] MEDS: THIAMINE 100 MG TAB PO SCH (09:12)
[2024-04-24] MEDS: lisinopriL 40MG TAB PO SCH (09:22)
[2024-04-24] MEDS ORDERED: FLUT1BLS22 IH (15:54)
[2024-04-24 16:00] VITALS: BP 80/56; TEMP 97.9; O2SAT 97
[2024-04-24 20:24] VITALS: BP 98/62; TEMP 97.5; O2SAT 99
[2024-04-24] MEDS: QUEtiapine FUMARATE 200 MG TAB PO SCH (21:07)
[2024-04-24] MEDS: DICLOFENAC EPOLAMINE 1.3% PATCH TOP SCH (21:08)
[2024-04-24] MEDS: ADVAIR HFA 45/21MCG INHALER INH SCH (21:09)
[2024-04-25 06:32] VITALS: BP 92/53; TEMP 97.6; O2SAT 96
[2024-04-25 08:22] VITALS: BP 113/66
[2024-04-25] MEDS: PRAZOSIN 1 MG CAP PO SCH (08:29)
[2024-04-25] MEDS: LIDOCAINE 5% (LIDODERM) PATCH TD SCH (09:47)
[2024-04-25] MEDS: FLUBLOK(EGGFREE) TRIVAL(24-25) VACCINE PF 0.5ML SYRINGE 18YRS & OLDER IM.IMMUN ONE (09:47)
[2024-04-25 15:45] VITALS: BP 121/78; TEMP 98.2; O2SAT 97
[2024-04-25] MEDS: LORazepam 1 MG TAB PO PRN (21:14)
[2024-04-25] MEDS: IBUPROFEN 800 MG TAB PO PRN (21:15)
[2024-04-26 06:18] VITALS: BP 113/66; TEMP 97.4; O2SAT 97
[2024-04-26] MEDS: NICOTINE 21MG/24HR 1 EA TRANSDERMAL TD SCH (09:50)
[2024-04-26 15:08] VITALS: BP 134/82; TEMP 97.6; O2SAT 100
[2024-04-27 06:33] VITALS: BP 116/67; TEMP 97.7; O2SAT 94
[2024-04-27 09:13] VITALS: BP 128/82
[2024-04-27] MEDS: PRAZOSIN 1 MG CAP PO SCH (09:15)
[2024-04-27 15:14] VITALS: BP 120/59; TEMP 98; O2SAT 96
[2024-04-28 06:20] VITALS: BP 100/60; TEMP 97.3; O2SAT 100
[2024-04-28] MEDS ORDERED: MULTIVITAMINS/MINERALS THERAP 1 TAB PO SCH (09:00)
[2024-04-28 10:31] VITALS: BP 125/75
[2024-04-28 10:35] VITALS: BP 124/75
[2024-04-28] MEDS ORDERED: LORazepam 2 MG TAB PO PRN (10:35)
[2024-04-28 18:11] VITALS: BP 125/81; TEMP 97.7
[2024-04-28] MEDS ORDERED: THIAMINE 100 MG TAB PO SCH (21:00)
[2024-04-29 06:33] VITALS: BP 112/64; TEMP 97.8; O2SAT 93
[2024-04-29] MEDS: THIAMINE 100 MG TAB PO SCH (08:07)
[2024-04-29] MEDS ORDERED: FOLIC ACID 1MG TAB PO SCH (09:00)
[2024-04-29] MEDS: QUEtiapine FUMARATE 25 MG TAB PO PRN (14:24)
[2024-04-29 16:07] VITALS: BP 133/78; TEMP 97.3; O2SAT 98
[2024-04-29] MEDS: QUEtiapine FUMARATE 200 MG TAB PO SCH (20:25)
[2024-04-29] MEDS: OLANZapine 5 MG TAB PO PRN (20:26)
[2024-04-29] MEDS: QUEtiapine FUMARATE 50MG TAB PO SCH (20:26)
[2024-04-30 06:45] VITALS: BP 145/77; TEMP 96.8; O2SAT 94
[2024-04-30 17:04] VITALS: BP 139/75; TEMP 97.8; O2SAT 97
[2024-05-01 12:00] VITALS: BP 147/76; O2SAT 98
[2024-05-01] MEDS: ACETAMINOPHEN 500 MG TAB PO PRN (13:04)
[2024-05-01 15:11] LABS: BASO # 0.2 10^3/uL (0.0-0.2); BASO % 2.6 % (0.0-1.0); EOS # 0.6 10^3/uL (0.0-0.5); EOS % 6.9 % (0.0-3.0); HEMATOCRIT 35.2 % (42.0-52.0); LYMPH # 1.8 10^3/uL (1.5-5.0); LYMPH % 22.5 % (24.0-44.0); MEAN CORPUSCULAR HEMOGLOBIN 32.6 pg (27.0-33.0); MEAN CORPUSCULAR HGB CONC 34.1 g/dl (32.0-36.5); MEAN CORPUSCULAR VOLUME 95.7 fl (80.0-96.0); MONO # 0.7 10^3/uL (0.0-0.8); MONO % 8.4 % (2.0-8.0); NEUTROPHILS # 4.8 10^3/uL (1.5-8.5); NEUTROPHILS % 58.9 % (36.0-66.0); PLATELET COUNT, AUTOMATED 301 10^3/uL (150-450); RED BLOOD COUNT 3.68 10^6/uL (4.30-6.10); WHITE BLOOD COUNT 8.1 10^3/uL (4.0-10.0)
[2024-05-01 15:17] LABS: APPEARANCE, URINE CLEAR (CLEAR); BACTERIA, URINE AUTO NEGATIVE (NEGATIVE); BILIRUBIN, URINE AUTO NEGATIVE (NEGATIVE); BLOOD, URINE BLOOD NEGATIVE (NEGATIVE); COLOR, URINE STRAW (YELLOW); GLUCOSE, URINE (UA) AUTO NEGATIVE (NEGATIVE); KETONE, URINE AUTO NEGATIVE (NEGATIVE); LEUKOCYTE ESTERASE, URINE AUTO NEGATIVE (NEGATIVE); NITRITE, URINE AUTO NEGATIVE (NEGATIVE); PROTEIN, URINE AUTO NEGATIVE (NEGATIVE); RBC, URINE AUTO 1 /HPF (0-3); SPECIFIC GRAVITY URINE AUTO 1.002 (1.002-1.035); SQUAMOUS EPITHELIAL CELL UR AU 0 /HPF (0-6); UROBILINOGEN, URINE AUTO 0.2 mg/dL (0.0-2.0); WBC, URINE AUTO 0 /HPF (0-3)
[2024-05-01 15:25] LABS: INR 0.98; PARTIAL THROMBOPLASTIN TIME 26.6 SECONDS (24.8-34.2); PROTHROMBIN TIME 13.3 SECONDS (12.5-14.5)
[2024-05-01 15:34] LABS: ALBUMIN 3.5 G/DL (3.2-5.2); ALKALINE PHOSPHATASE 55 U/L (40-129); ALT/SGPT 96 U/L (7.0-40); AST/SGOT 43 U/L (<34); BILIRUBIN,TOTAL 0.3 MG/DL (0.3-1.2); BLOOD UREA NITROGEN 17 MG/DL (9-23); CALCIUM LEVEL 9.2 MG/DL (8.5-10.1); CARBON DIOXIDE LEVEL 25 MMOL/L (20-31); CHLORIDE LEVEL 106 MMOL/L (98-107); CREATININE FOR GFR 0.69 MG/DL (0.70-1.30); GLOMERULAR FILTRATION RATE > 60.0 (>56); GLUCOSE, FASTING 141 MG/DL (60-100); POTASSIUM SERUM 4.4 MMOL/L (3.5-5.1); SODIUM LEVEL 141 MMOL/L (136-145); TOTAL PROTEIN 6.6 G/DL (5.7-8.2)
[2024-05-01 15:44] VITALS: BP 106/60; TEMP 97.4; O2SAT 97
[2024-05-02 06:26] VITALS: BP 138/82; TEMP 97; O2SAT 98
[2024-05-02 15:30] VITALS: BP 109/67; TEMP 98.3; O2SAT 98
[2024-05-02] MEDS: diphenhydrAMINE 50MG CAP PO ONE (15:45)
[2024-05-03 06:24] VITALS: BP 123/72; TEMP 97; O2SAT 96
[2024-05-03 06:41] VITALS: BP 116/69; TEMP 97.3; O2SAT 98
[2024-05-03] MEDS: LIDOCAINE 5% (LIDODERM) PATCH TD PRN (13:07)
[2024-05-03] MEDS ORDERED: diphenhydrAMINE 25MG CAP PO PRN (15:50)
[2024-05-03 16:10] VITALS: BP 130/75; TEMP 97.8; O2SAT 97
[2024-05-04] MEDS ORDERED: TRAZ-252 PO (03:54)
[2024-05-04] MEDS ORDERED: PRAZ2CAP PO (03:54)
[2024-05-04] MEDS ORDERED: SERT50TA29 PO (03:54)
[2024-05-04] MEDS ORDERED: QUET200T2 PO (03:54)
[2024-05-04] MEDS ORDERED: HYDR-3363 PO (03:54)
[2024-05-04] MEDS ORDERED: ACAM0.05 PO (03:54)
[2024-05-04 08:12] VITALS: BP 149/85
[2024-05-04] MEDS: IBUPROFEN 600MG TAB PO PRN (08:17)
[2024-05-04 08:18] VITALS: BP 149/85
== END 2024-05-04 09:59 | DRG 885 ==
LOC: M ED 11:08 → M ED INP 16:36 → M PSY 22:13
PROVIDERS: ADMIT Internal Medicine; ATTEND Internal Medicine
DX: F33.2 Major depressive disorder, recurrent severe without psychotic features (principal); Z59.00 Homelessness unspecified; R45.851 Suicidal ideations; F41.1 Generalized anxiety disorder; F41.0 Panic disorder [episodic paroxysmal anxiety]; F43.10 Post-traumatic stress disorder, unspecified; F10.20 Alcohol dependence, uncomplicated; I10 Essential (primary) hypertension; J44.9 Chronic obstructive pulmonary disease, unspecified; Z98.1 Arthrodesis status; F17.210 Nicotine dependence, cigarettes, uncomplicated; I95.2 Hypotension due to drugs; T46.4X5A Adverse effect of angiotensin-converting-enzyme inhibitors, initial encounter; K21.9 Gastro-esophageal reflux disease without esophagitis; G89.29 Other chronic pain; M54.9 Dorsalgia, unspecified; R42 Dizziness and giddiness; Z62.810 Personal history of physical and sexual abuse in childhood; Z62.811 Personal history of psychological abuse in childhood; Z65.2 Problems related to release from prison; Z91.148 Patient's other noncompliance with medication regimen for other reason; Z91.51 Personal history of suicidal behavior; Z79.899 Other long term (current) drug therapy; Z88.0 Allergy status to penicillin; Z88.5 Allergy status to narcotic agent; Z88.8 Allergy status to other drugs, medicaments and biological substances; Z91.040 Latex allergy status

== ENCOUNTER 2024-05-22 17:08 | Emergency (ER) | payer MEDICARE ==
[~2024-05-22] VITALS: Ht 177.8 cm; Wt 84.1 kg
[~2024-05-22 17:08] MED LIST changes: +FLUT1BLS22 IH
[2024-05-22] MEDS: levETIRAcetam INJection 1,000 MG in D5W 100 ML IV ONE (18:32)
[2024-05-22 18:59] LABS: AMPHETAMINES LEVEL URINE NEGATIVE (NEGATIVE)
[2024-05-22 19:00] LABS: BARBITURATES URINE NEGATIVE (NEGATIVE); BENZODIAZEPINES URINE NEGATIVE (NEGATIVE); CANNABINOIDS URINE NEGATIVE (NEGATIVE); COCAINE METABOLITE URINE NEGATIVE (NEGATIVE); METHADONE URINE NEGATIVE (NEGATIVE); OPIATES URINE NEGATIVE (NEGATIVE); PHENCYCLIDINE URINE NEGATIVE (NEGATIVE)
[2024-05-22 19:01] LABS: ETHYL ALCOHOL (ETHANOL) < 0.003 % (0.000-0.010)
[2024-05-22 19:03] LABS: BLOOD UREA NITROGEN 16 MG/DL (9-23); CALCIUM LEVEL 9.1 MG/DL (8.5-10.1); CARBON DIOXIDE LEVEL 25 MMOL/L (20-31); CHLORIDE LEVEL 104 MMOL/L (98-107); CREATININE FOR GFR 0.56 MG/DL (0.70-1.30); GLOMERULAR FILTRATION RATE > 60.0 (>56); GLUCOSE, FASTING 74 MG/DL (60-100); POTASSIUM SERUM 4.5 MMOL/L (3.5-5.1); SODIUM LEVEL 138 MMOL/L (136-145)
[2024-05-22 20:14] VITALS: BP 153/85; TEMP 97.7; O2SAT 97
== END 2024-05-22 20:16 | disposition home or self-care (01) ==
LOC: M ED 17:08
DX: G40.909 Epilepsy, unspecified, not intractable, without status epilepticus (principal); J44.9 Chronic obstructive pulmonary disease, unspecified; I10 Essential (primary) hypertension; F17.210 Nicotine dependence, cigarettes, uncomplicated; F10.10 Alcohol abuse, uncomplicated; Z88.0 Allergy status to penicillin; Z88.5 Allergy status to narcotic agent; Z88.8 Allergy status to other drugs, medicaments and biological substances; Z91.040 Latex allergy status; Z79.51 Long term (current) use of inhaled steroids; Z79.899 Other long term (current) drug therapy
CPT/HCPCS: 80048; 80307; 82077; 96365; 96366; 99284; J1953

== ENCOUNTER 2024-10-22 14:48 | Inpatient (IN) | payer MEDICARE, OTHER ==
[~2024-10-22 14:48] MED LIST changes: +LAMO-18 PO; -LAMO25TA4 PO; +LISI40TA10 PO; -LISI40TA4 PO
[2024-10-22] MEDS: NS (Normal Saline) 0.9% 1,000 ML IV ONE (15:13)
[2024-10-22 15:22] LABS: BASO # 0.2 10^3/uL (0.0-0.2); BASO % 2.2 % (0.0-1.0); EOS # 0.8 10^3/uL (0.0-0.5); EOS % 10.3 % (0.0-3.0); LYMPH # 2.1 10^3/uL (1.5-5.0); LYMPH % 27.6 % (24.0-44.0); MONO # 0.6 10^3/uL (0.0-0.8); MONO % 7.9 % (2.0-8.0); NEUTROPHILS # 3.9 10^3/uL (1.5-8.5); NEUTROPHILS % 51.7 % (36.0-66.0); PLATELET COUNT, AUTOMATED 213 10^3/uL (150-450)
[2024-10-22 15:51] LABS: SALICYLATE LEVEL < 3.0 MG/DL (<30)
[2024-10-22 15:54] LABS: ALT/SGPT 35 U/L (7.0-40); AST/SGOT 44 U/L (<34); CALCIUM LEVEL 9.0 MG/DL (8.5-10.1); CARBON DIOXIDE LEVEL 25 MMOL/L (20-31); CHLORIDE LEVEL 106 MMOL/L (98-107); CREATININE FOR GFR 0.59 MG/DL (0.70-1.30); GLOMERULAR FILTRATION RATE > 90.0 (>56); POTASSIUM SERUM 4.9 MMOL/L (3.5-5.1); SODIUM LEVEL 140 MMOL/L (136-145)
[2024-10-22 16:12] LABS: CPK CREATINE PHOSPHOKINASE 226 U/L (46-171); ETHYL ALCOHOL (ETHANOL) 0.326 % (0.000-0.010)
[2024-10-22] MEDS: D5W IV ONE (16:33)
[2024-10-22] MEDS: LEVETIRACETAM IV ONE (16:33)
[2024-10-22] MEDS: levETIRAcetam INJection 1,000 MG in IV 1 EA IV ONE (17:07)
[2024-10-22 17:23] LABS: AMPHETAMINES LEVEL URINE NEGATIVE (NEGATIVE); BARBITURATES URINE NEGATIVE (NEGATIVE); BENZODIAZEPINES URINE NEGATIVE (NEGATIVE); CANNABINOIDS URINE NEGATIVE (NEGATIVE); COCAINE METABOLITE URINE NEGATIVE (NEGATIVE); METHADONE URINE NEGATIVE (NEGATIVE); OPIATES URINE NEGATIVE (NEGATIVE); PHENCYCLIDINE URINE NEGATIVE (NEGATIVE)
[2024-10-22] MEDS: NS (Normal Saline) 0.9% 1,000 ML IV SCH (18:23)
[2024-10-22] MEDS: PANTOPRAZOLE 40MG VIAL IV SCH (18:29)
[2024-10-22 18:51] LABS: PROLACTIN 10.83 NG/ML (2.1-17.7)
[2024-10-22 18:53] LABS: INR 0.91
[2024-10-22] MEDS: MULTIVITAMIN -ADULT INJECTION 10 ML, THIAMINE INJection 100 MG, FOLIC ACID 1 MG in NS (... IV ONE (20:37)
[2024-10-22 21:10] VITALS: BP 138/78; TEMP 97.7; O2SAT 98
[2024-10-22 21:25] VITALS: BP 138/78
[2024-10-22] MEDS: THIAMINE 100 MG TAB PO SCH (21:40)
[2024-10-22 21:55] VITALS: BP 130/81; TEMP 97.3; O2SAT 95
[2024-10-22 23:25] VITALS: BP 116/83; TEMP 97.7; O2SAT 95
[2024-10-23] VITALS (13 sets, daily range): BP systolic 122–180; BP diastolic 67–94; TEMP 97.9–99.3; O2SAT 89–94
[2024-10-23] MEDS: levETIRAcetam INJection 500 MG in DEXTROSE 5% (D5W) MINI-BAG PLU 100 ML IV SCH (04:18)
[2024-10-23 06:44] LABS: PLATELET COUNT, AUTOMATED 160 10^3/uL (150-450)
[2024-10-23] MEDS: ADVAIR HFA 230/21 MCG INHALER INH SCH (07:06)
[2024-10-23 07:10] LABS: ALT/SGPT 31 U/L (7.0-40); AST/SGOT 32 U/L (<34); CALCIUM LEVEL 8.1 MG/DL (8.5-10.1); CARBON DIOXIDE LEVEL 27 MMOL/L (20-31); CHLORIDE LEVEL 106 MMOL/L (98-107); CREATININE FOR GFR 0.54 MG/DL (0.70-1.30); GLOMERULAR FILTRATION RATE > 90.0 (>56); POTASSIUM SERUM 4.0 MMOL/L (3.5-5.1); SODIUM LEVEL 143 MMOL/L (136-145)
[2024-10-23 08:58] LABS: ETHYL ALCOHOL (ETHANOL) 0.005 % (0.000-0.010)
[2024-10-23] MEDS: FOLIC ACID 1 MG TAB PO SCH (10:13)
[2024-10-23] MEDS: MULTIVITAMINS/MINERALS THERAP 1 TAB PO SCH (10:14)
[2024-10-23] MEDS: NICOTINE 21 MG/24 HR 1 EA TRANSDERMAL TD SCH (10:15)
[2024-10-23] MEDS: ENOXAPARIN 40 MG/0.4 ML SYRINGE (J1650 PER 10MG) SC SCH (10:15)
[2024-10-23] MEDS: DIVALPROEX 500 MG TAB PO SCH (14:33)
[2024-10-23] MEDS ORDERED: NALT50TA4 PO (14:44)
[2024-10-23] MEDS ORDERED: LEVE500T5 PO (14:44)
[2024-10-23] MEDS ORDERED: DIVA500T9 PO (14:44)
[2024-10-23] MEDS ORDERED: TRAZ-186 PO (14:45)
[2024-10-23] MEDS: ACETAMINOPHEN 325 MG TAB PO PRN (14:46)
[2024-10-23] MEDS ORDERED: HOME MED LIST COMPLETE! XX SCH (14:50)
[2024-10-23] MEDS ORDERED: traZODone 50 MG TAB PO PRN (21:35)
[2024-10-24] VITALS: BP 125/79
[2024-10-24 03:50] VITALS: BP 114/68; TEMP 98.2; O2SAT 92
[2024-10-24 04:00] VITALS: BP 122/85
[2024-10-24 06:40] LABS: PLATELET COUNT, AUTOMATED 145 10^3/uL (150-450)
[2024-10-24 07:14] LABS: ALT/SGPT 28 U/L (7.0-40); AST/SGOT 24 U/L (<34); CALCIUM LEVEL 8.8 MG/DL (8.5-10.1); CARBON DIOXIDE LEVEL 27 MMOL/L (20-31); CHLORIDE LEVEL 105 MMOL/L (98-107); CREATININE FOR GFR 0.52 MG/DL (0.70-1.30); GLOMERULAR FILTRATION RATE > 90.0 (>56); POTASSIUM SERUM 3.7 MMOL/L (3.5-5.1); SODIUM LEVEL 143 MMOL/L (136-145)
[2024-10-24 08:30] VITALS: BP 137/85
[2024-10-24 08:31] VITALS: BP 137/85
[2024-10-24 12:20] VITALS: BP 130/85; TEMP 98.6; O2SAT 92
[2024-10-24] MEDS ORDERED: DIVA-41 PO (15:16)
== END 2024-10-24 17:27 | disposition home or self-care (01) | DRG 101 ==
LOC: M ED 14:48 → M ED INP 17:29 → M MSPAV 21:08
PROVIDERS: ADMIT Internal Medicine; ATTEND Internal Medicine
DX: R56.9 Unspecified convulsions (principal); R45.851 Suicidal ideations; F33.1 Major depressive disorder, recurrent, moderate; F10.239 Alcohol dependence with withdrawal, unspecified; F10.229 Alcohol dependence with intoxication, unspecified; I10 Essential (primary) hypertension; J44.9 Chronic obstructive pulmonary disease, unspecified; F41.1 Generalized anxiety disorder; G47.33 Obstructive sleep apnea (adult) (pediatric); F17.200 Nicotine dependence, unspecified, uncomplicated; Z96.653 Presence of artificial knee joint, bilateral; Z98.1 Arthrodesis status; Z79.899 Other long term (current) drug therapy; Z88.0 Allergy status to penicillin; Z88.5 Allergy status to narcotic agent; Z88.8 Allergy status to other drugs, medicaments and biological substances; Z91.040 Latex allergy status